=== PATIENT | male | born 1930 | race Caucasian/White ===

== ENCOUNTER 2016-09-22 08:23 | Emergency (ER) | payer OTHER, MEDICARE ==
[~2016-09-22] VITALS: Ht 167.6 cm; Wt 81.0 kg
[~2016-09-22 08:23] MED LIST: ALPR-411 PO; FLM4 PO; PRLSR20 PO; SYN25 PO; [UNRECOGNIZED DRUG - CODE] PO
[2016-09-22 08:25] VITALS: TEMP 36.5; Ht 167.6 cm; Wt 81.0 kg
--- NOTE | 2016-09-22 08:49 | EMERGENCY ROOM VISIT NOTE ---
History First contact with patient: 08:26 Chief Complaint: HEAD INJURY (MINOR) Stated Complaint: ARM PAIN History of Present Illness The patient is a 86 year old male who presents to the Emergency Room via ambulance with complaints of "head injury". The patient states that yesterday around 10 or 10:30 AM, he was cutting trees at work, when a tree fell and struck him on the head. He was wearing a hard hat. He states that it knocked him to the ground. He does not think he lost consciousness. He states that his neck is sore, and when he went to sit up out of bed today he had the worst pain of his life underneath his right shoulder blade. He also notes dizziness at times when he tries to sit up. He vomited this morning once, and 4 times in route to the hospital here today. The patient denies any anticoagulants, but does note that he is on a chronic NSAID therefore may have thinner blood. He denies any chest pain or shortness of breath. Tetanus is believed to be up to date. Review of Systems A complete 10-point Review of Systems was discussed with the patient, with pertinent positives and negatives listed in the History of Present Illness. All remaining Review of Systems questions can be considered negative unless otherwise specified. Past Medical/Surgical History Medical Problems: (1) Depression (2) Prostate cancer Family History No pertinent. Social History Smoking Status: Former Smoker Marital Status: Current/Historical Medications Scheduled Alprazolam (Xanax), 0.5 MG PO HS Cholecalciferol (Vitamin D3), 1 CAP PO DAILY Etodolac (Lodine), 1-2 TAB PO DAILY Levothyroxine Sodium (Levothyroxine Sodium), 1 TAB PO DAILY Omeprazole (Prilosec), 20 MG PO DAILY Tamsulosin Hcl (Flomax), 0.4 MG PO DAILY Physical Exam Vital Signs Date Time Temp Pulse Resp B/P (MAP) Pulse Ox O2 Delivery O2 Flow Rate FiO2 09/22/16 12:04 54 18 173/66 96 09/22/16 11:38 51 16 154/75 97 Nasal Cannula 2.0 09/22/16 11:01 166/78 09/22/16 10:43 51 18 09/22/16 10:31 166/72 09/22/16 10:13 51 18 99 09/22/16 10:01 162/72 09/22/16 09:43 52 19 99 09/22/16 09:43 51 18 172/73 95 Nasal Cannula 2.0 09/22/16 09:04 51 18 153/67 96 Nasal Cannula 2.0 09/22/16 08:59 54 09/22/16 08:25 36.5 56 18 166/70 94 Room Air Physical Exam VITAL SIGNS - Vital signs and nursing notes were reviewed. Patient is afebrile , bradycardic, somewhat hypertensive, and is saturating well on room air. GENERAL -86 [id number] appearing his stated age. Communicates well with provider and answers questions appropriately. SKIN - Gross examination of the entire body surface demonstrate no open lacerations to the body surface. There is evidence of a abrasion to the forehead, and right ear. HEAD - Normocephalic, Atraumatic. No Grant's Sign or Raccoon's Eyes. No depressed skull fractures palpable. EYES - PERRL with EOMI bilaterally. Without subconjunctival hemorrhage. Palpebral conjunctiva pink and moist with no injection. EARS - No deformities of external structures noted on gross examination bilaterally. No hemotympanum present. No tympanic perforation noted. Handle of malleus, umbo, cone of light, pars tensa/flaccid all easily visualized. NOSE - Midline and without cyanosis. No epistaxis or clear watery discharge noted. Septum midline without deviation. No septal hematoma noted. No overlying ecchymosis noted. MOUTH/OROPHARYNX - Without perioral cyanosis. Tongue midline with equal elevation of palate bilaterally. No blood noted in the oropharynx. No tonsillar hypertrophy, erythema, or exudates noted. No dental fractures noted. NECK - Cervical collar in place. No tenderness to palpation over the cervical spinous processes. No cervical paraspinal muscle tenderness noted. LUNGS - Chest wall symmetric without accessory muscle use, intercostals retractions, or central cyanosis. No flail chest or depressed fractures noted. No paradoxical chest wall movements noted. No tenderness to palpation across the anterior and posterior chest multani. No tenderness with deep inspiration noted against the examiner's applied pressure to the lateral chest multani. Normal vesicular breath sounds CTA B/L. No wheezes, rales, or rhonchi appreciated. CARDIAC - RRR with S1/S2. No murmur, rubs, or gallops appreciated. MUSCULOSKELETAL: There is tenderness to palpation overlying the thoracic spine region, in the area inferior to the right scapula. ABDOMEN - Abdominal contour normal and without pulsations or visible masses. BS normoactive all four quadrants. No rebound tenderness or guarding noted. Negative Crow's or Laguerre Burgess's Signs. No tenderness, palpable masses, hepatosplenomegaly, or ascites noted. EXTREMITIES - No gross deformities noted of the extremities. There is no tenderness to palpation of the extremities. +5/5 strength noted in UE/LE bilaterally. NEUROLOGIC - Cranial nerves II through XII grossly intact. Sensory intact to light touch throughout. PSYCH - A&O. Pt is very pleasant and interacts well with examiner. Medical Decision & Procedures ER Provider Diagnostic Interpretation: CHEST ONE VIEW PORTABLE CLINICAL HISTORY: Tree struck head, confusion. Back pain COMPARISON STUDY: Chest radiograph November 05, 2008. FINDINGS: Lung volumes are diminished. There is no pneumothorax. Left basilar opacity is present. Mild cardiomegaly is unchanged. There is possible left paraspinal opacity. IMPRESSION: 1. No pneumothorax. 2. Pulmonary vascular congestion without overt pulmonary edema. 3. Hazy left basilar and left paraspinal opacity which can be assessed on follow-up chest CT. Electronically signed by: Ankit White M.D. 09/22/2016 9:02 AM Dictated Date/Time: 09/22/2016 8:57 AM ADDENDUM Addendum: Maxillofacial CT demonstrated an acute nondisplaced left temporal bone fracture which is better depicted on that exam. Electronically signed by: Ankit White M.D. 09/22/2016 10:22 AM Dictated Date/Time: 09/22/2016 10:[address] OF THE HEAD WITHOUT CONTRAST CLINICAL HISTORY: Tree branch struck head, emesis. COMPARISON STUDY: Head CT June 22, 2016. TECHNIQUE: Helical axial images of the head were obtained without IV contrast. Automated exposure control was utilized for the study. A dose lowering technique was utilized adhering to the principles of ALARA. FINDINGS: No acute intracranial hemorrhage, midline shift or mass effect is present. Ventricular system is stable. Basilar cisterns are patent. There are no CT findings to suggest acute dural sinus thrombosis or acute territorial infarct. There is a small amount of pneumocephalus overlying the anterior right frontal lobe shown on axial image 15 of 32. There is suspected hemorrhage within the right maxillary and sphenoid sinuses. Right mastoid air cells are partially opacified. No calvarial fracture is identified. IMPRESSION: 1. No acute intracranial hemorrhage. 2. Small amount of pneumocephalus overlying the anterior right frontal lobe, posterior to the right frontal sinuses. No adjacent fracture through the sinuses identified by CT. In addition, trace pneumocephalus adjacent to the right mastoid air cells with fluid within the right mastoid air cells. No temporal bone fracture identified on the maxillofacial CT although the pneumocephalus suggests a nonvisualized nondisplaced fracture involving the sinuses or right mastoid air cells. Electronically signed by: Ankit White M.D. 09/22/2016 10:15 AM Dictated Date/Time: 09/22/2016 9:56 AM [~ rep ct add3]] CT OF THE CERVICAL SPINE WITHOUT CONTRAST CLINICAL HISTORY: Tree branch struck head, emesis, neck pain COMPARISON STUDY: No previous studies for comparison. TECHNIQUE: Helical axial images of the cervical spine were obtained without IV contrast. Sagittal and coronal reconstructions were viewed. A dose lowering technique was utilized adhering to the principles of ALARA. FINDINGS: Craniocervical junction is intact. There is an acute nondisplaced fracture of the right superior articulating facet of C7. No additional cervical spine fractures are present. Moderate multilevel degenerative disc disease and facet arthrosis is present. IMPRESSION: Acute nondisplaced fracture of the right superior articulating facet of C7. Electronically signed by: Ankit White M.D. 09/22/2016 10:27 AM Dictated Date/Time: 09/22/2016 10:[address] WITHOUT CONTRAST CLINICAL HISTORY: Struck on head with tree, facial pain/pressure COMPARISON STUDY: Maxillofacial CT June 22, 2013. TECHNIQUE: A maxillofacial CT was performed without IV contrast. Coronal and sagittal reformats were viewed. A dose lowering technique was utilized adhering to the principles of ALARA. FINDINGS: Note is made of an acute nondisplaced left temporal bone fracture shown on axial image 75 of 558. The globes are intact. There is no retrobulbar hematoma. There is suspected hemorrhage within the sphenoid and right maxillary sinuses. There is partial opacification of the right mastoid air cells. No temporal bone fracture is identified on this examination. There are old bilateral nasal bone fractures. Small amount of pneumocephalus is noted overlying the right frontal lobe as well as trace pneumocephalus adjacent to the right mastoid air cells. IMPRESSION: 1. Acute nondisplaced left temporal bone fracture. 2. Small amount of pneumocephalus anterior to the right frontal lobe as well as trace pneumocephalus adjacent to the right mastoid air cells which are partially opacified. This pneumocephalus indicates a fracture involving the sinuses or right temporal bones which is not definitively identified on this exam. The left temporal bone fracture may account for this pneumocephalus. 3. Suspected hemorrhage within the sphenoid and right maxillary sinuses. Electronically signed by: Ankit White M.D. 09/22/2016 10:21 AM Dictated Date/Time: 09/22/2016 10:16 AM THORACIC SPINE WITHOUT CLINICAL HISTORY: Tree branch struck head, emesis, back pain COMPARISON STUDY: No previous studies for comparison. FINDINGS: Alignment of the thoracic spine is anatomic. There is no acute thoracic spine fracture. Mild multilevel degenerative disc disease is present. There is mild loss of height of the superior endplate of L1 with a Schmorl's node. This is likely chronic. IMPRESSION: 1. No acute thoracic spine fracture or subluxation. 2. Mild loss of height of the superior plate of L1 with a Schmorl's node. This is likely chronic. Electronically signed by: Ankit White M.D. 09/22/2016 10:40 AM Dictated Date/Time: 09/22/2016 10:36 AM LUMBAR SPINE WITHOUT CLINICAL HISTORY: Tree branch struck head, emesis, back pain COMPARISON STUDY: No previous studies for comparison. FINDINGS: There is mild loss of height with a Schmorl's node involving the superior endplate of L1. This is likely chronic. No acute lumbar spine fracture is identified. [id number] multilevel degenerative changes are present. Paravertebral soft tissues are unremarkable. A large lesion arising from the lower pole of the left kidney is partially imaged on this exam. This measures at least 9.1 cm. This measures water attenuation within visualized portions. IMPRESSION: 1. Mild loss of height of the superior plate of L1 with a Schmorl's node. This is likely chronic. 2. No acute lumbar spine fracture or subluxation. 3. Partially visualized lesion arising from the lower pole of the left kidney which likely reflects a cyst. However, a follow-up nonemergent renal ultrasound is recommended for confirmation. Electronically signed by: Ankit White M.D. 09/22/2016 10:44 AM Dictated Date/Time: 09/22/2016 10:40 AM CHEST COMBO ANGIO DISSECTION CLINICAL HISTORY: Trauma. Left scapular pain. COMPARISON STUDY: No previous studies for comparison. TECHNIQUE: Unenhanced and arterial phase imaging of the chest was performed. Injection of 93 cc Optiray 320 IV was uneventful. Sagittal and coronal reconstructions were viewed as well as maximal intensity projections on an independent 3-D workstation. FINDINGS: The caliber of the thoracic aorta is normal. There is no evidence of traumatic injury to the thoracic aorta. There is no thoracic aortic dissection. The heart is moderately enlarged. There is no pericardial effusion. No pneumothorax or pleural effusion is present. There is no pulmonary contusion. Dependent opacities within the lungs suggest atelectasis. The thoracic spine will be reported separately. No acute rib fractures are identified. Central airways are patent. There is no left scapular fracture. There is a 1.2 cm right hepatic lobe cyst. IMPRESSION: 1. No acute traumatic findings within the chest. 2. No thoracic aortic dissection. 3. Moderate cardiomegaly. 4. Dependent airspace opacities within lungs which suggest atelectasis. Electronically signed by: Ankit White M.D. 09/22/2016 10:36 AM Dictated Date/Time: 09/22/2016 10:27 AM Laboratory Results Test 09/22/16 08:50 09/22/16 08:59 Prothrombin Time 11.5 SECONDS (9.0-12.0) Prothromb Time International Ratio 1.1 (0.9-1.1) Activated Partial Thromboplast Time 26.2 SECONDS (21.0-31.0) Partial Thromboplastin Ratio 1.0 Magnesium Level 2.1 mg/dl (1.8-2.4) Bedside Hemoglobin 15.6 g/dl (14.0-18.0) Bedside Hematocrit 46 % (42-52) Bedside Sodium 142 mEq/L (135-144) Bedside Potassium 3.8 mEq/L (3.3-5.0) Bedside Chloride 102 mEq/L (101-112) Bedside Total CO2 25 mEq/l (24-31) Anion Gap 20.0 mmol/L (16-25) Bedside Blood Urea Nitrogen 17 mg/dl (7-18) Bedside Creatinine 0.9 mg/dl (0.6-1.3) Bedside Glucose (other) 193 mg/dl (70-99) Bedside Ionized Calcium (Denise) 1.18 mmol/l (1.12-1.32) Medications Administered Medications (Trade) Dose Ordered Sig/Edilma Route Start Time Stop Time Status Last Admin Dose Admin Diphenhydramine HCl (Benadryl Inj) 50 mg NOW STAT IV 09/22/16 08:53 09/22/16 08:55 DC 09/22/16 09:04 50 MG Methylprednisolone Sodium Succinate (Solu-Medrol IV) 125 mg NOW STAT IV 09/22/16 08:53 09/22/16 08:55 DC 09/22/16 09:04 125 MG Sodium Chloride 1,000 ml @ 200 mls/hr Q5H STAT IV 09/22/16 08:57 09/22/16 13:25 DC 09/22/16 08:57 200 MLS/HR Ondansetron HCl (Zofran Inj) 4 mg NOW STAT IV 09/22/16 11:27 09/22/16 11:29 DC 09/22/16 11:38 4 MG Fentanyl Citrate (Fentanyl Inj) 50 mcg NOW STAT IV 09/22/16 11:27 09/22/16 11:29 DC 09/22/16 11:38 50 MCG Medical Decision Patient was seen and evaluated as above. After obtaining a thorough history and physical examination IV access was initiated and the above workup was performed. Patient presents to us today status post being struck in the head by a tree yesterday. He has had dizziness, emesis and severe pain in his back. C-collar was already applied via ambulance in route. Physical examination is negative for pain in the spinous process of the c spine but is positive in the thoracic spine, as well as pressure in the left sinus region. Chest x-ray reveals hazy opacity in the left lung field. CT was obtained of the head, C-spine, chest, thoracic and lumbar spine. He was also obtained a maxillofacial region. Patient has an iodine allergy, however he was premedicated with 50 mg of Benadryl, and 125 mg of solumedrol prior to this CT scan. There is a left temporal bone fracture, C7 fracture, and pneumocephalus. At this time I believe that transfer to a trauma facility is appropriate. He declined pain medication. He was given 200 mL of normal saline here per hour. He was then given 50 mcg of fentanyl, and 4 mg of Zofran for his pain. He appears stable for discharge. His vital signs are stable, I spoke with the ER attending at [facility]. This was Dr. Velez. He accepted the patient for transfer. Patient at this time appears stable for ground transfer. The attending has been involved with the patient case. Vital signs stable. In the evaluation and treatment of this patient, the following differential diagnoses were considered: Concussion, Contrecoup Injury, Brain Tumor, Depression, Encephalitis, Hypothyroidism, Meningitis, CVA, TIA, Migraine, Cluster Headache, Intracranial Abnormality, Intracranial Hemorrhage, Subdural Hematoma, Subarachnoid Hemorrhage, Hydrocephalus, C-spine fracture, among others. Medication Reconcilliation Current Medication List: was personally reviewed by me Impression Primary Impression: Closed head injury Additional Impressions: Pneumocephalus, traumatic Temporal bone fracture Closed C7 fracture Critical Care I have personally spent greater than 30 minutes of critical care time in the direct management of this patient. This includes bedside care, interpretation of diagnostic studies, and testing, discussion with consultants, patient, and family members, and other required patient management activities. This 30 minutes is in excess of all separately billable procedures. Departure Information Dispostion Transfer Acute Care Facility Condition FAIR Referrals Malcolm Cruz M.D. (PCP) Patient Instructions [facility] Problem Qualifiers Primary Impression: Closed head injury Encounter type: initial encounter Qualified Codes: S09.90XA - Unspecified injury of head, initial encounter Additional Impressions: Temporal bone fracture Encounter type: initial encounter Fracture type: closed Qualified Codes: S02.19XA - Other fracture of base of skull, initial encounter for closed fracture Closed C7 fracture Encounter type: initial encounter Fracture alignment: nondisplaced
[2016-09-22] MEDS ORDERED: METHYLPREDNISOLONE 125 MG VIAL IV STA (08:53)
[2016-09-22] MEDS ORDERED: DiphenhydrAMINE HCL 50 MG/ML VIAL IV STA (08:53)
[2016-09-22] MEDS ORDERED: SODIUM CHLORIDE 0.9% 1000ML 1,000 ML IV STA (08:57)
--- NOTE | 2016-09-22 09:04 | DIAGNOSTIC IMAGING REPORT ---
CHEST ONE VIEW PORTABLE CLINICAL HISTORY: Tree struck head, confusion. Back pain COMPARISON STUDY: Chest radiograph November 05, 2008. FINDINGS: Lung volumes are diminished. There is no pneumothorax. Left basilar opacity is present. Mild cardiomegaly is unchanged. There is possible left paraspinal opacity. IMPRESSION: 1. No pneumothorax. 2. Pulmonary vascular congestion without overt pulmonary edema. 3. Hazy left basilar and left paraspinal opacity which can be assessed on follow-up chest CT. Electronically signed by: Ankit White M.D. 09/22/2016 9:02 AM Dictated Date/Time: 09/22/2016 8:57 AM
[2016-09-22 09:10] LABS: INR 1.1 (0.9-1.1); PROTHROMBIN TIME (PATIENT) 11.5 SECONDS (9.0-12.0)
[2016-09-22 09:14] LABS: ISTAT CREATININE 0.9 mg/dl (0.6-1.3); ISTAT HEMOGLOBIN 15.6 g/dl (14.0-18.0); ISTAT IONIZED CALCIUM 1.18 mmol/l (1.12-1.32)
[2016-09-22] MEDS ORDERED: OPTIRAY 320 IV PRN (09:15)
[2016-09-22] MEDS ORDERED: LEVO75TA5 PO (09:58)
[2016-09-22] MEDS ORDERED: ETOD-146 PO (09:58)
[2016-09-22] MEDS ORDERED: TAMS0.4C38 PO (09:58)
[2016-09-22] MEDS ORDERED: CHOL2000 PO (09:59)
[2016-09-22] MEDS ORDERED: PRLSR20 PO (09:59)
--- NOTE | 2016-09-22 10:17 | DIAGNOSTIC IMAGING REPORT ---
ADDENDUM Addendum: Maxillofacial CT demonstrated an acute nondisplaced left temporal bone fracture which is better depicted on that exam. Electronically signed by: Ankit White M.D. 09/22/2016 10:22 AM Dictated Date/Time: 09/22/2016 10:[address] OF THE HEAD WITHOUT CONTRAST CLINICAL HISTORY: Tree branch struck head, emesis. COMPARISON STUDY: Head CT June 22, 2016. TECHNIQUE: Helical axial images of the head were obtained without IV contrast. Automated exposure control was utilized for the study. A dose lowering technique was utilized adhering to the principles of ALARA. FINDINGS: No acute intracranial hemorrhage, midline shift or mass effect is present. Ventricular system is stable. Basilar cisterns are patent. There are no CT findings to suggest acute dural sinus thrombosis or acute territorial infarct. There is a small amount of pneumocephalus overlying the anterior right frontal lobe shown on axial image 15 of 32. There is suspected hemorrhage within the right maxillary and sphenoid sinuses. Right mastoid air cells are partially opacified. No calvarial fracture is identified. IMPRESSION: 1. No acute intracranial hemorrhage. 2. Small amount of pneumocephalus overlying the anterior right frontal lobe, posterior to the right frontal sinuses. No adjacent fracture through the sinuses identified by CT. In addition, trace pneumocephalus adjacent to the right mastoid air cells with fluid within the right mastoid air cells. No temporal bone fracture identified on the maxillofacial CT although the pneumocephalus suggests a nonvisualized nondisplaced fracture involving the sinuses or right mastoid air cells. Electronically signed by: Ankit White M.D. 09/22/2016 10:15 AM Dictated Date/Time: 09/22/2016 9:56 AM
--- NOTE | 2016-09-22 10:23 | DIAGNOSTIC IMAGING REPORT ---
MAXILLOFACIAL CT WITHOUT CONTRAST CLINICAL HISTORY: Struck on head with tree, facial pain/pressure COMPARISON STUDY: Maxillofacial CT June 22, 2013. TECHNIQUE: A maxillofacial CT was performed without IV contrast. Coronal and sagittal reformats were viewed. A dose lowering technique was utilized adhering to the principles of ALARA. FINDINGS: Note is made of an acute nondisplaced left temporal bone fracture shown on axial image 75 of 558. The globes are intact. There is no retrobulbar hematoma. There is suspected hemorrhage within the sphenoid and right maxillary sinuses. There is partial opacification of the right mastoid air cells. No temporal bone fracture is identified on this examination. There are old bilateral nasal bone fractures. Small amount of pneumocephalus is noted overlying the right frontal lobe as well as trace pneumocephalus adjacent to the right mastoid air cells. IMPRESSION: 1. Acute nondisplaced left temporal bone fracture. 2. Small amount of pneumocephalus anterior to the right frontal lobe as well as trace pneumocephalus adjacent to the right mastoid air cells which are partially opacified. This pneumocephalus indicates a fracture involving the sinuses or right temporal bones which is not definitively identified on this exam. The left temporal bone fracture may account for this pneumocephalus. 3. Suspected hemorrhage within the sphenoid and right maxillary sinuses. Electronically signed by: Ankit White M.D. 09/22/2016 10:21 AM Dictated Date/Time: 09/22/2016 10:16 AM
--- NOTE | 2016-09-22 10:28 | DIAGNOSTIC IMAGING REPORT ---
CT OF THE CERVICAL SPINE WITHOUT CONTRAST CLINICAL HISTORY: Tree branch struck head, emesis, neck pain COMPARISON STUDY: No previous studies for comparison. TECHNIQUE: Helical axial images of the cervical spine were obtained without IV contrast. Sagittal and coronal reconstructions were viewed. A dose lowering technique was utilized adhering to the principles of ALARA. FINDINGS: Craniocervical junction is intact. There is an acute nondisplaced fracture of the right superior articulating facet of C7. No additional cervical spine fractures are present. Moderate multilevel degenerative disc disease and facet arthrosis is present. IMPRESSION: Acute nondisplaced fracture of the right superior articulating facet of C7. Electronically signed by: Ankit White M.D. 09/22/2016 10:27 AM Dictated Date/Time: 09/22/2016 10:22 AM
--- NOTE | 2016-09-22 10:37 | DIAGNOSTIC IMAGING REPORT ---
CHEST COMBO ANGIO DISSECTION CLINICAL HISTORY: Trauma. Left scapular pain. COMPARISON STUDY: No previous studies for comparison. TECHNIQUE: Unenhanced and arterial phase imaging of the chest was performed. Injection of 93 cc Optiray 320 IV was uneventful. Sagittal and coronal reconstructions were viewed as well as maximal intensity projections on an independent 3-D workstation. FINDINGS: The caliber of the thoracic aorta is normal. There is no evidence of traumatic injury to the thoracic aorta. There is no thoracic aortic dissection. The heart is moderately enlarged. There is no pericardial effusion. No pneumothorax or pleural effusion is present. There is no pulmonary contusion. Dependent opacities within the lungs suggest atelectasis. The thoracic spine will be reported separately. No acute rib fractures are identified. Central airways are patent. There is no left scapular fracture. There is a 1.2 cm right hepatic lobe cyst. IMPRESSION: 1. No acute traumatic findings within the chest. 2. No thoracic aortic dissection. 3. Moderate cardiomegaly. 4. Dependent airspace opacities within lungs which suggest atelectasis. Electronically signed by: Ankit White M.D. 09/22/2016 10:36 AM Dictated Date/Time: 09/22/2016 10:27 AM
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
[2016-09-22] MEDS ORDERED: FENTANYL CITRATE INJ 50 MCG/1 ML 2 ML VIAL IV STA (11:27)
[2016-09-22] MEDS ORDERED: ONDANSETRON INJ 2 MG/ML 2 ML VIAL IV STA (11:27)
[2016-09-22 12:04] VITALS: BP 173/66; PULSE 54; O2SAT 96
--- NOTE | 2016-09-22 14:58 | EMERGENCY ROOM VISIT NOTE ---
ED Visit Note First contact with patient: 08:26 I have personally seen and evaluated the patient with the PA. I agree with the diagnosis and management decisions and have been personally involved in the case. The patient was evaluated, C-spine exam reveals some tenderness along the cervical and midthoracic spine. He does complain of a headache. CT scan results were reviewed with the PA. Transfer arrangements were made. Please see Jared Mehta PA-C's notes for further details of the history, physical and visit.
== END 2016-09-22 12:04 | disposition short-term general hospital (02) ==
LOC: EDBD 08:23 → C.EDA 08:24
DX: S09.90XA Unspecified injury of head, initial encounter (principal); S02.19XA Other fracture of base of skull, initial encounter for closed fracture; S12.601A Unspecified nondisplaced fracture of seventh cervical vertebra, initial encounter for closed fracture; G93.89 Other specified disorders of brain; W22.8XXA Striking against or struck by other objects, initial encounter; Y93.H9 Activity, other involving exterior property and land maintenance, building and construction; Y99.0 Civilian activity done for income or pay; F32.9 Major depressive disorder, single episode, unspecified; Z85.46 Personal history of malignant neoplasm of prostate; Z79.1 Long term (current) use of non-steroidal anti-inflammatories (NSAID); Z79.899 Other long term (current) drug therapy

== ENCOUNTER 2016-12-19 17:47 | Emergency (ER) | payer OTHER, MEDICARE ==
[~2016-12-19] VITALS: Ht 167.6 cm; Wt 75.2 kg
[~2016-12-19 17:47] MED LIST changes: +CHOL2000 PO; +ETOD-146 PO; -FLM4 PO; +LEVO75TA5 PO; -SYN25 PO; +TAMS0.4C38 PO; -[UNRECOGNIZED DRUG - CODE] PO
[2016-12-19 17:59] VITALS: Ht 167.6 cm; Wt 75.2 kg
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
[2016-12-19] MEDS ORDERED: ACET-1256 PO (18:28)
[2016-12-19] MEDS ORDERED: DIPHTHERIA/TETANUS/PERTUSSIS 0.5 ML SYR/VIAL IM. ONE (18:45)
[2016-12-19 19:14] LABS: HEMATOCRIT 47.1 % (42-52); MEAN CELL VOLUME 91.5 fL (80-100); MEAN CORPUSCULAR HEMOGLOBIN 32.4 pg (25-34); MEAN CORPUSCULAR HGB CONC 35.5 g/dl (32-36); MEAN PLATELET VOLUME 10.5 fL (7.4-10.4); PLATELET COUNT 183 K/uL (130-400); RED BLOOD COUNT 5.15 M/uL (4.7-6.1); WHITE BLOOD COUNT 9.92 K/uL (4.8-10.8)
[2016-12-19 19:25] LABS: INR 1.1 (0.9-1.1); PROTHROMBIN TIME (PATIENT) 11.3 SECONDS (9.0-12.0)
--- NOTE | 2016-12-19 19:29 | DIAGNOSTIC IMAGING REPORT ---
CT SCAN OF THE BRAIN WITHOUT IV CONTRAST CLINICAL HISTORY: Trauma. COMPARISON STUDY: CT the brain dated 09/22/2016. TECHNIQUE: Unenhanced axial CT scan of the brain is performed from the vertex to the skull base. CT DOSE: 638.56 mGycm FINDINGS: Brain parenchyma: There are age-related involutional changes noting mild subcortical and periventricular microangiopathic change. There is no parenchymal hematoma, mass effect, or evidence of acute territorial ischemia by CT criteria. Dunlap-white matter is preserved. Asymmetric hyperdensity along the left tensor cerebella lead is new from 09/22/2016 and likely represents trace subdural hemorrhage. No additional foci of extra-axial blood are suspected. Ventricles, sulci, cisterns: Prominent secondary to involutional change. Intracranial vasculature: There is atherosclerotic calcification of the cavernous carotid and vertebral arteries. Calvarium: The skeletal structures are osteopenic. No depressed calvarial fracture is seen. Sinuses and mastoids: There is complete opacification of the left sphenoid sinus. Mild mucosal thickening is seen in the right sphenoid sinus. The remaining visualized paranasal sinuses are clear. There is a right mastoid effusion. The left mastoid air cells are well pneumatized. Orbits: The bony orbits are grossly intact. IMPRESSION: 1. Suspect trace subdural hemorrhage along the left tentorium cerebelli. 2. No additional foci of hemorrhage is seen. There is no mass effect or evidence of acute territorial ischemia by CT criteria. 3. Left sphenoid sinus disease and right mastoid effusion as above. Electronically signed by: Luis Glass M.D. 12/19/2016 7:28 PM Dictated Date/Time: 12/19/2016 7:10 PM
--- NOTE | 2016-12-19 19:33 | DIAGNOSTIC IMAGING REPORT ---
CT SCAN OF THE CERVICAL SPINE CLINICAL HISTORY: Trauma. COMPARISON STUDY: CT scan of the cervical spine dated 09/22/2016. TECHNIQUE: CT scan of the cervical spine is performed from the skull base to the upper thoracic spine. Images are reviewed in the axial, sagittal, and coronal planes. IV contrast was not administered for this examination. A dose lowering technique was utilized adhering to the principles of ALARA. CT DOSE: 425.04 mGycm FINDINGS: Skeletal structures: The skeletal structures are osteopenia. There is no evidence of fracture or subluxation involving the cervical spine. Vertebral body height is maintained. There is minimal retrolisthesis at C4-C5. Alignment is otherwise preserved. There is straightening of the cervical lordosis. The odontoid process and lateral masses are intact. The atlantoaxial articulation is preserved noting advanced productive degenerative change. The spinous processes appear intact. There is moderate to advanced multilevel cervical spondylosis. Uncovertebral and facet arthropathy contributes to foraminal narrowing at most levels. Intervertebral discs: Moderate to advanced disc space narrowing is seen from C3 -C4 through C6-C7. Central canal: Posterior disc osteophyte complexes at C3-C4, C5-C6, and C6-C7 likely contribute to acquired compromise of the central canal. Soft tissues: The prevertebral and paraspinous soft tissues are within normal limits. Calvarium: The visualized calvarium at the skull base appears intact. Brain parenchyma: Partially visualized brain parenchyma the skull base is within normal limits noting age-related involutional change. Sinuses and mastoids: There is opacification of the left sphenoid sinus. Trace because of thickening is noted in the right sphenoid sinus. There is a right mastoid effusion. The left mastoid air cells are well pneumatized. Lung apices: Clear as visualized. IMPRESSION: 1. There is no evidence of fracture or subluxation involving the cervical spine. 2. Osteopenia and spondylotic change as above. Electronically signed by: Luis Glass M.D. 12/19/2016 7:32 PM Dictated Date/Time: 12/19/2016 7:28 PM
[2016-12-19 19:41] LABS: BUN/CREATININE RATIO 11.5 (10-20); CALCIUM 9.3 mg/dl (8.5-10.1); CREATININE 1.21 mg/dl (0.60-1.40); POTASSIUM 4.1 mmol/L (3.5-5.1)
[2016-12-19] MEDS ORDERED: SODIUM CHLORIDE 0.9% 1000ML 1,000 ML IV STA (19:42)
[2016-12-19] MEDS ORDERED: LIDOCAINE/EPINEPHRINE 1% 20 ML VIAL INFIL ONE (19:45)
[2016-12-19] MEDS ORDERED: LEVETIRACETAM IV 1,000 MG in DEXTROSE 5% 100ML 100 ML IV ONE (19:45)
[2016-12-19 19:53] LABS: BETA-HYDROXYBUTYRATE 10.14 mg/dL (0.2-2.81)
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
--- NOTE | 2016-12-19 20:25 | DIAGNOSTIC IMAGING REPORT ---
LEFT HUMERUS 2 VIEWS CLINICAL HISTORY: Left arm injury. FINDINGS: AP and lateral views of the left humerus are obtained. No prior studies are available for comparison at the time of dictation. The skeletal structures are osteopenic. There is no radiographic evidence of left humeral fracture. The elbow and shoulder joints are grossly maintained. Productive change is seen at the acromioclavicular joint. Soft tissue edema is present in the left arm. No radiodense foreign body is seen. IMPRESSION: 1. Osteopenia with no radiographic evidence of left humeral fracture. 2. Soft tissue edema. No radiodense foreign body is identified. Electronically signed by: Luis Glass M.D. 12/19/2016 8:24 PM Dictated Date/Time: 12/19/2016 8:23 PM
--- NOTE | 2016-12-19 20:27 | DIAGNOSTIC IMAGING REPORT ---
SINGLE VIEW PELVIS CLINICAL HISTORY: Trauma. FINDINGS: 2 AP pelvic radiographs are correlated with pelvic CT dated 01/16/2008. The skeletal structures are osteopenic. There is no radiographic evidence of fracture in the hips or bony pelvis. Moderate arthritic change with joint space narrowing is seen in both hips. Sclerotic change is identified in the sacroiliac joints. There is a remote/healed right pubic ring fracture. This was also seen by CT in 2007. Lumbosacral spondylosis is partially imaged. Brachytherapy seeds are noted in the prostate gland. The overlying soft tissues are normal as visualized. Advanced atherosclerotic calcification is seen in the visualized abdominal aorta and iliac arteries. IMPRESSION: Osteopenia and degenerative change as above. There is no radiographic evidence of acute fracture involving the hips or bony pelvis. Electronically signed by: Luis Glass M.D. 12/19/2016 8:26 PM Dictated Date/Time: 12/19/2016 8:24 PM
--- NOTE | 2016-12-19 20:44 | DIAGNOSTIC IMAGING REPORT ---
SINGLE VIEW CHEST CLINICAL HISTORY: Trauma. FINDINGS: An AP, portable, upright supine radiograph is compared to study dated 09/22/2016. The examination is degraded by portable technique and patient rotation. The heart is enlarged and there is atherosclerotic calcification of the thoracic aorta. The pulmonary vasculature is noncongested. Chronic interstitial thickening is similar to previous. Minimal left basilar atelectasis is observed. No airspace consolidation is seen typical for pneumonia. There is no large pleural effusion or pneumothorax. The skeletal structures are osteopenic. The bony thorax is grossly intact. IMPRESSION: Cardiomegaly with no acute cardiopulmonary abnormality. Electronically signed by: Luis Glass M.D. 12/19/2016 8:42 PM Dictated Date/Time: 12/19/2016 8:41 PM
[2016-12-19 21:16] VITALS: BP 128/77; PULSE 64; TEMP 37.2; O2SAT 96
== END 2016-12-19 21:18 | disposition short-term general hospital (02) ==
LOC: C.EDB 17:49
DX: S06.5X0A Traumatic subdural hemorrhage without loss of consciousness, initial encounter (principal); V85.5XXA Driver of special construction vehicle injured in nontraffic accident, initial encounter; Z23 Encounter for immunization; E03.9 Hypothyroidism, unspecified; F32.9 Major depressive disorder, single episode, unspecified; Z80.42 Family history of malignant neoplasm of prostate; Z87.81 Personal history of (healed) traumatic fracture; Z79.899 Other long term (current) drug therapy; Z91.09 Other allergy status, other than to drugs and biological substances

== ENCOUNTER 2017-03-18 16:47 | Inpatient (IN) | payer OTHER, MEDICARE ==
[~2017-03-18] VITALS: Ht 167.6 cm; Wt 73.5 kg
[~2017-03-18 16:47] MED LIST changes: +ACET-1256 PO; -CHOL2000 PO; -ETOD-146 PO; -PRLSR20 PO
[2017-03-18] MEDS ORDERED: SODIUM CHLORIDE 0.9% 1000ML 1,000 ML IV STA ×2 (17:07→17:51)
--- NOTE | 2017-03-18 17:29 | DIAGNOSTIC IMAGING REPORT ---
CHEST ONE VIEW PORTABLE CLINICAL HISTORY: Atypical chest pain, fatigue, flulike symptoms COMPARISON STUDY: 12/19/2016 FINDINGS: The cardiac and mediastinal contours are normal. There is no evidence of focal pulmonary consolidation. There is no evidence of failure. No pleural effusions are visualized.[ IMPRESSION: No active disease in the chest. Electronically signed by: Kehinde Che M.D. 03/18/2017 5:28 PM Dictated Date/Time: 03/18/2017 5:28 PM
--- NOTE | 2017-03-18 17:40 | EMERGENCY ROOM VISIT NOTE ---
History Report prepared by Won: Chelo Gonzalez Under the Supervision of: Dr. Bennie Quevedo M.D. First contact with patient: 17:05 Chief Complaint: WEAKNESS Stated Complaint: WEAKNESS FROM SHINGLES, FLU LIKE SX- REFERRED History of Present Illness The patient is an 87 year old male who presents to the Emergency Room with complaints of persistent weakness starting 4 days ago. The patient was sent to the ED by his PCP for weakness and dehydration. He is currently being treated for shingles. He started acyclovir 10 days ago. Earlier last week, he started having some flu symptoms. He has had vomiting, shakes, and chills. He has not taken his temperature. He is normally able to walk without assistance, but recently has been unable to. He has not been eating well. He has had loose stools. He has had dark urine which he thinks might have blood. He denies any burning with urination. He has a history of prostate cancer and hypothyroidism. He was recently started on metformin for diabetes. He received a flu shot this season. His shingles has been improving on the medication. Source of History: patient, family Onset: 4 days ago Position: other (global) Quality: other (weakness) Timing: other (persistent) Associated Symptoms: + chills, + vomiting Note: Pt reports loose stools, dark urine. Pt denies burning with urination. Review of Systems See HPI for pertinent positives and negatives. A total of ten systems were reviewed and were otherwise negative. 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, traumatic (12) Prostate cancer (13) Temporal bone fracture (14) Transaminitis Surgical Problems: (1) History of arthroplasty of left knee (2) History of arthroplasty of right knee (3) Hx of rotator cuff surgery Family History Diabetes mellitus Social History Smoking Status: Never Smoker Alcohol Use: none Marital Status: Current/Historical Medications Scheduled Empagliflozin (Jardiance), 25 MG PO HS Levothyroxine Sodium (Levothyroxine Sodium), 75 MCG PO DAILY Metformin Hcl (Glucophage), 500 MG PO QAM Tamsulosin Hcl (Flomax), 0.4 MG PO DAILY Scheduled PRN Acetaminophen (Tylenol), 1,000 MG PO Q6 PRN for Headache or Pain Alprazolam (Xanax), 0.5 MG PO HS PRN for Anxiety Allergies Coded Allergies: Iodinated Diagnostic Agents (Verified Allergy, Unknown, ., 03/18/17) Iodine (Verified Allergy, Unknown, ALLERGY TO IVP DYE, 03/18/17) Physical Exam Vital Signs Date Time Temp Pulse Resp B/P (MAP) Pulse Ox O2 Delivery O2 Flow Rate FiO2 03/18/17 19:52 61 21 108/63 93 Room Air 03/18/17 19:30 64 21 94 03/18/17 19:00 62 21 96 03/18/17 17:21 74 03/18/17 17:12 Room Air 03/18/17 17:02 36.4 53 16 88/56 95 Room Air Physical Exam GENERAL: Awake, alert, fatigued-appearing, in no distress HENT: Normocephalic, atraumatic. Dry cracked mucous membranes. EYES: Normal conjunctiva. Sclera non-icteric. NECK: Supple. No nuchal rigidity. FROM. No JVD. RESPIRATORY: Clear to auscultation. CARDIAC: Regular rate, normal rhythm. Extremities warm and well perfused. Pulses equal. ABDOMEN: Soft, non-distended. No tenderness to palpation. No rebound or guarding. No masses. RECTAL: Deferred. MUSCULOSKELETAL: Chest examination reveals no tenderness. The back is symmetrical on inspection without obvious abnormality. There is no CVA tenderness to palpation. No joint edema. LOWER EXTREMITIES: Calves are equal size bilaterally and non-tender. No edema. No discoloration. NEURO: Normal sensorium. No sensory or motor deficits noted. SKIN: Resolving erythema and dry pustules in the left flank CVA area consistent with known zoster. Medical Decision & Procedures ER Provider Diagnostic Interpretation: Radiology results as stated below per my review and radiologist interpretation: CHEST ONE VIEW PORTABLE CLINICAL HISTORY: Atypical chest pain, fatigue, flulike symptoms COMPARISON STUDY: 12/19/2016 FINDINGS: The cardiac and mediastinal contours are normal. There is no evidence of focal pulmonary consolidation. There is no evidence of failure. No pleural effusions are visualized.[ IMPRESSION: No active disease in the chest. Electronically signed by: Kehinde Che M.D. 03/18/2017 5:28 PM Dictated Date/Time: 03/18/2017 5:[address] SCAN OF THE ABDOMEN AND PELVIS WITHOUT CONTRAST CLINICAL HISTORY: Abdominal pain. Elevated LFTs. COMPARISON STUDY: No previous studies for comparison. TECHNIQUE: CT scan of the abdomen and pelvis was performed from the lung bases to the proximal femurs. Images are reviewed in the axial, sagittal, and coronal planes. IV contrast was not administered for this examination. A dose lowering technique was utilized adhering to the principles of ALARA. CT DOSE: 356.37 mGy.cm FINDINGS: Lower chest: The heart is mildly enlarged. There is bilateral lower lobe bronchial wall thickening and basilar atelectatic change. Trace effusions are suspected. Liver: The unenhanced liver is normal in size, contour, and attenuation. There is no intrahepatic biliary ductal dilatation. Gallbladder: Mildly distended. No calculi are visualized. Spleen: Normal in size and attenuation. Pancreas: Unremarkable. Adrenal glands: Unremarkable. Kidneys: No renal, ureteral, or bladder calculi are visualized. There is a 9.7 cm left renal cyst. Bowel: There is colonic diverticulosis. No acute peridiverticular inflammatory changes are visualized. The appendix appears normal. There is no evidence of bowel obstruction. There is no evidence of free air. Peritoneum: There is no intraperitoneal free air or abdominal ascites. Vasculature: The abdominal aorta is normal in course and caliber. Adenopathy: None. Pelvic viscera: Prostate patient therapy seeds are visualized. Skeletal structures: There is an old right inferior pubic ramus fracture. No lytic or suspicious blastic lesions are visualized. A right femoral head calcification while nonspecific likely represents a bone island. IMPRESSION: 1. Examination limited due to the lack of intravenous and oral contrast 2. No evidence of bowel obstruction. No evidence of free air 3. Diverticulosis. No evidence of acute diverticulitis 4. Normal appendix 5. 9.7 cm left renal cyst 6. Mild gallbladder distention. No calculi are visualized. No evidence of significant ductal dilatation. Electronically signed by: Kehinde Che M.D. 03/18/2017 8:15 PM Dictated Date/Time: 03/18/2017 8:09 PM Laboratory Results 03/18/17 17:31 Red Blood Count 5.07, Mean Corpuscular Volume 93.5, Mean Corpuscular Hemoglobin 33.5, Mean Corpuscular Hemoglobin Concent 35.9, Mean Platelet Volume 11.4, Neutrophils (%) (Auto) 90.7, Lymphocytes (%) (Auto) 4.8, Monocytes (%) (Auto) 3.8, Eosinophils (%) (Auto) 0.2, Basophils (%) (Auto) 0.1, Neutrophils # (Auto) 17.31, Lymphocytes # (Auto) 0.91, Monocytes # (Auto) 0.72, Eosinophils # (Auto) 0.03, Basophils # (Auto) 0.02 Test 03/18/17 17:31 03/18/17 21:17 White Blood Count 19.06 K/uL (4.8-10.8) Red Blood Count 5.07 M/uL (4.7-6.1) Hemoglobin 17.0 g/dL (14.0-18.0) Hematocrit 47.4 % (42-52) Mean Corpuscular Volume 93.5 fL (80-100) Mean Corpuscular Hemoglobin 33.5 pg (25-34) Mean Corpuscular Hemoglobin Concent 35.9 g/dl (32-36) Platelet Count 68 K/uL (130-400) Mean Platelet Volume 11.4 fL (7.4-10.4) Neutrophils (%) (Auto) 90.7 % Lymphocytes (%) (Auto) 4.8 % Monocytes (%) (Auto) 3.8 % Eosinophils (%) (Auto) 0.2 % Basophils (%) (Auto) 0.1 % Neutrophils # (Auto) 17.31 K/uL (1.4-6.5) Lymphocytes # (Auto) 0.91 K/uL (1.2-3.4) Monocytes # (Auto) 0.72 K/uL (0.11-0.59) Eosinophils # (Auto) 0.03 K/uL (0-0.5) Basophils # (Auto) 0.02 K/uL (0-0.2) RDW Standard Deviation 47.9 fL (36.4-46.3) RDW Coefficient of Variation 14.2 % (11.5-14.5) Immature Granulocyte % (Auto) 0.4 % Immature Granulocyte # (Auto) 0.07 K/uL (0.00-0.02) Platelet Estimate DECREASED Spherocytes 1+ Magnesium Level 2.6 mg/dl (1.8-2.4) Direct Bilirubin 3.0 mg/dl (0-0.2) Troponin I 0.019 ng/ml (0-0.045) Lipase 886 U/L (73-393) Influenza Type A Antigen Neg for Influ A (NEG) Influenza Type B Antigen Neg for Influ B (NEG) Urine Color DK YELLOW Urine Appearance CLOUDY (CLEAR) Urine pH 5.0 (4.5-7.5) Urine Specific [place] 1.023 (1.000-1.030) Urine Protein TRACE (NEG) Urine Glucose (UA) 3+ (NEG) Urine Ketones TRACE (NEG) Urine Occult Blood 1+ (NEG) Urine Nitrite POS (NEG) Urine Bilirubin NEG (NEG) Urine Urobilinogen NEG (NEG) Urine Leukocyte Esterase MODERATE (NEG) Urine WBC (Auto) >30 /hpf (0-5) Urine RBC (Auto) 0-4 /hpf (0-4) Urine Hyaline Casts (Auto) 1-5 /lpf (0-5) Urine Epithelial Cells (Auto) 0-5 /lpf (0-5) Urine Bacteria (Auto) 4+ (NEG) Urine Pathogenic Casts 1-5 GRANULAR CASTS /lpf (0) Urine Sperm (Auto) (NOT PRESENT) Laboratory results reviewed by me Medications Administered Medications (Trade) Dose Ordered Sig/Edilma Route Start Time Stop Time Status Last Admin Dose Admin Sodium Chloride 1,000 ml @ 999 mls/hr Q1H1M STAT IV 03/18/17 17:07 03/18/17 18:07 DC 03/18/17 17:39 999 MLS/HR Sodium Chloride 1,000 ml @ 999 mls/hr Q1H1M STAT IV 03/18/17 17:51 03/18/17 18:51 DC 03/18/17 18:13 999 MLS/HR ECG Indication: weakness Rate (beats per minute): 72 Rhythm: sinus rhythm Findings: PVC (frequent), RBBB, no acute ischemic change, left axis deviation Comparison ECG Date: 05-Nov-2008 Change: no significant change ED Course 1706: The patient was evaluated in room C1B. A complete history and physical exam was performed. 2020: Upon reexamination, the patient was stable. I discussed the test results and treatment plan with him and his family. The patient will be evaluated for further management. 2049: I discussed the patient with Martin Aragon - He will evaluate the patient for further treatment. 2051: I reevaluated the patient. I updated him and his family on the plan. Medical Decision I reviewed the patient's past medical history, medications, and the nursing notes as described above. Differential diagnosis: influenza, viral syndrome, pneumonia, bronchitis, UTI, dehydration, electrolyte abnormality, ACS, CHF. The patient is a 87-year-old gentleman with a past medical history of prostate cancer on Flomax, NIDDM2 was started on metformin and recent diagnosis of zoster on acyclovir who presents emergency Department with worsening generalized weakness over the past 4 days in the setting of congestion and loose stools per hpi. On arrival the patient is AF with SBP upper 80s and otherwise stable. On exam the patient has dry cracked mucous membranes. He has left lower abdomen and flank resolving erythema and dried pustules consistent with the patients known zoster. Labs notable for a leukocytosis to 19. LFTs also elevated with tbli 4.6 and dbili 3.0. AST 150, ALT 400s. He is concerning for new hepatitis. CT abd/pel limited secondary to lack of contrast however no acute findings. Patient does appear clinically dry with BUN/Cr/creatinine>20. Feeling improved after IV fluid hydration with SBP 100s. Review of recent lab tests for both inpatient and outpatient suggest patient's hepatitis is likely new possibly related to his recent acyclovir vs Zoster. Chest x-ray otherwise negative and the patient is afebrile. UA pending. Case was discussed with Martin Aragon, who will admit the patient for further management. Medication Reconcilliation Current Medication List: was personally reviewed by me Blood Pressure Screening Patient's blood pressure: Normal blood pressure Blood pressure disposition: Did not require urgent referral Consults Time Called: 2047 Consulting Physician: Martin Aragon Returned Call: 2049 I discussed the patient with him - He will evaluate the patient for further treatment. Impression Primary Impression: Hepatitis Additional Impression: Dehydration Scribe Attestation The scribe's documentation has been prepared under my direction and personally reviewed by me in its entirety. I confirm that the note above accurately reflects all work, treatment, procedures, and medical decision making performed by me. Departure Information Dispostion Being Evaluated By Hospitalist Referrals Malcolm Cruz M.D. (PCP) Patient Instructions My [facility] Problem Qualifiers
[2017-03-18 17:43] LABS: HEMATOCRIT 47.4 % (42-52); MEAN CELL VOLUME 93.5 fL (80-100); MEAN CORPUSCULAR HEMOGLOBIN 33.5 pg (25-34); MEAN CORPUSCULAR HGB CONC 35.9 g/dl (32-36); RED CELL DISTRIBUTION WIDTH CV 14.2 % (11.5-14.5); RED CELL DISTRIBUTION WIDTH SD 47.9 fL (36.4-46.3); WHITE BLOOD COUNT 19.06 K/uL (4.8-10.8)
[2017-03-18 18:02] LABS: ALBUMIN 2.9 gm/dl (3.4-5.0); CALCIUM 8.9 mg/dl (8.5-10.1); CREATININE 1.32 mg/dl (0.60-1.40); POTASSIUM 3.8 mmol/L (3.5-5.1)
[2017-03-18 18:07] LABS: TOTAL PROTEIN 6.4 gm/dl (6.4-8.2)
[2017-03-18] MEDS ORDERED: EMPA1TAB3 PO (18:10)
[2017-03-18] MEDS ORDERED: GLC/500 PO (18:10)
[2017-03-18 18:12] LABS: MEAN PLATELET VOLUME 11.4 fL (7.4-10.4); PLATELET COUNT 68 K/uL (130-400)
[2017-03-18 18:13] LABS: BASO % 0.1 %; BASO ABS # 0.02 K/uL (0-0.2); EOS % 0.2 %; EOS ABS # 0.03 K/uL (0-0.5); IG# 0.07 K/uL (0.00-0.02); LYMPH % 4.8 %; LYMPH ABS # 0.91 K/uL (1.2-3.4); MONO % 3.8 %; MONO ABS # 0.72 K/uL (0.11-0.59); NEUT % 90.7 %; NEUT ABS # 17.31 K/uL (1.4-6.5)
[2017-03-18 19:02] LABS: INFLUENZA B ANTIGEN Neg for Influ B (NEG)
--- NOTE | 2017-03-18 20:16 | DIAGNOSTIC IMAGING REPORT ---
CT SCAN OF THE ABDOMEN AND PELVIS WITHOUT CONTRAST CLINICAL HISTORY: Abdominal pain. Elevated LFTs. COMPARISON STUDY: No previous studies for comparison. TECHNIQUE: CT scan of the abdomen and pelvis was performed from the lung bases to the proximal femurs. Images are reviewed in the axial, sagittal, and coronal planes. IV contrast was not administered for this examination. A dose lowering technique was utilized adhering to the principles of ALARA. CT DOSE: 356.37 mGy.cm FINDINGS: Lower chest: The heart is mildly enlarged. There is bilateral lower lobe bronchial wall thickening and basilar atelectatic change. Trace effusions are suspected. Liver: The unenhanced liver is normal in size, contour, and attenuation. There is no intrahepatic biliary ductal dilatation. Gallbladder: Mildly distended. No calculi are visualized. Spleen: Normal in size and attenuation. Pancreas: Unremarkable. Adrenal glands: Unremarkable. Kidneys: No renal, ureteral, or bladder calculi are visualized. There is a 9.7 cm left renal cyst. Bowel: There is colonic diverticulosis. No acute peridiverticular inflammatory changes are visualized. The appendix appears normal. There is no evidence of bowel obstruction. There is no evidence of free air. Peritoneum: There is no intraperitoneal free air or abdominal ascites. Vasculature: The abdominal aorta is normal in course and caliber. Adenopathy: None. Pelvic viscera: Prostate patient therapy seeds are visualized. Skeletal structures: There is an old right inferior pubic ramus fracture. No lytic or suspicious blastic lesions are visualized. A right femoral head calcification while nonspecific likely represents a bone island. IMPRESSION: 1. Examination limited due to the lack of intravenous and oral contrast 2. No evidence of bowel obstruction. No evidence of free air 3. Diverticulosis. No evidence of acute diverticulitis 4. Normal appendix 5. 9.7 cm left renal cyst 6. Mild gallbladder distention. No calculi are visualized. No evidence of significant ductal dilatation. Electronically signed by: Kehinde Che M.D. 03/18/2017 8:15 PM Dictated Date/Time: 03/18/2017 8:09 PM
[2017-03-18] MEDS ORDERED: GLUCAGON FOR INJ 1 MG VIAL SQ PRN (21:45)
[2017-03-18] MEDS ORDERED: NITROGLYCERIN 0.4 MG SL PER TAB CHARGE SL PRN (21:45)
[2017-03-18] MEDS ORDERED: GLUCOSE 10 TABS/TUBE PO PRN (21:45)
[2017-03-18] MEDS ORDERED: DEXTROSE 50% 50 ML SYR IV PRN (21:45)
[2017-03-18] MEDS ORDERED: ONDANSETRON INJ 2 MG/ML 2 ML VIAL IV PRN (21:45)
[2017-03-18] MEDS ORDERED: GLUCOSE 40% GEL 15 GM TUBE PO PRN (21:45)
[2017-03-18] MEDS ORDERED: ALPRAZOLAM 0.5 MG TAB PO PRN (22:00)
[2017-03-18 22:24] LABS: PTT PATIENT 27.9 SECONDS (21.0-31.0)
--- NOTE | 2017-03-18 22:28 | History and Physical ---
History & Physical Date & Time of Service: Mar 18, 2017 at 21:52 Chief Complaint: Weakness From Shingles, Flu Like Sx- Referred Primary Care Physician: Malcolm Cruz M.D. History of Present Illness Source: patient, family, clinic records, hospital records Pt is 87 y/o M with PMH prostate CA s/p radiation, hypothyroidism, left renal cyst, DM II, anxiety presented to ER from PCP office with c/o generalized weakness. Pt states past week with intermittent nausea x 1 week, vomited last week, none since. Reports 3 BM's daily and one is loose. Intermittent red blood noted on toilet paper or stool over past couple of years and pt reports was dx with hemorrhoids in past. Denies any worsening or increased bleeding. Reports urine looking dark for past week. He denies any abdominal pain. Denies melena. States 4 days ago had shaking chills for one day. Did not take temperature at that time. Pt states decreased appetite and admits hasn't been eating or drinking much. Pt states 2 days ago coughed a couple of days and had voice hoarseness. that has since resolved. On 03/07/17 was seen at PCP office for a rash that he had for several days and dx with shingles and started on Valtrex. Reports taking first couple of days and then only took 1-2 pills a day for a couple of days as wondered if Valtrex was causing nausea. Denies hematochezia. Reports uses Tylenol rarely and denies recent use. Denies use of any other pain medications. Denies ETOH use or hx liver problems in past. Was started on Jardiance and Metformin in 12/18 for DM II. Denies other new medications or other supplements. Denies diaphoresis, VILLAREAL, dizziness, syncope, vision changes, CP, SOB, orthopnea, palpitations, sore throat, choking, otalgia, rhinorrhea, paresthesias, extremity edema, dysuria, urinary frequency or retention. In ER pt afebrile. BP: 88/56 to 108/63. R: 21, P: 53-61. 95% on RA. WBC: 19. Plt : 68. Na: 133. Cr: 1.3 (was 1 on 12/18). Gluc: 173, Total bilirubin: 4.6, direct bilirubin: 3.0, AST: 159, ALT: 409, Alk Phos: 542, Lipase: 886. (Pt had normal LFTs in 2017 on out pt records). negative rapid influenza. CT abd/pelvis : no bowel obstruction, diverticulosis, L renal cyst, mild gallbladder distension, no ductal dilation. Pending U/A. Pt given 2L NSS in ER. Past Medical/Surgical History Medical Problems: (1) Depression Status: Chronic (2) Prostate cancer Permanent Comment: Adenocarcinoma the prostate, presenting PSA 7.03 clinical stage T2b Biopsy stage T2c suppression Status post completion of radiation therapy to the pelvis completed 03/09/2008 received 5530 cGy Status post seed implant 03/30/2008 received 8500 cGy as boost Status: Resolved Family History Diabetes mellitus FH: CAD (coronary artery disease) FH: cancer of GI tract FH: prostate cancer Social History Smoking Status: Never Smoker Smokeless Tobacco Use: No Alcohol Use: none Drug Use: none Marital Status: Housing status: lives with significant other Immunizations History of Influenza Vaccine: No History of Tetanus Vaccine?: No History of Pneumococcal: No History of Hepatitis B Vaccine: No Multi-Drug Resistant Organisms History of MDRO: No Allergies Coded Allergies: Iodinated Diagnostic Agents (Verified Allergy, Unknown, ., 03/18/17) Iodine (Verified Allergy, Unknown, ALLERGY TO IVP DYE, 03/18/17) Home Medications Scheduled Empagliflozin (Jardiance), 25 MG PO HS Levothyroxine Sodium (Levothyroxine Sodium), 75 MCG PO DAILY Metformin Hcl (Glucophage), 500 MG PO QAM Tamsulosin Hcl (Flomax), 0.4 MG PO DAILY Scheduled PRN Acetaminophen (Tylenol), 1,000 MG PO Q6 PRN for Headache or Pain Alprazolam (Xanax), 0.5 MG PO HS PRN for Anxiety Review of Systems Constitutional: + chills, + weakness (see HPI), + fatigue, No weight loss Eyes: No worsening of vision, No eye pain, No redness ENT: No unusual epistaxis, No nasal symptoms, No sore throat, No trouble swallowing Respiratory: + cough (see HPI), No sputum, No wheezing, No shortness of breath , No dyspnea on exertion, No dyspnea at rest, No hemoptysis Cardiovascular: No chest pain, No orthopnea, No PND, No edema, No palpitations Abdomen: + problem reported (see HPI) Genitourinary - Male: + problem reported (see HPI) Neurologic: No paralysis, No numbness/tingling, No vertigo Endocrine: No excessive thirst, No excessive urination Hematologic / Lymphatic: No clotting problems, No night sweats Integumentary: + rash (see HPI) Physical Exam Vital Signs Date Time Temp Pulse Resp B/P (MAP) Pulse Ox O2 Delivery O2 Flow Rate FiO2 03/18/17 19:52 61 21 108/63 93 Room Air 03/18/17 19:30 64 21 94 03/18/17 19:00 62 21 96 03/18/17 17:21 74 03/18/17 17:12 Room Air 03/18/17 17:02 36.4 53 16 88/56 95 Room Air General Appearance: no apparent distress, + pertinent finding (mildly ill appearing) Head: normocephalic, atraumatic Eyes: normal inspection, PERRL, EOMI, sclerae normal ENT: pharynx normal, + pertinent finding (mucous membranes dry. hard of hearing ) Neck: supple, no JVD, trachea midline Respiratory/Chest: chest non-tender, lungs clear, normal breath sounds, no respiratory distress, no accessory muscle use Cardiovascular: regular rate, rhythm (rate 62), no edema, no murmur, normal peripheral pulses Abdomen/GI: normal bowel sounds, non tender, soft, + pertinent finding ( negative hernandez's sign) Back: no CVA tenderness Extremities/Musculoskelatal: normal inspection, no calf tenderness, normal capillary refill, no pedal edema, normal range of motion, non-tender Neurologic/Psych: alert, normal mood/affect, oriented x 3 Skin: normal color, warm/dry, + rash (multiple scabs on erythematous base to left lower abdomen, left flank and left lower back) Diagnostics Laboratory Results Last 24 Hours Test 03/18/17 17:31 03/18/17 21:17 03/18/17 21:46 White Blood Count 19.06 K/uL Red Blood Count 5.07 M/uL Hemoglobin 17.0 g/dL Hematocrit 47.4 % Mean Corpuscular Volume 93.5 fL Mean Corpuscular Hemoglobin 33.5 pg Mean Corpuscular Hemoglobin Concent 35.9 g/dl Platelet Count 68 K/uL Mean Platelet Volume 11.4 fL Neutrophils (%) (Auto) 90.7 % Lymphocytes (%) (Auto) 4.8 % Monocytes (%) (Auto) 3.8 % Eosinophils (%) (Auto) 0.2 % Basophils (%) (Auto) 0.1 % Neutrophils # (Auto) 17.31 K/uL Lymphocytes # (Auto) 0.91 K/uL Monocytes # (Auto) 0.72 K/uL Eosinophils # (Auto) 0.03 K/uL Basophils # (Auto) 0.02 K/uL RDW Standard Deviation 47.9 fL RDW Coefficient of Variation 14.2 % Immature Granulocyte % (Auto) 0.4 % Immature Granulocyte # (Auto) 0.07 K/uL Platelet Estimate DECREASED Spherocytes 1+ Sodium Level 133 mmol/L Potassium Level 3.8 mmol/L Chloride Level 100 mmol/L Carbon Dioxide Level 24 mmol/L Anion Gap 9.0 mmol/L Blood Urea Nitrogen 52 mg/dl Creatinine 1.32 mg/dl Est Creatinine Clear Calc Drug Dose 36.9 ml/min Estimated GFR () 56.6 Estimated GFR (Non- 48.8 BUN/Creatinine Ratio 39.6 Random Glucose 173 mg/dl Calcium Level 8.9 mg/dl Magnesium Level 2.6 mg/dl Total Bilirubin 4.6 mg/dl Direct Bilirubin 3.0 mg/dl Aspartate Amino Transf (AST/SGOT) 159 U/L Alanine Aminotransferase (ALT/SGPT) 409 U/L Alkaline Phosphatase 542 U/L Troponin I 0.019 ng/ml Total Protein 6.4 gm/dl Albumin 2.9 gm/dl Lipase 886 U/L Influenza Type A Antigen Neg for Influ A Influenza Type B Antigen Neg for Influ B Urine Color DK YELLOW Urine Appearance CLOUDY Urine pH 5.0 Urine Specific [place] 1.023 Urine Protein TRACE Urine Glucose (UA) 3+ Urine Ketones TRACE Urine Occult Blood 1+ Urine Nitrite POS Urine Bilirubin NEG Urine Urobilinogen NEG Urine Leukocyte Esterase MODERATE Diagnostic Radiology CXR: IMPRESSION: No active disease in the chest. CT ABD/PELVIS: IMPRESSION: 1. Examination limited due to the lack of intravenous and oral contrast 2. No evidence of bowel obstruction. No evidence of free air 3. Diverticulosis. No evidence of acute diverticulitis 4. Normal appendix 5. 9.7 cm left renal cyst 6. Mild gallbladder distention. No calculi are visualized. No evidence of significant ductal dilatation. EKG EKG: rate 72, sinus rhythm with PVCs, RBBB Impression Assessment and Plan TRANSAMINITIS Pt with hx intermittent nausea, weakness >1 week. Vomited last week, non-since. One loose BM daily. Denies abdominal pain. No abdominal pain on exam. WBC: 19. Plt: 68. Na: 133. Cr: 1.3 (was 1 on 12/18). Gluc: 173, Total bilirubin: 4.6, direct bilirubin: 3.0, AST: 159, ALT: 409, Alk Phos: 542, Lipase: 886. (Pt had normal LFTs in 2017 on out pt records). negative rapid influenza. CT abd/pelvis : no bowel obstruction, diverticulosis, L renal cyst, mild gallbladder distension, no ductal dilation. Pending U/A. -acetaminophen levels added. -hepatitis panel added -lactic acid added -co-ag labs added -hold on antibiotics at this time pending further labs and U/A -GI consult -CBC, Liver panel and metabolic panel, lipase in am DEHYDRATION/WEAKNESS Pt with poor oral intake. Suspect some weakness from dehydration Pt given 2L NSS in ER -NSS 100ml/hr JASON Cr: 1.3, was 1.0 on 12/18 -IVF -continue to monitor -avoid nephrotoxic agents when possible HYPONATREMIA Na: 133 -IVF -continue to monitor RECENT HERPES ZOSTER Pt dx on 03/07/17 by PCP after rash symptoms for couple days prior. Was started on Valtrex, however pt did not take entire course. Lesions crusted over at this time THROMBOCYTOPENIA Plt: 68 (was 183 on 12/18) -continue to monitor DM II HA1C was 10.4 in 12/18 and pt was started on metformin and Jardiance -HA1C for am -Hold home oral meds -NovoLog sliding scale per protocol HYPOTHYROIDISM TSH added -continue levothyroxine ANXIETY -xanax at HS prn anxiety DVT PROPHYLAXIS -SCDs with thrombocytopenia DISPOSITION -admit tele -Full Code as per discussion with pt -Follows with Dr Cruz for routine care Pt was seen with Dr Lan. See addendum Attending Physician, Dr. Lan addendum I have seen and examined the patient with HERNAN Canales and agree with the assessment and plan as above and would comment: This is an 87 year old M with resolving shingles who has been having generalized weakness and on labs found to have transaminases, elevated bilirubin , elevated alkaline phosphatase, thrombocytopenia, leukocytosis, acute kidney injury Imaging findings without acute findings of liver, biliary tract or gallbladder. There is: Mild gallbladder distention. No calculi are visualized. No evidence of significant ductal dilatation Diverticulosis. No evidence of acute diverticulitis 9.7 cm left renal cyst Prostate patient therapy seeds Patient is not toxic in appearance. Abdomen is soft and nontender with bowel sounds present. There are resolving crusted lesions of lower abdomen and lesions going across left flank to the left back. He is breathing on room air. Lungs are clear on exam. Heart rate is regular. EKG is sinus with previously known left axis deviation and right bundle branch block. However EKG with frequent PVCs. Will admit to telemetry because of the frequent PVCs, and give IV fluids while monitor lab abnormalities. Checking for hepatitis panel, anticoagulation labs, acetaminophen levels, salicylate levels, urinalysis, thyroid function panel. Gastroenterology service consulted for further evaluation of abnormal liver enzymes. Although there is leukocytosis, patient has been afebrile, will hold off on antibiotics to avoid further elevating the liver enzymes unless patient is febrile. Influenza negative. Will avoid potential hepatotoxic medications such as acetaminophen. Avoid nephrotoxic agents. Level of Care Telemetry Advanced Directives Existing Living Will: No Resuscitation Status FULL RESUSCITATION VTE Prophylaxis VTE Risk Assessment Done? Y/N: Yes Risk Level: Moderate Given or contraindicated: SCD's Additional Copies To Malcolm Cruz M.D.
[2017-03-18 22:50] LABS: CREATININE 0.9 mg/dl (0.60-1.40)
[2017-03-18 22:51] LABS: ALBUMIN 2.4 gm/dl (3.4-5.0); CALCIUM 8.2 mg/dl (8.5-10.1); POTASSIUM 3.5 mmol/L (3.5-5.1); TOTAL PROTEIN 5.7 gm/dl (6.4-8.2)
[2017-03-18 23:22] LABS: HEP C IGG 13 YRS+OLDER_RFLX NEG (NEG)
[2017-03-18] MEDS: SODIUM CHLORIDE 0.9% 1000ML 1,000 ML IV SCH (23:30)
[2017-03-19] VITALS (8 sets, daily range): BP systolic 100–121; BP diastolic 56–72; PULSE 51–64; TEMP 36.4–37; O2SAT 92–96; Ht 167.6 cm; Wt 73.5 kg
[2017-03-19] MEDS ORDERED: POTASSIUM CHLORIDE 20 MEQ TABCR PO STA (00:28)
[2017-03-19] MEDS: LEVOTHYROXINE 75 MCG TAB PO SCH (05:47)
[2017-03-19 06:05] LABS: HEMATOCRIT 42.3 % (42-52); HEMOGLOBIN 14.9 g/dL (14.0-18.0); MEAN CELL VOLUME 93.4 fL (80-100); MEAN CORPUSCULAR HEMOGLOBIN 32.9 pg (25-34); MEAN CORPUSCULAR HGB CONC 35.2 g/dl (32-36); MEAN PLATELET VOLUME 12.2 fL (7.4-10.4); PLATELET COUNT 64 K/uL (130-400); RED CELL DISTRIBUTION WIDTH SD 47.3 fL (36.4-46.3); WHITE BLOOD COUNT 12.79 K/uL (4.8-10.8)
[2017-03-19 06:23] LABS: BASO % 0.2 %; BASO ABS # 0.02 K/uL (0-0.2); EOS % 0.4 %; EOS ABS # 0.05 K/uL (0-0.5); IG# 0.05 K/uL (0.00-0.02); LYMPH % 5.2 %; LYMPH ABS # 0.66 K/uL (1.2-3.4); MONO ABS # 0.64 K/uL (0.11-0.59); NEUT % 88.8 %; NEUT ABS # 11.37 K/uL (1.4-6.5)
[2017-03-19 06:32] LABS: ALBUMIN 2.2 gm/dl (3.4-5.0); CALCIUM 7.7 mg/dl (8.5-10.1); CREATININE 0.74 mg/dl (0.60-1.40)
[2017-03-19] MEDS: INSULIN ASPART 100 UNITS/ML 3 ML PEN SC SCH ×5 (07:00→21:19)
[2017-03-19 07:01] LABS: HEMOGLOBIN A1C 7.1 % (4.5-5.6)
--- NOTE | 2017-03-19 07:41 | Clinical Documentation Query ---
CLINICAL DOCUMENTATION QUERY 87 year old male who presents to the Emergency Room with complaints of persistent weakness and elevated liver panel. In your clinical opinion is this patient being managed for: ( ) Acute hepatitis in setting of herpes zoster and/or recent Acyclovir therapy. ( ) Not Agree ( ) Other explanation of clinical findings (Please Explain) ( ) Unable to determine (Please Define) ( ) Need to Discuss The medical record reflects the following clinical findings, treatment, and risk factors. Clinical Indicators: Total Bili 4.6, Direct Bili 3.0, AST 159, ALT 409, Alk phos 542, Albumin 2.9, Treatment: GI consult, IVF's, Risk Factors: Age, Herpes Zoster, dehydration, Acyclovir therapy Please clarify and document your clinical opinion in the progress notes and discharge summary. Terms such as "probable", "suspected", "likely", "questionable", "possible", or "still to be ruled out" are acceptable. IF IN AGREEMENT, YOU MUST DOCUMENT ABOVE DIAGNOSTIC STATEMENT IN DAILY PROGRESS NOTES AND DISCHARGE SUMMARY. This document is not part of the patient's record. Thank You, Suraj Whitley, RIGOBERTO [phone]
[2017-03-19] MEDS ORDERED: PNEUMOCOCCAL POLYSACCHARIDES 25 MCG/0.5 ML VIAL/SYR IM. ONE (08:00)
[2017-03-19] MEDS ORDERED: PNEUMOCOCCAL ADMINISTRATION CHARGE ONE (08:00)
[2017-03-19] MEDS: SODIUM CHLORIDE 0.9% 1000ML 1,000 ML IV SCH ×2 (09:21→23:52)
[2017-03-19] MEDS: TAMSULOSIN HCL 0.4 MG CAP PO SCH (09:21)
--- NOTE | 2017-03-19 10:06 | Gastrointestinal Consultation ---
Gastrointestinal Consultation Date of Consultation: Mar 19, 2017 Attending Physician: Tristin Consulting Physician: Eros Reason for Consultation: transaminitis History of Present Illness Patient is a 87 year old male w/ history of prostate CA s/p radiation s/p radiation and others listed below who presented through the ED from his PCP office for evaluation of weakness. Pt was seen and evaluated, chart reviewed. Pt tells me about two weeks ago developed a painful, itchy rash on his left lower abdomen. Went to see his PCP who diagnosed as shingles, started valacyclovir and oxycodone. He tells me he did not take the narcotics. Within a few doses, noted slight improvement of his rash but new GI symptoms and weakness. Reported nausea, vomiting and loose stools. He tells me went to see his PCP again who was concerned about dehydration and he was sent to the ED. Today, he notes he feels better. He is no longer having abdominal pain, nausea, vomiting and diarrhea. He tells me his last BM was yesterday, no black or bloody stool. No hugh colored stools His only complaint today as that he remains weak. Tells me his urine was dark last week, but now it is becoming more light. Pt is afebrile, BP improved to systolics 100's, pulse 70's. WBC: 13. Plt: 64. BUN 35 Cr: 0.7 TB: 3.6, direct bilirubin: 2.4, AST: 99, ALT: 271 Alk Phos: 405, Lipase: 745. ETOH: none Tylenol: two-three tablets twice a week Supplements: none History of liver disease: none Family history of liver disease: none CT ABD/Pelvis: Examination limited due to the lack of intravenous and oral contrast No evidence of bowel obstruction. No evidence of free airDiverticulosis. No evidence of acute diverticulitis Normal appendix 9.7 cm left renal cyst Mild gallbladder distention. No calculi are visualized. No evidence of significant ductal dilatation. Past Medical/Surgical History Medical Problems: (1) Dehydration Status: Acute (2) Hepatitis Status: Acute (3) Subdural bleeding Status: Acute Past Medical History: T2DM, depression, anxiety, hypothyroidism, left renal cyst, prostate CA Past Surgical History: Colonoscopy Family History Diabetes mellitus FH: CAD (coronary artery disease) FH: cancer of GI tract FH: prostate cancer Social History Smoking Status: Never Smoker Alcohol Use: none Drug Use: none Marital Status: Allergies Coded Allergies: Iodinated Diagnostic Agents (Verified Allergy, Unknown, ., 03/18/17) Iodine (Verified Allergy, Unknown, ALLERGY TO IVP DYE, 03/18/17) Current Medications Home Meds and Scripts Medications Dose Route/Sig Max Daily Dose Days Date Category Glucophage (Metformin Hcl) 500 Mg Tab 500 Mg PO QAM 03/18/17 Reported Jardiance (Empagliflozin) 25 Mg Tab 25 Mg PO HS 03/18/17 Reported Tylenol (Acetaminophen) 500 Mg Tab 1,000 Mg PO Q6 PRN 12/19/16 Reported Flomax (Tamsulosin Hcl) 0.4 Mg Cap 0.4 Mg PO DAILY 09/22/16 Reported Levothyroxine Sodium 75 Mcg Tab 75 Mcg PO DAILY 09/22/16 Reported Xanax (Alprazolam) 0.5 Mg Tab 0.5 Mg PO HS PRN 08/26/07 Reported Review of Systems Constitutional: + weakness, No fever, No chills Respiratory: No cough, No shortness of breath Cardiac: No chest pain, No edema Abdomen: No pain, No nausea, No vomiting, No diarrhea, No constipation, No GI bleeding Physical Exam Date Time Temp Pulse Resp B/P (MAP) Pulse Ox O2 Delivery O2 Flow Rate FiO2 03/19/17 07:36 36.4 61 21 102/63 (76) 96 Room Air 03/19/17 04:00 Room Air 03/19/17 03:15 37.0 57 17 100/56 (71) 92 Room Air 03/19/17 02:28 36.5 60 16 116/67 92 Room Air 03/18/17 22:27 36.4 61 21 108/63 93 03/18/17 19:52 61 21 108/63 93 Room Air 03/18/17 19:30 64 21 94 03/18/17 19:00 62 21 96 03/18/17 17:21 74 03/18/17 17:12 Room Air 03/18/17 17:02 36.4 53 16 88/56 95 Room Air General Appearance: + pertinent finding (ill appearing) Eyes: + pertinent finding (mild scleral icterus) Neck: supple Respiratory/Chest: lungs clear Cardiovascular: regular rate, rhythm Abdomen: normal bowel sounds, non tender, soft, no organomegaly, no pulsatile mass, + pertinent finding (scabs w/ erythematous base to left lower abdomen) Neurologic/Psych: alert, normal mood/affect, oriented x 3 Skin: normal color, warm/dry, no rash Laboratory Results Last 24 Hours Test 03/18/17 17:31 03/18/17 21:17 03/18/17 21:46 03/19/17 05:42 White Blood Count 19.06 K/uL 12.79 K/uL Red Blood Count 5.07 M/uL 4.53 M/uL Hemoglobin 17.0 g/dL 14.9 g/dL Hematocrit 47.4 % 42.3 % Mean Corpuscular Volume 93.5 fL 93.4 fL Mean Corpuscular Hemoglobin 33.5 pg 32.9 pg Mean Corpuscular Hemoglobin Concent 35.9 g/dl 35.2 g/dl Platelet Count 68 K/uL 64 K/uL Mean Platelet Volume 11.4 fL 12.2 fL Neutrophils (%) (Auto) 90.7 % 88.8 % Lymphocytes (%) (Auto) 4.8 % 5.2 % Monocytes (%) (Auto) 3.8 % 5.0 % Eosinophils (%) (Auto) 0.2 % 0.4 % Basophils (%) (Auto) 0.1 % 0.2 % Neutrophils # (Auto) 17.31 K/uL 11.37 K/uL Lymphocytes # (Auto) 0.91 K/uL 0.66 K/uL Monocytes # (Auto) 0.72 K/uL 0.64 K/uL Eosinophils # (Auto) 0.03 K/uL 0.05 K/uL Basophils # (Auto) 0.02 K/uL 0.02 K/uL RDW Standard Deviation 47.9 fL 47.3 fL RDW Coefficient of Variation 14.2 % 14.0 % Immature Granulocyte % (Auto) 0.4 % 0.4 % Immature Granulocyte # (Auto) 0.07 K/uL 0.05 K/uL Platelet Estimate DECREASED Spherocytes 1+ Sodium Level 133 mmol/L 137 mmol/L 137 mmol/L Potassium Level 3.8 mmol/L 3.5 mmol/L 4.0 mmol/L Chloride Level 100 mmol/L 105 mmol/L 108 mmol/L Carbon Dioxide Level 24 mmol/L 21 mmol/L 23 mmol/L Anion Gap 9.0 mmol/L 11.0 mmol/L 6.0 mmol/L Blood Urea Nitrogen 52 mg/dl 42 mg/dl 35 mg/dl Creatinine 1.32 mg/dl 0.90 mg/dl 0.74 mg/dl Est Creatinine Clear Calc Drug Dose 36.9 ml/min 54.1 ml/min 65.8 ml/min Estimated GFR () 56.6 89.9 97.5 Estimated GFR (Non- 48.8 77.6 84.1 BUN/Creatinine Ratio 39.6 47.3 47.3 Random Glucose 173 mg/dl 131 mg/dl 119 mg/dl Calcium Level 8.9 mg/dl 8.2 mg/dl 7.7 mg/dl Magnesium Level 2.6 mg/dl Total Bilirubin 4.6 mg/dl 3.8 mg/dl 3.6 mg/dl Direct Bilirubin 3.0 mg/dl 2.4 mg/dl Aspartate Amino Transf (AST/SGOT) 159 U/L 125 U/L 99 U/L Alanine Aminotransferase (ALT/SGPT) 409 U/L 333 U/L 271 U/L Alkaline Phosphatase 542 U/L 436 U/L 405 U/L Troponin I 0.019 ng/ml Total Protein 6.4 gm/dl 5.7 gm/dl 5.0 gm/dl Albumin 2.9 gm/dl 2.4 gm/dl 2.2 gm/dl Lipase 886 U/L 745 U/L Influenza Type A Antigen Neg for Influ A Influenza Type B Antigen Neg for Influ B Urine Color DK YELLOW Urine Appearance CLOUDY Urine pH 5.0 Urine Specific [place] 1.023 Urine Protein TRACE Urine Glucose (UA) 3+ Urine Ketones TRACE Urine Occult Blood 1+ Urine Nitrite POS Urine Bilirubin NEG Urine Urobilinogen NEG Urine Leukocyte Esterase MODERATE Urine WBC (Auto) >30 /hpf Urine RBC (Auto) 0-4 /hpf Urine Hyaline Casts (Auto) 1-5 /lpf Urine Epithelial Cells (Auto) 0-5 /lpf Urine Bacteria (Auto) 4+ Urine Pathogenic Casts 1-5 GRANULAR CASTS /lpf Urine Sperm (Auto) Prothrombin Time 10.6 SECONDS Prothromb Time International Ratio 1.0 Activated Partial Thromboplast Time 27.9 SECONDS Partial Thromboplastin Ratio 1.1 Lactic Acid Level 1.5 mmol/L Globulin 3.3 gm/dl 2.8 gm/dl Albumin/Globulin Ratio 0.7 0.8 Thyroid Stimulating Hormone (TSH) 4.920 uIu/ml Hepatitis B Surface Antigen NEG Hepatitis B Surface Antibody NEG Hepatitis C Antibody NEG Estimated Average Glucose 157 mg/dl Hemoglobin A1c 7.1 % Impression Patient is a 87 year old male w/ history of shingles on valtrex who developed weakness, nausea, vomiting, diarrhea, now resolved who was admitted from PCP office for evaluation of weakness. GI was asked to evaluate the pt given new onset transaminitis. Differentials: Ischemic vs infectious vs biliary vs DILI Plan - RUQ US for evaluation of CBD - MRCP pending results of RUQ US - Daily CMP - Serology - HOLLEY, AMA, ASMA, SPEP, Ceruloplasmin, Alpha-1, Iron panel w/ ferritin, acute hepatitis, CMV, EBV, HSV, Celiac, Tylenol level - IVF hydration - Anti-emetics PRN - Continue symptomatic management GI to follow, please call with any questions or concerns Attg add: I interviewed and examined pt, reviewed chart and labs. Pt with 1 week of nausea, dark urine. Of note, had shingles in lower abdomen treated with Valtrex 2 weeks ago. Labs suggestive of choloedocholithiasis. Will request MRCP.
[2017-03-19] MEDS: CEFTRIAXONE SOD INJ 1 GM in DEXTROSE 5% ADD-VANTAGE 50ML 50 ML IV SCH (10:36)
--- NOTE | 2017-03-19 12:06 | Progress Note ---
Medicine Progress Note Date & Time of Visit: Mar 19, 2017 at 11:45. Subjective Pt was seen and examined Lying in bed with no distress Pt said that he feels weak He said that he does not have any abdominal pain, nausea and vomiting He said that he is hungry Denies any chest pain, palpitation, dizziness and SOB Objective Last 8 Hrs Date Time Temp Pulse Resp B/P (MAP) Pulse Ox O2 Delivery O2 Flow Rate FiO2 03/19/17 08:00 Room Air 03/19/17 07:36 36.4 61 21 102/63 (76) 96 Room Air 03/19/17 04:00 Room Air Physical Exam: General- no acute distress Head- atraumatic Eyes- PERRL, EOMI ENT- oropharynx clear Neck- supple, no JVD Lungs- clear to auscultation Heart- regular rhythm Abdomen- normal bowel sounds, soft Extremities-no calf tenderness Neuro- alert, oriented x 3; PERRL, EOMI Skin- warm & dry Laboratory Results: Last 24 Hours Test 03/18/17 17:31 03/18/17 21:17 03/18/17 21:46 03/19/17 05:42 White Blood Count 19.06 K/uL 12.79 K/uL Red Blood Count 5.07 M/uL 4.53 M/uL Hemoglobin 17.0 g/dL 14.9 g/dL Hematocrit 47.4 % 42.3 % Mean Corpuscular Volume 93.5 fL 93.4 fL Mean Corpuscular Hemoglobin 33.5 pg 32.9 pg Mean Corpuscular Hemoglobin Concent 35.9 g/dl 35.2 g/dl Platelet Count 68 K/uL 64 K/uL Mean Platelet Volume 11.4 fL 12.2 fL Neutrophils (%) (Auto) 90.7 % 88.8 % Lymphocytes (%) (Auto) 4.8 % 5.2 % Monocytes (%) (Auto) 3.8 % 5.0 % Eosinophils (%) (Auto) 0.2 % 0.4 % Basophils (%) (Auto) 0.1 % 0.2 % Neutrophils # (Auto) 17.31 K/uL 11.37 K/uL Lymphocytes # (Auto) 0.91 K/uL 0.66 K/uL Monocytes # (Auto) 0.72 K/uL 0.64 K/uL Eosinophils # (Auto) 0.03 K/uL 0.05 K/uL Basophils # (Auto) 0.02 K/uL 0.02 K/uL RDW Standard Deviation 47.9 fL 47.3 fL RDW Coefficient of Variation 14.2 % 14.0 % Immature Granulocyte % (Auto) 0.4 % 0.4 % Immature Granulocyte # (Auto) 0.07 K/uL 0.05 K/uL Platelet Estimate DECREASED Spherocytes 1+ Sodium Level 133 mmol/L 137 mmol/L 137 mmol/L Potassium Level 3.8 mmol/L 3.5 mmol/L 4.0 mmol/L Chloride Level 100 mmol/L 105 mmol/L 108 mmol/L Carbon Dioxide Level 24 mmol/L 21 mmol/L 23 mmol/L Anion Gap 9.0 mmol/L 11.0 mmol/L 6.0 mmol/L Blood Urea Nitrogen 52 mg/dl 42 mg/dl 35 mg/dl Creatinine 1.32 mg/dl 0.90 mg/dl 0.74 mg/dl Est Creatinine Clear Calc Drug Dose 36.9 ml/min 54.1 ml/min 65.8 ml/min Estimated GFR () 56.6 89.9 97.5 Estimated GFR (Non- 48.8 77.6 84.1 BUN/Creatinine Ratio 39.6 47.3 47.3 Random Glucose 173 mg/dl 131 mg/dl 119 mg/dl Calcium Level 8.9 mg/dl 8.2 mg/dl 7.7 mg/dl Magnesium Level 2.6 mg/dl Total Bilirubin 4.6 mg/dl 3.8 mg/dl 3.6 mg/dl Direct Bilirubin 3.0 mg/dl 2.4 mg/dl Aspartate Amino Transf (AST/SGOT) 159 U/L 125 U/L 99 U/L Alanine Aminotransferase (ALT/SGPT) 409 U/L 333 U/L 271 U/L Alkaline Phosphatase 542 U/L 436 U/L 405 U/L Troponin I 0.019 ng/ml Total Protein 6.4 gm/dl 5.7 gm/dl 5.0 gm/dl Albumin 2.9 gm/dl 2.4 gm/dl 2.2 gm/dl Lipase 886 U/L 745 U/L Influenza Type A Antigen Neg for Influ A Influenza Type B Antigen Neg for Influ B Urine Color DK YELLOW Urine Appearance CLOUDY Urine pH 5.0 Urine Specific Bishop 1.023 Urine Protein TRACE Urine Glucose (UA) 3+ Urine Ketones TRACE Urine Occult Blood 1+ Urine Nitrite POS Urine Bilirubin NEG Urine Urobilinogen NEG Urine Leukocyte Esterase MODERATE Urine WBC (Auto) >30 /hpf Urine RBC (Auto) 0-4 /hpf Urine Hyaline Casts (Auto) 1-5 /lpf Urine Epithelial Cells (Auto) 0-5 /lpf Urine Bacteria (Auto) 4+ Urine Pathogenic Casts 1-5 GRANULAR CASTS /lpf Urine Sperm (Auto) Prothrombin Time 10.6 SECONDS Prothromb Time International Ratio 1.0 Activated Partial Thromboplast Time 27.9 SECONDS Partial Thromboplastin Ratio 1.1 Lactic Acid Level 1.5 mmol/L Globulin 3.3 gm/dl 2.8 gm/dl Albumin/Globulin Ratio 0.7 0.8 Thyroid Stimulating Hormone (TSH) 4.920 uIu/ml Hepatitis B Surface Antigen NEG Hepatitis B Surface Antibody NEG Hepatitis C Antibody NEG Estimated Average Glucose 157 mg/dl Hemoglobin A1c 7.1 % Thyroxine (T4) 2.6 mcg/dl Date/Time Source Procedure Growth Status 03/18/17 21:46 Blood Blood Culture - Preliminary Gram Negative Bacilli Resulted 03/18/17 21:40 Blood Blood Culture Pending Received 03/18/17 21:17 Urine , Clean Catch Urine Culture - Preliminary Gram Negative Bacilli Resulted Assessment & Plan Generalized Weakness Possible related to acute bacteria infection and dehydration UA positive of UTI and urine cx growth gram negative bacilli blood cx growth gram negative bacilli WBC mildly elevated and afebrile Starting on Rocephin IV daily PT/OT eval TRANSAMINITIS Possible related to acute illness vs drug related AST/ALT on admission 159/409 respectively LFT trending down Hepatitis marker negative CT abd/pelvis showed mild gallbladder distention.No evidence of significant ductal dilatation. Diverticulosis. No evidence of acute diverticulitis Denies any abdominal pain GI on board HOLLEY, AMA, ASMA, SPEP, Ceruloplasmin, Alpha-1, Iron panel w/ ferritin, CMV, EBV , HSV, Celiac, Tylenol level pending Continue IVF Liver u/s pending will start on clear liquid diet Monitor liver enzymes Elevated Lipase Lipase on admission above 800 Lipase trending down Continue IVF JASON Creatine improved 0.7 Avoid nephrotoxic agents when possible On IVF HYPONATREMIA Na on admission 133 Na improved to 137 On IVF RECENT HERPES ZOSTER Pt dx on 03/07/17 by PCP after rash symptoms for couple days prior. Was started on Valtrex, however pt did not take entire course. Lesions crusted over at this time THROMBOCYTOPENIA Plt 64 today No sign of bleeding continue to monitor DM II Hba1c today 7.1 Hold home oral meds NovoLog sliding scale per protocol HYPOTHYROIDISM Continue levothyroxine ANXIETY xanax at HS prn anxiety DVT PROPHYLAXIS SCDs due to thrombocytopenia CODE STATUS FULL CODE Consultants: GASTRO Current Inpatient Medications: Current Inpatient Medications Medications (Trade) Dose Ordered Sig/Edilma Route Start Time Stop Time Status Last Admin Dose Admin Ondansetron HCl (Zofran Inj) 4 mg Q6H PRN IV 03/18/17 21:45 04/17/17 21:44 Nitroglycerin (Nitrostat Tab) 0.4 mg UD PRN SL 03/18/17 21:45 04/17/17 21:44 Sodium Chloride 1,000 ml @ 100 mls/hr Q10H IV 03/18/17 23:00 04/17/17 22:59 03/19/17 09:21 100 MLS/HR Insulin Aspart (novoLOG ASPART) SLIDING SCALE If C... ACHS SC 03/19/17 07:00 04/18/17 06:59 Glucose (Glucose 40% Gel) 15-30 GRAMS 15 GRAMS... UD PRN PO 03/18/17 21:45 04/17/17 21:44 Glucose (Glucose Chew Tab) 4-8 Tablets 4 Tabl... UD PRN PO 03/18/17 21:45 04/17/17 21:44 Dextrose (Dextrose 50% 50ML Syringe) 25-50ML OF 50% DW IV FOR... UD PRN IV 03/18/17 21:45 04/17/17 21:44 Glucagon (Glucagon Inj) 1 mg UD PRN SQ 03/18/17 21:45 04/17/17 21:44 Alprazolam (Xanax Tab) 0.5 mg HS PRN PO 03/18/17 22:00 04/17/17 21:59 Levothyroxine Sodium (Synthroid Tab) 75 mcg DAILYBB PO 03/19/17 06:00 04/18/17 06:59 03/19/17 05:47 75 MCG Tamsulosin HCl (Flomax Cap) 0.4 mg DAILY PO 03/19/17 09:00 04/18/17 08:59 03/19/17 09:21 0.4 MG Ceftriaxone Sodium 1 gm/ Dextrose 50 ml @ 100 mls/hr Q24H IV 03/19/17 10:00 03/24/17 09:29 03/19/17 10:36 100 MLS/HR
--- NOTE | 2017-03-19 14:43 | DIAGNOSTIC IMAGING REPORT ---
DUPLEX PORTAL HEPATIC VEINS CLINICAL HISTORY: elevated LFTs COMPARISON STUDY: Abdomen and pelvis CT 03/18/2017. FINDINGS: The hepatic and portal veins are patent and demonstrate normal direction of flow. The IVC is also patent. Hepatic arteries show no significant stenosis. IMPRESSION: The hepatic and portal veins are patent. Electronically signed by: Amador Tuttle M.D. 03/19/2017 2:41 PM Dictated Date/Time: 03/19/2017 2:40 PM
--- NOTE | 2017-03-19 14:45 | DIAGNOSTIC IMAGING REPORT ---
ABDOMINAL ULTRASOUND, RIGHT UPPER QUADRANT HISTORY: elevated LFTs, nausea, vomiting, eval CBD. COMPARISON: Abdomen and pelvis CT 03/18/2017. FINDINGS: Pancreas: The pancreatic head and tail are obscured by overlying bowel gas. The remaining portions of the pancreas are within normal limits. Liver: A 1.2 cm cyst within the right hepatic lobe. No solid hepatic masses. Gallbladder: No gallbladder wall thickening. No gallstones. CBD: 4 mm. Right kidney: No hydronephrosis. IMPRESSION: 1. The gallbladder is within normal limits. No gallstones. 2. A 1.2 cm right hepatic cyst. Electronically signed by: Amador Tuttle M.D. 03/19/2017 2:44 PM Dictated Date/Time: 03/19/2017 2:42 PM
--- NOTE | 2017-03-19 20:37 | DIAGNOSTIC IMAGING REPORT ---
MRCP CLINICAL HISTORY: elevated LFTs, rule out CBD obstruction abnormal liver enzymes TECHNIQUE: Multi axial MRI acquisition COMPARISON STUDY: Right upper quadrant 03/19/2017. CT abdomen and pelvis 03/18/2017 FINDINGS: Bilateral renal cysts unchanged from the prior studies. Largest is at the lower pole left kidney measuring 8.5 cm. 1.5 cm right hepatic lobe cyst. Liver is otherwise uniform. Diverticulum descending component of the duodenal sweep. No significant upper abdominal adenopathy. Potential small filling defect distal common duct at the sphincter. Pancreatic duct is unremarkable. No significant distention of the biliary ductal system with maximum diameter of the common duct 4.8 mm. Pancreas appears to be uniform. Hepatic and portal venous structures are unremarkable. The bowel pattern is nonobstructive. Bibasilar atelectasis with lungs. IMPRESSION: 1. Hepatic and renal cysts which have been described previously. 2. Bibasilar atelectasis. 3. Uniform unremarkablepancreas. 4. Potential filling defect versus polyp distal common bile duct at and are medially proximal to the sphincter. ERCP is suggested as follow-up. The above report was generated using voice recognition software. It may contain grammatical, syntax or spelling errors. Electronically signed by: Malcolm Mckeon M.D. 03/19/2017 8:36 PM Dictated Date/Time: 03/19/2017 8:32 PM
[2017-03-20 00:18] VITALS: O2SAT 94
[2017-03-20 02:45] LABS: HEPATITIS A IGM TC 51813E NON-REACTIVE (NON-REACTIVE); HEPATITIS B CORE IGM TC51854R NON-REACTIVE (NON-REACTIVE)
[2017-03-20] MEDS: LEVOTHYROXINE 75 MCG TAB PO SCH (05:51)
[2017-03-20 08:05] VITALS: BP 124/75; PULSE 55; TEMP 36.8; O2SAT 93
[2017-03-20 08:14] LABS: ALBUMIN 2.2 gm/dl (3.4-5.0); CALCIUM 7.8 mg/dl (8.5-10.1); CREATININE 0.49 mg/dl (0.60-1.40); POTASSIUM 3.7 mmol/L (3.5-5.1); TOTAL PROTEIN 5.1 gm/dl (6.4-8.2)
[2017-03-20 08:24] LABS: HEMATOCRIT 42.5 % (42-52); HEMOGLOBIN 14.6 g/dL (14.0-18.0); MEAN CELL VOLUME 95.3 fL (80-100); MEAN CORPUSCULAR HEMOGLOBIN 32.7 pg (25-34); MEAN CORPUSCULAR HGB CONC 34.4 g/dl (32-36); MEAN PLATELET VOLUME 12.2 fL (7.4-10.4); PLATELET COUNT 62 K/uL (130-400); RED CELL DISTRIBUTION WIDTH CV 14.4 % (11.5-14.5); RED CELL DISTRIBUTION WIDTH SD 49.6 fL (36.4-46.3); WHITE BLOOD COUNT 8.23 K/uL (4.8-10.8)
[2017-03-20] MEDS: TAMSULOSIN HCL 0.4 MG CAP PO SCH (09:02)
[2017-03-20] MEDS: INSULIN ASPART 100 UNITS/ML 3 ML PEN SC SCH ×4 (09:06→20:38)
--- NOTE | 2017-03-20 09:12 | Gastroenterology Progress Note ---
Progress Note Date of Service: Mar 20, 2017 Subjective Pt evaluation today including: conversation w/ patient, physical exam, chart review, lab review Pt was seen and examined, chart reviewed. Pt notes he symptomatically continues to improve. Denies nausea, vomiting, abd pain. He feels less weak, but still not back to baseline. Had full liquids this AM. MRCP concerning for CBD filling defect. AM labs pending. ETOH: none Tylenol: two-three tablets twice a week Supplements: none History of liver disease: none Family history of liver disease: none CT ABD/Pelvis: Examination limited due to the lack of intravenous and oral contrast No evidence of bowel obstruction. No evidence of free airDiverticulosis. No evidence of acute diverticulitis Normal appendix 9.7 cm left renal cyst Mild gallbladder distention. No calculi are visualized. No evidence of significant ductal dilatation. MRCP: Hepatic and renal cysts which have been described previously. Bibasilar atelectasis. Uniform unremarkablepancreas. Potential filling defect versus polyp distal common bile duct at and are medially proximal to the sphincter. ERCP is suggested as follow-up. RUQ US: The gallbladder is within normal limits. No gallstones. A 1.2 cm right hepatic cyst. Duplex: The hepatic and portal veins are patent. Review of Systems Constitutional: + weakness, No fever, No chills Respiratory: No cough, No shortness of breath Cardiac: No chest pain, No edema Abdomen: No pain, No nausea, No vomiting, No diarrhea, No constipation Medications Current Inpatient Medications Medications (Trade) Dose Ordered Sig/Edilma Route Start Time Stop Time Status Last Admin Dose Admin Ondansetron HCl (Zofran Inj) 4 mg Q6H PRN IV 03/18/17 21:45 04/17/17 21:44 Nitroglycerin (Nitrostat Tab) 0.4 mg UD PRN SL 03/18/17 21:45 04/17/17 21:44 Sodium Chloride 1,000 ml @ 70 mls/hr [id number] IV 03/18/17 23:00 04/17/17 22:59 03/19/17 23:52 70 MLS/HR Insulin Aspart (novoLOG ASPART) SLIDING SCALE If C... ACHS SC 03/19/17 07:00 04/18/17 06:59 03/19/17 21:19 1 UNITS Glucose (Glucose 40% Gel) 15-30 GRAMS 15 GRAMS... UD PRN PO 03/18/17 21:45 04/17/17 21:44 Glucose (Glucose Chew Tab) 4-8 Tablets 4 Tabl... UD PRN PO 03/18/17 21:45 04/17/17 21:44 Dextrose (Dextrose 50% 50ML Syringe) 25-50ML OF 50% DW IV FOR... UD PRN IV 03/18/17 21:45 04/17/17 21:44 Glucagon (Glucagon Inj) 1 mg UD PRN SQ 03/18/17 21:45 04/17/17 21:44 Alprazolam (Xanax Tab) 0.5 mg HS PRN PO 03/18/17 22:00 04/17/17 21:59 Levothyroxine Sodium (Synthroid Tab) 75 mcg DAILYBB PO 03/19/17 06:00 04/18/17 06:59 03/20/17 05:51 75 MCG Tamsulosin HCl (Flomax Cap) 0.4 mg DAILY PO 03/19/17 09:00 04/18/17 08:59 03/19/17 09:21 0.4 MG Ceftriaxone Sodium 1 gm/ Dextrose 50 ml @ 100 mls/hr Q24H IV 03/19/17 10:00 03/24/17 09:29 03/19/17 10:36 100 MLS/HR Objective Vital Signs Date Time Temp Pulse Resp B/P (MAP) Pulse Ox O2 Delivery O2 Flow Rate FiO2 03/20/17 08:05 36.8 55 18 124/75 (91) 93 Room Air 03/20/17 07:40 Room Air 03/20/17 00:18 94 Room Air 03/19/17 23:56 36.5 58 16 121/72 (88) 95 Room Air 03/19/17 16:00 Room Air 03/19/17 16:00 36.9 51 16 105/65 (78) 94 Room Air 03/19/17 15:48 36.7 57 20 94 03/19/17 15:25 57 94 03/19/17 13:10 Room Air 03/19/17 12:44 36.7 64 20 104/61 (75) 95 Physical Exam General Appearance: no apparent distress Eyes: PERRL ENT: hearing grossly normal Neck: supple Respiratory/Chest: lungs clear, normal breath sounds Cardiovascular: regular rate, rhythm Abdomen: normal bowel sounds, non tender, soft, no organomegaly Neurologic/Psych: alert, normal mood/affect, oriented x 3 Skin: normal color Laboratory Results Last 24 Hours Test 03/19/17 11:32 03/19/17 16:21 03/19/17 20:27 03/20/17 07:28 Bedside Glucose 140 mg/dl 176 mg/dl 134 mg/dl Sodium Level 139 mmol/L Potassium Level 3.7 mmol/L Chloride Level 108 mmol/L Carbon Dioxide Level 23 mmol/L Anion Gap 8.0 mmol/L Blood Urea Nitrogen 20 mg/dl Creatinine 0.49 mg/dl Est Creatinine Clear Calc Drug Dose 99.4 ml/min Estimated GFR () 115.5 Estimated GFR (Non- 99.6 BUN/Creatinine Ratio 41.3 Random Glucose 124 mg/dl Calcium Level 7.8 mg/dl Iron Level 74 mcg/dl Total Iron Binding Capacity 202 mcg/dl Ferritin 211.4 ng/ml Total Bilirubin 2.9 mg/dl Aspartate Amino Transf (AST/SGOT) 83 U/L Alanine Aminotransferase (ALT/SGPT) 203 U/L Alkaline Phosphatase 409 U/L Total Protein 5.1 gm/dl Albumin 2.2 gm/dl Globulin 2.9 gm/dl Albumin/Globulin Ratio 0.8 Test 03/20/17 07:29 03/20/17 07:32 White Blood Count 8.23 K/uL Red Blood Count 4.46 M/uL Hemoglobin 14.6 g/dL Hematocrit 42.5 % Mean Corpuscular Volume 95.3 fL Mean Corpuscular Hemoglobin 32.7 pg Mean Corpuscular Hemoglobin Concent 34.4 g/dl RDW Standard Deviation 49.6 fL RDW Coefficient of Variation 14.4 % Platelet Count 62 K/uL Mean Platelet Volume 12.2 fL Bedside Glucose 121 mg/dl Assessment and Plan Patient is a 87 year old male w/ history of shingles on valtrex who developed weakness, nausea, vomiting, diarrhea, now resolved who was admitted from PCP office for evaluation of weakness. GI was asked to evaluate the pt given new onset transaminitis. Hepatic duplex and RUQ US WNL, follow up MRCP concerning for CBD filling defect. LFTs remain elevated, blood culture w/ gram - bacilli. Pt will need ERCP for evaluation of CBD filling defect - Suspected cholangitis - Continue IV ceftriaxone - Add IV Flagyl - MRCP concerning for CBD obstruction - Plan for ERCP - Pt had full liquids this AM - Tentatively plan ERCP Saturday - Daily CMP - Follow up Serology - HOLLEY, AMA, ASMA, SPEP, Ceruloplasmin, Alpha-1, Iron panel w/ ferritin, acute hepatitis, CMV, EBV, HSV, Celiac, Tylenol level - IVF hydration - Anti-emetics PRN - Continue symptomatic management Attg add: I interviewed and examined pt, reviewed chart and labs. Pt improved. MRCP suggestive of choledocholithiasis. Bld cx show GNR. WBC improved. Plan to expand abx coverage, ERCP later this week. GI to follow, please call with any questions or concerns.
[2017-03-20] MEDS: CEFTRIAXONE SOD INJ 1 GM in DEXTROSE 5% ADD-VANTAGE 50ML 50 ML IV SCH (09:48)
[2017-03-20] MEDS: SODIUM CHLORIDE 0.9% 1000ML 1,000 ML IV SCH (12:02)
[2017-03-20 14:48] VITALS: BP 118/72; PULSE 60; TEMP 36.4; O2SAT 95
[2017-03-20] MEDS: METRONIDAZOLE / NSS 500 MG in PREMIXED NSS 100 ML IV SCH ×2 (15:42→23:43)
--- NOTE | 2017-03-20 16:39 | Progress Note ---
Medicine Progress Note Date & Time of Visit: Mar 20, 2017 at 09:31. Subjective Pt was seen and examined Lying in bed with no distress Pt said that he feels fine Denies any abdominal pain, chest pain, fever Objective Last 8 Hrs Date Time Temp Pulse Resp B/P (MAP) Pulse Ox O2 Delivery O2 Flow Rate FiO2 03/20/17 14:48 36.4 60 20 118/72 (87) 95 Room Air Physical Exam: General- no acute distress Head- atraumatic Eyes- PERRL, EOMI ENT- oropharynx clear Neck- supple, no JVD Lungs- clear to auscultation Heart- regular rhythm Abdomen- normal bowel sounds, soft Extremities-no calf tenderness Neuro- alert, oriented x 3; PERRL, EOMI Skin- warm & dry Laboratory Results: Last 24 Hours Test 03/19/17 20:27 03/20/17 07:28 03/20/17 07:29 03/20/17 07:32 Bedside Glucose 134 mg/dl 121 mg/dl Sodium Level 139 mmol/L Potassium Level 3.7 mmol/L Chloride Level 108 mmol/L Carbon Dioxide Level 23 mmol/L Anion Gap 8.0 mmol/L Blood Urea Nitrogen 20 mg/dl Creatinine 0.49 mg/dl Est Creatinine Clear Calc Drug Dose 99.4 ml/min Estimated GFR () 115.5 Estimated GFR (Non- 99.6 BUN/Creatinine Ratio 41.3 Random Glucose 124 mg/dl Calcium Level 7.8 mg/dl Iron Level 74 mcg/dl Total Iron Binding Capacity 202 mcg/dl Ferritin 211.4 ng/ml Total Bilirubin 2.9 mg/dl Aspartate Amino Transf (AST/SGOT) 83 U/L Alanine Aminotransferase (ALT/SGPT) 203 U/L Alkaline Phosphatase 409 U/L Total Protein 5.1 gm/dl Albumin 2.2 gm/dl Globulin 2.9 gm/dl Albumin/Globulin Ratio 0.8 White Blood Count 8.23 K/uL Red Blood Count 4.46 M/uL Hemoglobin 14.6 g/dL Hematocrit 42.5 % Mean Corpuscular Volume 95.3 fL Mean Corpuscular Hemoglobin 32.7 pg Mean Corpuscular Hemoglobin Concent 34.4 g/dl RDW Standard Deviation 49.6 fL RDW Coefficient of Variation 14.4 % Platelet Count 62 K/uL Mean Platelet Volume 12.2 fL Test 03/20/17 12:08 Bedside Glucose 180 mg/dl Assessment & Plan Generalized Weakness Possible related to acute bacteria infection and dehydration UA positive of UTI and urine cx growth ecoli blood cx growth gram negative bacilli WBC mildly elevated and afebrile Continue Rocephin IV daily PT/OT eval ELEVATED LIVER FUNCTION TEST Possible related to acute illness vs drug related AST/ALT on admission 159/409 respectively LFT continue trending down Hepatitis marker negative CT abd/pelvis showed mild gallbladder distention.No evidence of significant ductal dilatation. Diverticulosis. No evidence of acute diverticulitis Liver u/s showed gallbladder is within normal limits. No gallstones. A 1.2 cm right hepatic cyst. MRCP showed Potential filling defect versus polyp distal common bile duct at and are medially proximal to the sphincter Denies any abdominal pain GI on board HOLLEY, AMA, ASMA, SPEP, Ceruloplasmin, Alpha-1, Iron panel w/ ferritin, CMV, EBV, HSV, Celiac, Tylenol level pending Continue IVF Adding Flagyl for possible cholangitis Plan for ERCP on Saturday BACTEREMIA Blood cx positive for gram negative bacilli Continue Rocephin UTI Urine cx positive for Ecoli Continue rocephin Monitor cbc Elevated Lipase Lipase on admission above 800 Lipase trending down Asymptomatic JASON Creatine improved 0.7 Avoid nephrotoxic agents when possible On IVF HYPONATREMIA Na on admission 133 Na improved to 139 On IVF RECENT HERPES ZOSTER Pt dx on 03/07/17 by PCP after rash symptoms for couple days prior. Was started on Valtrex, however pt did not take entire course. Lesions crusted over at this time THROMBOCYTOPENIA Plt 62 today No sign of bleeding continue to monitor DM II Hba1c today 7.1 Hold home oral meds NovoLog sliding scale per protocol HYPOTHYROIDISM Continue levothyroxine ANXIETY xanax at HS prn anxiety DVT PROPHYLAXIS SCDs due to thrombocytopenia CODE STATUS FULL CODE CODE STATUS FULL CODE Consultants: GASTRO Current Inpatient Medications: Current Inpatient Medications Medications (Trade) Dose Ordered Sig/Edilma Route Start Time Stop Time Status Last Admin Dose Admin Ondansetron HCl (Zofran Inj) 4 mg Q6H PRN IV 03/18/17 21:45 04/17/17 21:44 Nitroglycerin (Nitrostat Tab) 0.4 mg UD PRN SL 03/18/17 21:45 04/17/17 21:44 Sodium Chloride 1,000 ml @ 70 mls/hr [id number] IV 03/18/17 23:00 04/17/17 22:59 03/20/17 12:02 70 MLS/HR Insulin Aspart (novoLOG ASPART) SLIDING SCALE If C... ACHS SC 03/19/17 07:00 04/18/17 06:59 03/20/17 12:17 1 UNITS Glucose (Glucose 40% Gel) 15-30 GRAMS 15 GRAMS... UD PRN PO 03/18/17 21:45 04/17/17 21:44 Glucose (Glucose Chew Tab) 4-8 Tablets 4 Tabl... UD PRN PO 03/18/17 21:45 04/17/17 21:44 Dextrose (Dextrose 50% 50ML Syringe) 25-50ML OF 50% DW IV FOR... UD PRN IV 03/18/17 21:45 04/17/17 21:44 Glucagon (Glucagon Inj) 1 mg UD PRN SQ 03/18/17 21:45 04/17/17 21:44 Alprazolam (Xanax Tab) 0.5 mg HS PRN PO 03/18/17 22:00 04/17/17 21:59 Levothyroxine Sodium (Synthroid Tab) 75 mcg DAILYBB PO 03/19/17 06:00 04/18/17 06:59 03/20/17 05:51 75 MCG Tamsulosin HCl (Flomax Cap) 0.4 mg DAILY PO 03/19/17 09:00 04/18/17 08:59 03/20/17 09:02 0.4 MG Ceftriaxone Sodium 1 gm/ Dextrose 50 ml @ 100 mls/hr Q24H IV 03/19/17 10:00 03/24/17 09:29 03/20/17 09:48 100 MLS/HR Metronidazole 500 mg/Prmx 100 ml @ 100 mls/hr Q8H IV 03/20/17 15:30 03/30/17 15:29 03/20/17 15:42 100 MLS/HR
[2017-03-21] MEDS: SODIUM CHLORIDE 0.9% 1000ML 1,000 ML IV SCH ×2 (02:32→17:22)
[2017-03-21] MEDS: LEVOTHYROXINE 75 MCG TAB PO SCH (06:11)
[2017-03-21] MEDS: INSULIN ASPART 100 UNITS/ML 3 ML PEN SC SCH ×4 (06:30→20:36)
[2017-03-21 06:53] VITALS: BP 127/72; PULSE 56; TEMP 36.6; O2SAT 98
[2017-03-21 07:26] LABS: HEMATOCRIT 41.3 % (42-52); HEMOGLOBIN 14.2 g/dL (14.0-18.0); MEAN CELL VOLUME 95.4 fL (80-100); MEAN CORPUSCULAR HEMOGLOBIN 32.8 pg (25-34); MEAN CORPUSCULAR HGB CONC 34.4 g/dl (32-36); RED CELL DISTRIBUTION WIDTH CV 14.2 % (11.5-14.5); RED CELL DISTRIBUTION WIDTH SD 48.8 fL (36.4-46.3)
[2017-03-21 07:28] LABS: MEAN PLATELET VOLUME 11.5 fL (7.4-10.4); PLATELET COUNT 77 K/uL (130-400)
[2017-03-21] MEDS: METRONIDAZOLE / NSS 500 MG in PREMIXED NSS 100 ML IV SCH ×3 (07:32→22:56)
[2017-03-21 07:57] LABS: ALBUMIN 2.1 gm/dl (3.4-5.0); CALCIUM 7.9 mg/dl (8.5-10.1); CREATININE 0.56 mg/dl (0.60-1.40); POTASSIUM 3.6 mmol/L (3.5-5.1)
[2017-03-21 07:59] LABS: TOTAL PROTEIN 5.1 gm/dl (6.4-8.2)
[2017-03-21] MEDS: TAMSULOSIN HCL 0.4 MG CAP PO SCH (09:19)
--- NOTE | 2017-03-21 09:20 | Gastroenterology Progress Note ---
Progress Note Date of Service: Mar 21, 2017 Subjective Pt evaluation today including: conversation w/ patient, physical exam Pt was seen and evaluated, chart reviewed. He is OOB in chair, appears less weak and tells me he is feeling better. Continues to deny any abd pain, nausea, vomiting. Moved his bowls this morning, brown. No black or bloody stools. Is to have ERCP tomorrow. ETOH: none Tylenol: two-three tablets twice a week Supplements: none History of liver disease: none Family history of liver disease: none CT ABD/Pelvis: Examination limited due to the lack of intravenous and oral contrast No evidence of bowel obstruction. No evidence of free airDiverticulosis. No evidence of acute diverticulitis Normal appendix 9.7 cm left renal cyst Mild gallbladder distention. No calculi are visualized. No evidence of significant ductal dilatation. MRCP: Hepatic and renal cysts which have been described previously. Bibasilar atelectasis. Uniform unremarkablepancreas. Potential filling defect versus polyp distal common bile duct at and are medially proximal to the sphincter. ERCP is suggested as follow-up. RUQ US: The gallbladder is within normal limits. No gallstones. A 1.2 cm right hepatic cyst. Duplex: The hepatic and portal veins are patent. Review of Systems Constitutional: No fever, No chills Respiratory: No cough Cardiac: No chest pain Abdomen: No pain, No nausea, No vomiting, No diarrhea, No constipation Skin: + rash Medications Current Inpatient Medications Medications (Trade) Dose Ordered Sig/Edilma Route Start Time Stop Time Status Last Admin Dose Admin Ondansetron HCl (Zofran Inj) 4 mg Q6H PRN IV 03/18/17 21:45 04/17/17 21:44 Nitroglycerin (Nitrostat Tab) 0.4 mg UD PRN SL 03/18/17 21:45 04/17/17 21:44 Sodium Chloride 1,000 ml @ 70 mls/hr [id number] IV 03/18/17 23:00 04/17/17 22:59 03/21/17 02:32 70 MLS/HR Insulin Aspart (novoLOG ASPART) SLIDING SCALE If C... ACHS SC 03/19/17 07:00 04/18/17 06:59 03/20/17 20:38 1 UNITS Glucose (Glucose 40% Gel) 15-30 GRAMS 15 GRAMS... UD PRN PO 03/18/17 21:45 04/17/17 21:44 Glucose (Glucose Chew Tab) 4-8 Tablets 4 Tabl... UD PRN PO 03/18/17 21:45 04/17/17 21:44 Dextrose (Dextrose 50% 50ML Syringe) 25-50ML OF 50% DW IV FOR... UD PRN IV 03/18/17 21:45 04/17/17 21:44 Glucagon (Glucagon Inj) 1 mg UD PRN SQ 03/18/17 21:45 04/17/17 21:44 Alprazolam (Xanax Tab) 0.5 mg HS PRN PO 03/18/17 22:00 04/17/17 21:59 Levothyroxine Sodium (Synthroid Tab) 75 mcg DAILYBB PO 03/19/17 06:00 04/18/17 06:59 03/20/17 05:51 75 MCG Tamsulosin HCl (Flomax Cap) 0.4 mg DAILY PO 03/19/17 09:00 04/18/17 08:59 03/20/17 09:02 0.4 MG Ceftriaxone Sodium 1 gm/ Dextrose 50 ml @ 100 mls/hr Q24H IV 03/19/17 10:00 03/24/17 09:29 03/20/17 09:48 100 MLS/HR Metronidazole 500 mg/Prmx 100 ml @ 100 mls/hr Q8H IV 03/20/17 15:30 03/30/17 15:29 03/21/17 07:32 100 MLS/HR Objective Vital Signs Date Time Temp Pulse Resp B/P (MAP) Pulse Ox O2 Delivery O2 Flow Rate FiO2 03/21/17 06:53 36.6 56 20 127/72 (90) 98 Room Air 03/21/17 00:00 Room Air 03/20/17 17:31 Room Air 03/20/17 14:48 36.4 60 20 118/72 (87) 95 Room Air Physical Exam General Appearance: no apparent distress Eyes: PERRL ENT: hearing grossly normal Neck: supple Respiratory/Chest: lungs clear, normal breath sounds Cardiovascular: regular rate, rhythm Abdomen: normal bowel sounds, non tender, soft Extremities: non-tender Neurologic/Psych: alert, normal mood/affect, oriented x 3 Skin: normal color Laboratory Results Last 24 Hours Test 03/20/17 12:08 03/20/17 16:41 03/20/17 20:07 03/21/17 07:00 Bedside Glucose 180 mg/dl 216 mg/dl 178 mg/dl White Blood Count 7.60 K/uL Red Blood Count 4.33 M/uL Hemoglobin 14.2 g/dL Hematocrit 41.3 % Mean Corpuscular Volume 95.4 fL Mean Corpuscular Hemoglobin 32.8 pg Mean Corpuscular Hemoglobin Concent 34.4 g/dl RDW Standard Deviation 48.8 fL RDW Coefficient of Variation 14.2 % Platelet Count 77 K/uL Mean Platelet Volume 11.5 fL Sodium Level 137 mmol/L Potassium Level 3.6 mmol/L Chloride Level 106 mmol/L Carbon Dioxide Level 25 mmol/L Anion Gap 7.0 mmol/L Blood Urea Nitrogen 13 mg/dl Creatinine 0.56 mg/dl Est Creatinine Clear Calc Drug Dose 87.0 ml/min Estimated GFR () 109.3 Estimated GFR (Non- 94.3 BUN/Creatinine Ratio 23.3 Random Glucose 134 mg/dl Calcium Level 7.9 mg/dl Total Bilirubin 2.3 mg/dl Direct Bilirubin 1.3 mg/dl Aspartate Amino Transf (AST/SGOT) 58 U/L Alanine Aminotransferase (ALT/SGPT) 151 U/L Alkaline Phosphatase 365 U/L Total Protein 5.1 gm/dl Albumin 2.1 gm/dl Globulin 2.9 gm/dl Albumin/Globulin Ratio 0.7 Test 03/21/17 07:44 Bedside Glucose 130 mg/dl Assessment and Plan Patient is a 87 year old male w/ history of shingles on valtrex who developed weakness, nausea, vomiting, diarrhea, now resolved who was admitted from PCP office for evaluation of weakness. GI was asked to evaluate the pt given new onset transaminitis. Hepatic duplex and RUQ US WNL, follow up MRCP concerning for CBD filling defect. LFTs remain elevated, blood culture w/ gram - bacilli. Pt will need ERCP for evaluation of CBD filling defect - Suspected cholangitis - Continue IV ceftriaxone - Add IV Flagyl - MRCP concerning for CBD obstruction - Plan for ERCP - Pt had full liquids this AM - Tentatively plan ERCP Saturday - NPO after midnight - Daily CMP - Follow up Serology - HOLLEY, AMA, ASMA, SPEP, Ceruloplasmin, Alpha-1, Iron panel w/ ferritin, acute hepatitis, CMV, EBV, HSV, Celiac, Tylenol level - IVF hydration - Anti-emetics PRN - Continue symptomatic management GI to follow, please call with any questions or concerns. Attg addd: I interviewed and examined pt, reviewed chart and labs. Pt without complaints, labs improved, augusto PO. Plan cont abx and current diet, ERCP tomorrow.
[2017-03-21] MEDS: CEFTRIAXONE SOD INJ 1 GM in DEXTROSE 5% ADD-VANTAGE 50ML 50 ML IV SCH (10:11)
[2017-03-21] MEDS ORDERED: INDOMETHACIN 50 MG SUPP PR ONE (12:15)
[2017-03-21 15:31] VITALS: BP 114/66; PULSE 54; TEMP 36.2; O2SAT 95
--- NOTE | 2017-03-21 17:43 | Surgery Consultation ---
Consultation Date of Consultation: Mar 21, 2017. Attending Physician: Cary Crow M.D. Reason for Consultation: Elevated liver function tests and abnormal MRCP History of Present Illness I've been asked by Dr. Crow to see this 87-year-old male who was admitted with dehydration. The patient states that over the last week or so he has been feeling very weak. He had some nausea and vomiting about 4 days ago. He has not had any fever or chills however. He denies abdominal pain. He is never had symptoms like this in the past. During his workup he was found to have elevated liver function tests. Those are decreasing. At the present time he feels pretty well. He is never had jaundice, hepatitis or pancreatitis in the past. He has a recent history of shingles for which she has been on Valtrex. He has no constipation. He has had some stool that has been more loose but no delmer diarrhea and he denies melena and hematochezia. He also has a history of prostate cancer for which he underwent placement of radioactive seeds. He thinks his urine is been dark but he has not had dysuria or hematuria. Past Medical/Surgical History Medical Problems: (1) Dehydration Status: Acute (2) Hepatitis Status: Acute (3) Subdural bleeding Status: Acute PSH: Right shoulder repair Left shoulder arthroscopy Bilateral TKR Family History Diabetes mellitus FH: CAD (coronary artery disease) FH: cancer of GI tract FH: prostate cancer Social History Smoking Status: Never Smoker Smokeless Tobacco Use: No Alcohol Use: none Drug Use: none Marital Status: Allergies Coded Allergies: Iodinated Diagnostic Agents (Verified Allergy, Unknown, ., 03/18/17) Iodine (Verified Allergy, Unknown, ALLERGY TO IVP DYE, 03/18/17) Home Medications Scheduled Empagliflozin (Jardiance), 25 MG PO HS Levothyroxine Sodium (Levothyroxine Sodium), 75 MCG PO DAILY Metformin Hcl (Glucophage), 500 MG PO QAM Tamsulosin Hcl (Flomax), 0.4 MG PO DAILY Scheduled PRN Acetaminophen (Tylenol), 1,000 MG PO Q6 PRN for Headache or Pain Alprazolam (Xanax), 0.5 MG PO HS PRN for Anxiety Current Inpatient Medications Current Inpatient Medications Medications (Trade) Dose Ordered Sig/Edilma Route Start Time Stop Time Status Last Admin Dose Admin Ondansetron HCl (Zofran Inj) 4 mg Q6H PRN IV 03/18/17 21:45 04/17/17 21:44 Nitroglycerin (Nitrostat Tab) 0.4 mg UD PRN SL 03/18/17 21:45 04/17/17 21:44 Sodium Chloride 1,000 ml @ 70 mls/hr [id number] IV 03/18/17 23:00 04/17/17 22:59 03/21/17 17:22 70 MLS/HR Insulin Aspart (novoLOG ASPART) SLIDING SCALE If C... ACHS SC 03/19/17 07:00 04/18/17 06:59 03/21/17 17:20 3 UNITS Glucose (Glucose 40% Gel) 15-30 GRAMS 15 GRAMS... UD PRN PO 03/18/17 21:45 04/17/17 21:44 Glucose (Glucose Chew Tab) 4-8 Tablets 4 Tabl... UD PRN PO 03/18/17 21:45 04/17/17 21:44 Dextrose (Dextrose 50% 50ML Syringe) 25-50ML OF 50% DW IV FOR... UD PRN IV 03/18/17 21:45 04/17/17 21:44 Glucagon (Glucagon Inj) 1 mg UD PRN SQ 03/18/17 21:45 04/17/17 21:44 Alprazolam (Xanax Tab) 0.5 mg HS PRN PO 03/18/17 22:00 04/17/17 21:59 Levothyroxine Sodium (Synthroid Tab) 75 mcg DAILYBB PO 03/19/17 06:00 04/18/17 06:59 03/20/17 05:51 75 MCG Tamsulosin HCl (Flomax Cap) 0.4 mg DAILY PO 03/19/17 09:00 04/18/17 08:59 03/21/17 09:19 0.4 MG Ceftriaxone Sodium 1 gm/ Dextrose 50 ml @ 100 mls/hr Q24H IV 03/19/17 10:00 03/24/17 09:29 03/21/17 10:11 100 MLS/HR Metronidazole 500 mg/Prmx 100 ml @ 100 mls/hr Q8H IV 03/20/17 15:30 03/30/17 15:29 03/21/17 15:22 100 MLS/HR Indomethacin (Indocin Suppository) 100 mg ONE ONCE GA 03/22/17 12:00 03/22/17 12:01 Review of Systems Constitutional: + chills (aqbout 7 days ago but no accompaning fever), No fever Respiratory: No cough Cardiovascular: No chest pain, No orthopnea Abdomen: No pain Physical Exam Date Time Temp Pulse Resp B/P (MAP) Pulse Ox O2 Delivery O2 Flow Rate FiO2 03/21/17 16:18 Room Air 03/21/17 15:31 36.2 54 18 114/66 (82) 95 Room Air 03/21/17 08:00 Room Air 03/21/17 06:53 36.6 56 20 127/72 (90) 98 Room Air 03/21/17 00:00 Room Air General Appearance: WD/WN, no apparent distress Head: normocephalic Neck: supple, no adenopathy Respiratory/Chest: chest non-tender, lungs clear Abdomen/GI: normal bowel sounds, non tender, soft Back: normal inspection, no CVA tenderness Extremities/Musculoskelatal: no calf tenderness, no pedal edema Neurologic/Psych: alert Skin: normal color Laboratory Results Last 24 Hours Test 03/20/17 20:07 03/21/17 07:00 03/21/17 07:44 03/21/17 11:44 Bedside Glucose 178 mg/dl 130 mg/dl 180 mg/dl White Blood Count 7.60 K/uL Red Blood Count 4.33 M/uL Hemoglobin 14.2 g/dL Hematocrit 41.3 % Mean Corpuscular Volume 95.4 fL Mean Corpuscular Hemoglobin 32.8 pg Mean Corpuscular Hemoglobin Concent 34.4 g/dl RDW Standard Deviation 48.8 fL RDW Coefficient of Variation 14.2 % Platelet Count 77 K/uL Mean Platelet Volume 11.5 fL Sodium Level 137 mmol/L Potassium Level 3.6 mmol/L Chloride Level 106 mmol/L Carbon Dioxide Level 25 mmol/L Anion Gap 7.0 mmol/L Blood Urea Nitrogen 13 mg/dl Creatinine 0.56 mg/dl Est Creatinine Clear Calc Drug Dose 87.0 ml/min Estimated GFR () 109.3 Estimated GFR (Non- 94.3 BUN/Creatinine Ratio 23.3 Random Glucose 134 mg/dl Calcium Level 7.9 mg/dl Total Bilirubin 2.3 mg/dl Direct Bilirubin 1.3 mg/dl Aspartate Amino Transf (AST/SGOT) 58 U/L Alanine Aminotransferase (ALT/SGPT) 151 U/L Alkaline Phosphatase 365 U/L Total Protein 5.1 gm/dl Albumin 2.1 gm/dl Globulin 2.9 gm/dl Albumin/Globulin Ratio 0.7 Test 03/21/17 16:16 Bedside Glucose 142 mg/dl CT SCAN OF THE ABDOMEN AND PELVIS WITHOUT CONTRAST CLINICAL HISTORY: Abdominal pain. Elevated LFTs. COMPARISON STUDY: No previous studies for comparison. TECHNIQUE: CT scan of the abdomen and pelvis was performed from the lung bases to the proximal femurs. Images are reviewed in the axial, sagittal, and coronal planes. IV contrast was not administered for this examination. A dose lowering technique was utilized adhering to the principles of ALARA. CT DOSE: 356.37 mGy.cm FINDINGS: Lower chest: The heart is mildly enlarged. There is bilateral lower lobe bronchial wall thickening and basilar atelectatic change. Trace effusions are suspected. Liver: The unenhanced liver is normal in size, contour, and attenuation. There is no intrahepatic biliary ductal dilatation. Gallbladder: Mildly distended. No calculi are visualized. Spleen: Normal in size and attenuation. Pancreas: Unremarkable. Adrenal glands: Unremarkable. Kidneys: No renal, ureteral, or bladder calculi are visualized. There is a 9.7 cm left renal cyst. Bowel: There is colonic diverticulosis. No acute peridiverticular inflammatory changes are visualized. The appendix appears normal. There is no evidence of bowel obstruction. There is no evidence of free air. Peritoneum: There is no intraperitoneal free air or abdominal ascites. Vasculature: The abdominal aorta is normal in course and caliber. Adenopathy: None. Pelvic viscera: Prostate patient therapy seeds are visualized. Skeletal structures: There is an old right inferior pubic ramus fracture. No lytic or suspicious blastic lesions are visualized. A right femoral head calcification while nonspecific likely represents a bone island. IMPRESSION: 1. Examination limited due to the lack of intravenous and oral contrast 2. No evidence of bowel obstruction. No evidence of free air 3. Diverticulosis. No evidence of acute diverticulitis 4. Normal appendix 5. 9.7 cm left renal cyst 6. Mild gallbladder distention. No calculi are visualized. No evidence of significant ductal dilatation. ABDOMINAL ULTRASOUND, RIGHT UPPER QUADRANT HISTORY: elevated LFTs, nausea, vomiting, eval CBD. COMPARISON: Abdomen and pelvis CT 03/18/2017. FINDINGS: Pancreas: The pancreatic head and tail are obscured by overlying bowel gas. The remaining portions of the pancreas are within normal limits. Liver: A 1.2 cm cyst within the right hepatic lobe. No solid hepatic masses. Gallbladder: No gallbladder wall thickening. No gallstones. CBD: 4 mm. Right kidney: No hydronephrosis. IMPRESSION: 1. The gallbladder is within normal limits. No gallstones. 2. A 1.2 cm right hepatic cyst. [~ rep ct add3]] DUPLEX PORTAL HEPATIC VEINS CLINICAL HISTORY: elevated LFTs COMPARISON STUDY: Abdomen and pelvis CT 03/18/2017. FINDINGS: The hepatic and portal veins are patent and demonstrate normal direction of flow. The IVC is also patent. Hepatic arteries show no significant stenosis. IMPRESSION: The hepatic and portal veins are patent. MRCP CLINICAL HISTORY: elevated LFTs, rule out CBD obstruction abnormal liver enzymes TECHNIQUE: Multi axial MRI acquisition COMPARISON STUDY: Right upper quadrant 03/19/2017. CT abdomen and pelvis 03/18/2017 FINDINGS: Bilateral renal cysts unchanged from the prior studies. Largest is at the lower pole left kidney measuring 8.5 cm. 1.5 cm right hepatic lobe cyst. Liver is otherwise uniform. Diverticulum descending component of the duodenal sweep. No significant upper abdominal adenopathy. Potential small filling defect distal common duct at the sphincter. Pancreatic duct is unremarkable. No significant distention of the biliary ductal system with maximum diameter of the common duct 4.8 mm. Pancreas appears to be uniform. Hepatic and portal venous structures are unremarkable. The bowel pattern is nonobstructive. Bibasilar atelectasis with lungs. IMPRESSION: 1. Hepatic and renal cysts which have been described previously. 2. Bibasilar atelectasis. 3. Uniform unremarkablepancreas. 4. Potential filling defect versus polyp distal common bile duct at and are medially proximal to the sphincter. ERCP is suggested as follow-up. Assessment & Plan This patient has painless LFT elevation with an abnormal MRCP showing a filling defect in the distal portion that may be consistent with polyp. The MRCP, ultrasound and CT scan all showed no evidence of gallbladder disease. His liver function test abnormalities or improving. He is scheduled for an ERCP tomorrow. If the ERCP demonstrates that there are in fact stones within the common bile duct and then a cholecystectomy at some point would be indicated however considering the presence of his shingles although much improved would contraindicate that at the present time to decrease the chance for infection. If the ERCP demonstrates that the obstructive process is either stricture or neoplastic then cholecystectomy would not be indicated. Thank you for allowing us to see this patient participate in his care
--- NOTE | 2017-03-21 19:41 | Progress Note ---
Medicine Progress Note Date & Time of Visit: Mar 21, 2017 at 12:36. Subjective Pt was seen and examined Sitting in chair with no distress with by his side Pt said that he feels fine He denies any chest pain, palpitation, abdominal pain, N/V Objective Last 8 Hrs Date Time Temp Pulse Resp B/P (MAP) Pulse Ox O2 Delivery O2 Flow Rate FiO2 03/21/17 16:18 Room Air 03/21/17 15:31 36.2 54 18 114/66 (82) 95 Room Air Physical Exam: General- no acute distress Head- atraumatic Eyes- PERRL, EOMI ENT- oropharynx clear Neck- supple, no JVD Lungs- clear to auscultation Heart- regular rhythm Abdomen- normal bowel sounds, soft Extremities-no calf tenderness Neuro- alert, oriented x 3; PERRL, EOMI Skin- warm & dry Laboratory Results: Last 24 Hours Test 03/20/17 20:07 03/21/17 07:00 03/21/17 07:44 03/21/17 11:44 Bedside Glucose 178 mg/dl 130 mg/dl 180 mg/dl White Blood Count 7.60 K/uL Red Blood Count 4.33 M/uL Hemoglobin 14.2 g/dL Hematocrit 41.3 % Mean Corpuscular Volume 95.4 fL Mean Corpuscular Hemoglobin 32.8 pg Mean Corpuscular Hemoglobin Concent 34.4 g/dl RDW Standard Deviation 48.8 fL RDW Coefficient of Variation 14.2 % Platelet Count 77 K/uL Mean Platelet Volume 11.5 fL Sodium Level 137 mmol/L Potassium Level 3.6 mmol/L Chloride Level 106 mmol/L Carbon Dioxide Level 25 mmol/L Anion Gap 7.0 mmol/L Blood Urea Nitrogen 13 mg/dl Creatinine 0.56 mg/dl Est Creatinine Clear Calc Drug Dose 87.0 ml/min Estimated GFR () 109.3 Estimated GFR (Non- 94.3 BUN/Creatinine Ratio 23.3 Random Glucose 134 mg/dl Calcium Level 7.9 mg/dl Total Bilirubin 2.3 mg/dl Direct Bilirubin 1.3 mg/dl Aspartate Amino Transf (AST/SGOT) 58 U/L Alanine Aminotransferase (ALT/SGPT) 151 U/L Alkaline Phosphatase 365 U/L Total Protein 5.1 gm/dl Albumin 2.1 gm/dl Globulin 2.9 gm/dl Albumin/Globulin Ratio 0.7 Test 03/21/17 16:16 Bedside Glucose 142 mg/dl Assessment & Plan Generalized Weakness Possible related to acute bacteria infection and dehydration UA positive of UTI and urine cx growth ecoli blood cx growth gram negative bacilli WBC mildly elevated and afebrile Continue Rocephin IV daily Continue PT/OT Improved ELEVATED LIVER FUNCTION TEST Possible related to acute illness vs drug related AST/ALT on admission 159/409 respectively LFT continue trending down Hepatitis marker negative CT abd/pelvis showed mild gallbladder distention.No evidence of significant ductal dilatation. Diverticulosis. No evidence of acute diverticulitis Liver u/s showed gallbladder is within normal limits. No gallstones. A 1.2 cm right hepatic cyst. MRCP showed Potential filling defect versus polyp distal common bile duct at and are medially proximal to the sphincter Denies any abdominal pain GI on board HOLLEY, AMA, ASMA, SPEP, Ceruloplasmin, Alpha-1, Iron panel w/ ferritin, CMV, EBV, HSV, Celiac, Tylenol level pending Continue IVF Adding Flagyl for possible cholangitis 03/21 Plan for ERCP tomorrow Liver enzymes continue trending down Surgery consult placed for possible gallbladder removal NPO after midnight BACTEREMIA Blood cx positive for gram negative bacilli Continue Rocephin UTI Urine cx positive for Ecoli Continue rocephin Monitor cbc Elevated Lipase Lipase on admission above 800 Lipase trending down Asymptomatic JASON Creatine improved 0.7 Avoid nephrotoxic agents when possible Resolved HYPONATREMIA Na on admission 133 Na improved to 139 On IVF RECENT HERPES ZOSTER Pt dx on 03/07/17 by PCP after rash symptoms for couple days prior. Was started on Valtrex, however pt did not take entire course. Lesions crusted over at this time THROMBOCYTOPENIA Plt 77 today No sign of bleeding continue to monitor DM II Hba1c today 7.1 Hold home oral meds NovoLog sliding scale per protocol HYPOTHYROIDISM Continue levothyroxine ANXIETY xanax at HS prn anxiety DVT PROPHYLAXIS SCDs due to thrombocytopenia CODE STATUS FULL CODE CODE STATUS FULL CODE Consultants: GASTRO Current Inpatient Medications: Current Inpatient Medications Medications (Trade) Dose Ordered Sig/Edilma Route Start Time Stop Time Status Last Admin Dose Admin Ondansetron HCl (Zofran Inj) 4 mg Q6H PRN IV 03/18/17 21:45 04/17/17 21:44 Nitroglycerin (Nitrostat Tab) 0.4 mg UD PRN SL 03/18/17 21:45 04/17/17 21:44 Sodium Chloride 1,000 ml @ 70 mls/hr [id number] IV 03/18/17 23:00 04/17/17 22:59 03/21/17 17:22 70 MLS/HR Insulin Aspart (novoLOG ASPART) SLIDING SCALE If C... ACHS SC 03/19/17 07:00 04/18/17 06:59 03/21/17 17:20 3 UNITS Glucose (Glucose 40% Gel) 15-30 GRAMS 15 GRAMS... UD PRN PO 03/18/17 21:45 04/17/17 21:44 Glucose (Glucose Chew Tab) 4-8 Tablets 4 Tabl... UD PRN PO 03/18/17 21:45 04/17/17 21:44 Dextrose (Dextrose 50% 50ML Syringe) 25-50ML OF 50% DW IV FOR... UD PRN IV 03/18/17 21:45 04/17/17 21:44 Glucagon (Glucagon Inj) 1 mg UD PRN SQ 03/18/17 21:45 04/17/17 21:44 Alprazolam (Xanax Tab) 0.5 mg HS PRN PO 03/18/17 22:00 04/17/17 21:59 Levothyroxine Sodium (Synthroid Tab) 75 mcg DAILYBB PO 03/19/17 06:00 04/18/17 06:59 03/20/17 05:51 75 MCG Tamsulosin HCl (Flomax Cap) 0.4 mg DAILY PO 03/19/17 09:00 04/18/17 08:59 03/21/17 09:19 0.4 MG Ceftriaxone Sodium 1 gm/ Dextrose 50 ml @ 100 mls/hr Q24H IV 03/19/17 10:00 03/24/17 09:29 03/21/17 10:11 100 MLS/HR Metronidazole 500 mg/Prmx 100 ml @ 100 mls/hr Q8H IV 03/20/17 15:30 03/30/17 15:29 03/21/17 15:22 100 MLS/HR Indomethacin (Indocin Suppository) 100 mg ONE ONCE MO 03/22/17 12:00 03/22/17 12:01
[2017-03-21 23:46] VITALS: BP 127/68; PULSE 53; TEMP 36.9; O2SAT 92
[2017-03-22] VITALS (7 sets, daily range): BP systolic 111–128; BP diastolic 55–72; PULSE 46–58; TEMP 36.2–36.9; O2SAT 90–94
[2017-03-22] MEDS: LEVOTHYROXINE 75 MCG TAB PO SCH (06:06)
[2017-03-22] MEDS: INSULIN ASPART 100 UNITS/ML 3 ML PEN SC SCH ×4 (06:30→21:06)
[2017-03-22] MEDS: METRONIDAZOLE / NSS 500 MG in PREMIXED NSS 100 ML IV SCH ×3 (07:48→23:49)
[2017-03-22] MEDS: SODIUM CHLORIDE 0.9% 1000ML 1,000 ML IV SCH ×2 (07:49→21:04)
[2017-03-22] MEDS: TAMSULOSIN HCL 0.4 MG CAP PO SCH (07:51)
[2017-03-22 08:07] LABS: CREATININE 0.52 mg/dl (0.60-1.40); POTASSIUM 3.6 mmol/L (3.5-5.1)
[2017-03-22 08:14] LABS: TOTAL PROTEIN 4.8 gm/dl (6.4-8.2)
--- NOTE | 2017-03-22 08:48 | Progress Note ---
Progress Note Date of Service Mar 22, 2017. Progress Note Pt was seen and evaluated. No acute events overnight. Pt is NPO for ERCP. Morning labs pending. No fever, chills, CP, SOB No acute distress. Lungs clear. Heart regular. Abd soft, non-distended w/ mild. Please keep NPO for ERCP.
[2017-03-22] MEDS: CEFTRIAXONE SOD INJ 1 GM in DEXTROSE 5% ADD-VANTAGE 50ML 50 ML IV SCH (10:10)
[2017-03-22] MEDS ORDERED: INDOMETHACIN 50 MG SUPP PR ONE (12:00)
[2017-03-22] MEDS ORDERED: FENTANYL CITRATE INJ 50 MCG/1 ML 2 ML VIAL ONE (12:32)
[2017-03-22] MEDS ORDERED: ATROPINE SULFATE 0.1 MG/ML 5ML SYR IV PRN (13:15)
[2017-03-22] MEDS ORDERED: EpHEDrine SULFATE INJ 50 MG/ML AMP IV PRN (13:15)
[2017-03-22] MEDS ORDERED: ONDANSETRON INJ 2 MG/ML 2 ML VIAL IV PRN (13:15)
[2017-03-22] MEDS ORDERED: FENTANYL CITRATE INJ 50 MCG/1 ML 2 ML VIAL IV PRN (13:15)
[2017-03-22 13:17] LABS: ANA SCREEN TC 249X NEGATIVE (NEGATIVE); HERPES SIMPLEX AB IGG-1 < 0.90 INDEX (< 0.90); HERPES SIMPLEX AB IGG-2 < 0.90 INDEX (< 0.90)
--- NOTE | 2017-03-22 13:18 | Endo History and Physical ---
History & Physical Date of Service: Mar 22, 2017. Chief Complaint: Abdominal pain Referring Physician: History of Present Illness ERCP requested for treatment of an impacted gallstone. Past Surgical History Hx Cardiac Surgery: No Hx Abdominal Surgery: No Hx Cancer Surgery: No Hx Thoracic Surgery: No Hx Orthopedic: Yes (knee) Hx Urinary Tract Surgery: No Social History Smoking Status: Never Smoker Smokeless Tobacco Use: No Hx Substance Use: No Hx Alcohol Use: No Allergies Coded Allergies: Iodinated Diagnostic Agents (Verified Allergy, Unknown, ., 03/18/17) Iodine (Verified Allergy, Unknown, ALLERGY TO IVP DYE, 03/18/17) Current Medications Reported Home Medications Medications Dose Route/Sig Max Daily Dose Days Date Category Glucophage (Metformin Hcl) 500 Mg Tab 500 Mg PO QAM 03/18/17 Reported Jardiance (Empagliflozin) 25 Mg Tab 25 Mg PO HS 03/18/17 Reported Tylenol (Acetaminophen) 500 Mg Tab 1,000 Mg PO Q6 PRN 12/19/16 Reported Flomax (Tamsulosin Hcl) 0.4 Mg Cap 0.4 Mg PO DAILY 09/22/16 Reported Levothyroxine Sodium 75 Mcg Tab 75 Mcg PO DAILY 09/22/16 Reported Xanax (Alprazolam) 0.5 Mg Tab 0.5 Mg PO HS PRN 08/26/07 Reported Vital Signs Weight (Kilograms): 73.500 Height (Feet): 5 Height (Inches): 6.00 Date Time Temp Pulse Resp B/P (MAP) Pulse Ox O2 Delivery O2 Flow Rate FiO2 03/22/17 12:32 36.7 53 18 128/72 (90) 94 03/22/17 08:00 Room Air 03/22/17 07:25 36.9 58 16 124/70 (88) 93 Room Air 03/22/17 00:00 Room Air 03/21/17 23:46 36.9 53 16 127/68 (87) 92 Room Air 03/21/17 16:18 Room Air 03/21/17 15:31 36.2 54 18 114/66 (82) 95 Room Air Physical Exam General Appearance: no apparent distress Respiratory/Chest: Respiratory effort: no dyspnea Auscultation: breath sounds normal Cardiovascular: Heart Auscultation: murmur Abdomen: Inspection & Palpation: soft, RUQ tenderness Assessment and Plan ERCP for treatment of an impacted gallstone. We have discussed the risks to include bleeding, infection, perforation, pain, pancreatitis, and failed cannulation.
--- NOTE | 2017-03-22 13:19 | Surgery Progress Note ---
Surgery Progress Note Date of Service Mar 22, 2017. Subjective Post OP Day: HD # 4 "feeling good, about the same as yesterday" No abdominal pain No nausea or vomiting going for ERCP shortly Objective Vital Signs: Date Time Temp Pulse Resp B/P (MAP) Pulse Ox O2 Delivery O2 Flow Rate FiO2 03/22/17 12:32 36.7 53 18 128/72 (90) 94 03/22/17 08:00 Room Air 03/22/17 07:25 36.9 58 16 124/70 (88) 93 Room Air 03/22/17 00:00 Room Air 03/21/17 23:46 36.9 53 16 127/68 (87) 92 Room Air 03/21/17 16:18 Room Air 03/21/17 15:31 36.2 54 18 114/66 (82) 95 Room Air General Appearance: WD/WN, no apparent distress Head: normocephalic, atraumatic Neck: trachea midline Respiratory/Chest: no respiratory distress, no accessory muscle use Abdomen: non tender, non distended, soft, no organomegaly, no pulsatile mass, + pertinent finding (blisters of the left lower abdomen across the flank and to the back, crusted and healing) Laboratory Results: Results Past 24 Hours Test 03/21/17 16:16 03/21/17 20:25 03/22/17 06:41 03/22/17 07:23 Range/Units Bedside Glucose 142 109 109 70-99 mg/dl Sodium Level 137 136-145 mmol/L Potassium Level 3.6 3.5-5.1 mmol/L Chloride Level 106 98-107 mmol/L Carbon Dioxide Level 23 21-32 mmol/L Anion Gap 8.0 3-11 mmol/L Blood Urea Nitrogen 11 7-18 mg/dl Creatinine 0.52 0.60-1.40 mg/dl Est Creatinine Clear Calc Drug Dose 93.7 ml/min Estimated GFR () 112.7 Estimated GFR (Non- 97.2 BUN/Creatinine Ratio 20.2 10-20 Random Glucose 131 70-99 mg/dl Calcium Level 8.0 8.5-10.1 mg/dl Total Bilirubin 1.7 0.2-1 mg/dl Aspartate Amino Transf (AST/SGOT) 38 15-37 U/L Alanine Aminotransferase (ALT/SGPT) 113 12-78 U/L Alkaline Phosphatase 316 45-117 U/L Total Protein 4.8 6.4-8.2 gm/dl Albumin 2.0 3.4-5.0 gm/dl Globulin 2.8 2.5-4.0 gm/dl Albumin/Globulin Ratio 0.7 0.9-2 Test 03/22/17 11:40 Range/Units Bedside Glucose 98 70-99 mg/dl Assessment & Plan 87 year-old male with distal common bile duct obstruction (either polyp or stone ) causing LFT elevation and elevated Lipase originally. CT scan, Ultrasound, and MRCP show no acute findings of the gallbladder or gallstones. Abdomen soft , nontender today on examination. Blisters in different stages of healing from shingles of the left lower abdomen and left flank. ERCP scheduled for today. T. bili down to 1.7, LFTS improved. Plan: Await results of ERCP. If patient found to have stones in the CBD he will need cholecystectomy however would recommend in the outpatient setting to allow for shingles blisters to heal to prevent infection. If there are no stones in the CBD then there is no indication for cholecystectomy. Continue current medical management Dr. Gomez covering this weekend. Dr. Lagunas has seen and examined patient, agrees with above.
[2017-03-22] MEDS ORDERED: PROPOFOL IV EMULSION 10 MG/ML 20 ML VIAL IV ONE (13:22)
[2017-03-22] MEDS ORDERED: LIDOCAINE HCL 2% 2 ML VIAL (20MG/ML) ONE (13:22)
[2017-03-22] MEDS ORDERED: ONDANSETRON INJ 2 MG/ML 2 ML VIAL ONE (14:01)
[2017-03-22] MEDS ORDERED: DEXAMETHASONE SOD INJ 4 MG/ML VIAL ONE (14:01)
[2017-03-22] MEDS ORDERED: GLYCOPYRROLATE INJ 0.2 MG/ML VIAL ONE (14:01)
[2017-03-22] MEDS ORDERED: NEOSTIGMINE METHYLSULFATE 5 MG/5 ML SYR ONE (14:01)
--- NOTE | 2017-03-22 14:05 | [facility] Post Operative Brief Note ---
Immediate Operative Summary Operative Date Mar 22, 2017. Pre-Operative Diagnosis Cholangitis and Common Duct Stone Post-Operative Diagnosis Papillary stenosis small gallstone Procedure(s) Performed ERCP Bilairy sphincterotomy Biliary stent Surgeon Dr. Real Mata Sales Associate Fishing Surgeon(s) None Estimated Blood Loss 0 Findings Consistent with Post-Op Diagnosis Specimens CBD cytology Drains None Anesthesia Type General Complication(s) none Disposition Accompanied Pt To Recover: no Disposition: Recovery Room / PACU
--- NOTE | 2017-03-22 14:13 | GI REPORT ---
Procedure Date: 03/22/2017 1:39 PM Procedure: ERCP Indications: Abdominal pain of suspected biliary origin, Abnormal MRCP, Suspected ascending cholangitis Medicines: General Anesthesia, Indocin 100 mg NM Complications: No immediate complications. Estimated blood loss: Minimal. Estimated Blood Loss: Estimated blood loss was minimal. Procedure: Pre-Anesthesia Assessment: - Prior to the procedure, a History and Physical was performed, and patient medications, allergies and sensitivities were reviewed. The patient's tolerance of previous anesthesia was reviewed. - The risks and benefits of the procedure and the sedation options and risks were discussed with the patient. All questions were answered and informed consent was obtained. - Patient identification and proposed procedure were verified prior to the procedure by the physician, the nurse and the information systems manager. The procedure was verified in the procedure room. - Pre-procedure physical examination revealed no contraindications to sedation. - ASA Grade Assessment: III - A patient with severe systemic disease. - After reviewing the risks and benefits, the patient was deemed in satisfactory condition to undergo the procedure. - The anesthesia plan was to use general anesthesia. - Immediately prior to administration of medications, the patient was re-assessed for adequacy to receive sedatives. - The heart rate, respiratory rate, oxygen saturations, blood pressure, adequacy of pulmonary ventilation, and response to care were monitored throughout the procedure. - The physical status of the patient was re-assessed after the procedure. After obtaining informed consent, the scope was passed under direct vision. Throughout the procedure, the patient's blood pressure, pulse, and oxygen saturations were monitored continuously. The scope was introduced through the mouth, and advanced to the duodenum and used to inject contrast into the bile duct. The ERCP was accomplished without difficulty. The patient tolerated the procedure well. Findings: The sales exhibitor film was normal. The esophagus was successfully intubated under direct vision without detailed examination of the pharynx, larynx, and associated structures, and upper GI tract. The upper GI tract was grossly normal. The major papilla was edematous. The bile duct was deeply cannulated with the short-nosed traction sphincterotome (Omni) and 0.035 in Acrobat guidewire during the first cannulation attempt. Contrast was injected. I personally interpreted the bile duct images. Contrast extended to the hepatic ducts. The biliary orifice was stenotic. This appeared benign. The lower third of the main bile duct contained filling defect(s). Biliary sphincterotomy was made with a monofilament Fusion OMNI sphincterotome using ERBE electrocautery. There was no post-sphincterotomy bleeding. Cells for cytology were obtained by brushing the lower third of the main bile duct. To discover objects, the biliary tree was swept with an 8.5 mm to 15 mm balloon starting at the bifurcation several times. A moderate amount of gree sludge was swept from the duct. Nothing remained on occlusion cholangiogram One 10 Fr by 7 cm biliary stent with a single external flap and a single internal flap was placed 7 cm into the common bile duct. Bile flowed through the stent. The stent was in good position. The total fluoroscopy exposure time was 1 minute and 25 seconds. Impression: - The major papilla appeared edematous. - Biliary papillary stenosis, benign. - A filling defect was seen on the cholangiogram. - A biliary sphincterotomy was performed. - The biliary tree was swept and sludge was found. - One biliary stent was placed into the common bile duct. Recommendation: - Avoid aspirin and nonsteroidal anti-inflammatory medicines for 5 days. - Clear liquid diet today. - Use broad spectrum antibiotics for 2 weeks. - Repeat ERCP in 6-8 weeks to remove stent. Bernadette Mata D.O. Bernadette Mata, 03/22/2017 2:13:17 PM This report has been signed electronically. Note Initiated On: 03/22/2017 1:39 PM I attest to the content of the Intraoperative Record and orders documented therein, exceptions below
--- NOTE | 2017-03-22 14:15 | Progress Note ---
Progress Note Date of Service Mar 22, 2017. Progress Note ERCP performed this afternoon. Findings: Papillary stenosis A moderate amount of biliary sludge was noted Interventions: Biliary sphincterotomy Balloon extraction [place] cytology of CBD Biliary stent Recomendations) Clear liquids diet today continue IV hydration Continue abx coverage for a total of 2 weeks Cholecystectomy per General Surgery ERCP for stent removal after cholecystectomy
--- NOTE | 2017-03-22 14:37 | DIAGNOSTIC IMAGING REPORT ---
ERCP BILIARY DUCTAL CLINICAL HISTORY: EXPLORE DUCTS COMPARISON STUDY: MRCP dated 03/19/2017 FLUOROSCOPY TIME: 1 minute to 24 seconds. NUMBER OF FLUOROSCOPIC IMAGES: 10 FINDINGS: 10 fluoroscopic spot images from an ERCP are provided for interpretation. The common bile duct was cannulated. Contrast was used. No filling defects are visualized. It appears a sphincterotomy was performed. A balloon catheter was swept through the duct. A biliary enteric stent was then placed. IMPRESSION: ERCP was performed and a biliary enteric stent was placed. Electronically signed by: Kehinde Che M.D. 03/22/2017 2:35 PM Dictated Date/Time: 03/22/2017 2:33 PM
--- NOTE | 2017-03-22 15:00 | Anesthesiology Progress Note ---
Anesthesia Post Op Note Date & Time Mar 22, 2017 at 15:00 Vital Signs Pain Intensity: 0 Vital Signs Past 12 Hours Date Time Temp Pulse Resp B/P (MAP) Pulse Ox O2 Delivery O2 Flow Rate FiO2 03/22/17 14:45 36.6 47 16 109/55 93 03/22/17 14:35 52 16 114/60 100 Oxymask 10 03/22/17 14:25 51 16 125/61 100 Oxymask 10 03/22/17 14:19 36.6 61 16 139/69 98 Oxymask 10 03/22/17 12:32 36.7 53 18 128/72 (90) 94 03/22/17 08:00 Room Air 03/22/17 07:25 36.9 58 16 124/70 (88) 93 Room Air Notes Mental Status: alert / awake / arousable, participated in evaluation Pt Amnestic to Procedure: Yes Nausea / Vomiting: adequately controlled Pain: adequately controlled Airway Patency, RR, SpO2: stable & adequate BP & HR: stable & adequate Hydration State: stable & adequate Anesthetic Complications: no major complications apparent
--- NOTE | 2017-03-22 19:44 | Progress Note ---
Medicine Progress Note Date & Time of Visit: Mar 22, 2017 at 10:39. Subjective Pt was seen and examined Sitting in chair with no distress Pt has been NPO for ERCP No abdominal pain, nausea and vomiting denies any chest pain, palpitation, dizziness and SOB Objective Last 8 Hrs Date Time Temp Pulse Resp B/P (MAP) Pulse Ox O2 Delivery O2 Flow Rate FiO2 03/22/17 17:40 36.6 52 18 123/67 (85) 90 Room Air 03/22/17 16:46 Room Air 03/22/17 16:41 36.7 51 18 121/58 (79) 93 Room Air 03/22/17 15:40 36.3 46 18 126/63 (84) 92 Room Air 03/22/17 15:10 36.8 49 18 111/55 (73) 90 Room Air 03/22/17 15:00 36.6 48 16 101/53 92 03/22/17 14:45 36.6 47 16 109/55 93 03/22/17 14:35 52 16 114/60 100 Oxymask 10 03/22/17 14:25 51 16 125/61 100 Oxymask 10 03/22/17 14:19 36.6 61 16 139/69 98 Oxymask 10 03/22/17 12:32 36.7 53 18 128/72 (90) 94 Physical Exam: General- no acute distress Head- atraumatic Eyes- PERRL, EOMI ENT- oropharynx clear Neck- supple, no JVD Lungs- clear to auscultation Heart- regular rhythm Abdomen- normal bowel sounds, soft Extremities-no calf tenderness Neuro- alert, oriented x 3; PERRL, EOMI Skin- warm & dry Laboratory Results: Last 24 Hours Test 03/21/17 20:25 03/22/17 06:41 03/22/17 07:23 03/22/17 11:40 Bedside Glucose 109 mg/dl 109 mg/dl 98 mg/dl Sodium Level 137 mmol/L Potassium Level 3.6 mmol/L Chloride Level 106 mmol/L Carbon Dioxide Level 23 mmol/L Anion Gap 8.0 mmol/L Blood Urea Nitrogen 11 mg/dl Creatinine 0.52 mg/dl Est Creatinine Clear Calc Drug Dose 93.7 ml/min Estimated GFR () 112.7 Estimated GFR (Non- 97.2 BUN/Creatinine Ratio 20.2 Random Glucose 131 mg/dl Calcium Level 8.0 mg/dl Total Bilirubin 1.7 mg/dl Aspartate Amino Transf (AST/SGOT) 38 U/L Alanine Aminotransferase (ALT/SGPT) 113 U/L Alkaline Phosphatase 316 U/L Total Protein 4.8 gm/dl Albumin 2.0 gm/dl Globulin 2.8 gm/dl Albumin/Globulin Ratio 0.7 Test 03/22/17 14:23 03/22/17 16:23 Bedside Glucose 125 mg/dl 143 mg/dl Assessment & Plan Generalized Weakness Possible related to acute bacteria infection and dehydration UA positive of UTI and urine cx growth ecoli blood cx growth gram negative bacilli WBC mildly elevated and afebrile Continue Rocephin IV daily Continue PT/OT Improved ELEVATED LIVER FUNCTION TEST Possible related to acute illness vs drug related AST/ALT on admission 159/409 respectively LFT continue trending down Hepatitis marker negative CT abd/pelvis showed mild gallbladder distention.No evidence of significant ductal dilatation. Diverticulosis. No evidence of acute diverticulitis Liver u/s showed gallbladder is within normal limits. No gallstones. A 1.2 cm right hepatic cyst. MRCP showed Potential filling defect versus polyp distal common bile duct at and are medially proximal to the sphincter Denies any abdominal pain GI on board HOLLEY, AMA, ASMA, SPEP, Ceruloplasmin, Alpha-1, Iron panel w/ ferritin, CMV, EBV, HSV, Celiac, Tylenol level pending Continue IVF Adding Flagyl for possible cholangitis 03/22 Plan for ERCP today Liver enzymes continue trending down Surgery consult placed for possible gallbladder removal, but waiting for ERCP result Keep NPO for ERCP schedule at 1 pm Continue abx for now BACTEREMIA Blood cx positive for gram negative bacilli Continue Rocephin UTI Urine cx positive for Ecoli Continue rocephin Monitor cbc Elevated Lipase Lipase on admission above 800 Lipase trending down Asymptomatic JASON Creatine improved 0.7 Avoid nephrotoxic agents when possible Resolved HYPONATREMIA Na on admission 133 Na improved to 137 On IVF RECENT HERPES ZOSTER Pt dx on 03/07/17 by PCP after rash symptoms for couple days prior. Was started on Valtrex, however pt did not take entire course. Lesions crusted over at this time Resolved THROMBOCYTOPENIA Plt 77 yesterday No sign of bleeding continue to monitor DM II Hba1c today 7.1 Hold home oral meds NovoLog sliding scale per protocol HYPOTHYROIDISM Continue levothyroxine ANXIETY xanax at HS prn anxiety DVT PROPHYLAXIS SCDs due to thrombocytopenia CODE STATUS FULL CODE CODE STATUS FULL CODE Consultants: GASTRO Current Inpatient Medications: Current Inpatient Medications Medications (Trade) Dose Ordered Sig/Edilma Route Start Time Stop Time Status Last Admin Dose Admin Ondansetron HCl (Zofran Inj) 4 mg Q6H PRN IV 03/18/17 21:45 04/17/17 21:44 Nitroglycerin (Nitrostat Tab) 0.4 mg UD PRN SL 03/18/17 21:45 04/17/17 21:44 Sodium Chloride 1,000 ml @ 70 mls/hr [id number] IV 03/18/17 23:00 04/17/17 22:59 03/22/17 07:49 70 MLS/HR Insulin Aspart (novoLOG ASPART) SLIDING SCALE If C... ACHS SC 03/19/17 07:00 04/18/17 06:59 03/22/17 17:20 2 UNITS Glucose (Glucose 40% Gel) 15-30 GRAMS 15 GRAMS... UD PRN PO 03/18/17 21:45 04/17/17 21:44 Glucose (Glucose Chew Tab) 4-8 Tablets 4 Tabl... UD PRN PO 03/18/17 21:45 04/17/17 21:44 Dextrose (Dextrose 50% 50ML Syringe) 25-50ML OF 50% DW IV FOR... UD PRN IV 03/18/17 21:45 04/17/17 21:44 Glucagon (Glucagon Inj) 1 mg UD PRN SQ 03/18/17 21:45 04/17/17 21:44 Alprazolam (Xanax Tab) 0.5 mg HS PRN PO 03/18/17 22:00 04/17/17 21:59 Levothyroxine Sodium (Synthroid Tab) 75 mcg DAILYBB PO 03/19/17 06:00 04/18/17 06:59 03/20/17 05:51 75 MCG Tamsulosin HCl (Flomax Cap) 0.4 mg DAILY PO 03/19/17 09:00 04/18/17 08:59 03/21/17 09:19 0.4 MG Ceftriaxone Sodium 1 gm/ Dextrose 50 ml @ 100 mls/hr Q24H IV 03/19/17 10:00 1/21/18 09:29 03/22/17 10:10 100 MLS/HR Metronidazole 500 mg/Prmx 100 ml @ 100 mls/hr Q8H IV 03/20/17 15:30 03/30/17 15:29 03/22/17 15:20 100 MLS/HR
[2017-03-23 02:04] VITALS: BP 122/64; PULSE 51; TEMP 36.3; O2SAT 93
[2017-03-23] MEDS: LEVOTHYROXINE 75 MCG TAB PO SCH (06:09)
[2017-03-23 06:10] VITALS: BP 128/71; PULSE 52; TEMP 36.4; O2SAT 93
[2017-03-23] MEDS: METRONIDAZOLE / NSS 500 MG in PREMIXED NSS 100 ML IV SCH ×2 (07:12→15:01)
[2017-03-23 07:31] VITALS: BP 105/59; PULSE 47; TEMP 36.3; O2SAT 95
[2017-03-23 07:47] LABS: HEMATOCRIT 41.6 % (42-52); MEAN CELL VOLUME 96.1 fL (80-100); MEAN CORPUSCULAR HEMOGLOBIN 32.3 pg (25-34); MEAN CORPUSCULAR HGB CONC 33.7 g/dl (32-36); MEAN PLATELET VOLUME 11.1 fL (7.4-10.4); PLATELET COUNT 162 K/uL (130-400); RED CELL DISTRIBUTION WIDTH CV 14.4 % (11.5-14.5); RED CELL DISTRIBUTION WIDTH SD 50.6 fL (36.4-46.3); WHITE BLOOD COUNT 9.55 K/uL (4.8-10.8)
[2017-03-23 08:17] LABS: ALBUMIN 1.8 gm/dl (3.4-5.0); CALCIUM 7.7 mg/dl (8.5-10.1); CREATININE 0.7 mg/dl (0.60-1.40); POTASSIUM 3.9 mmol/L (3.5-5.1); TOTAL PROTEIN 4.6 gm/dl (6.4-8.2)
[2017-03-23] MEDS: TAMSULOSIN HCL 0.4 MG CAP PO SCH (08:21)
[2017-03-23] MEDS: INSULIN ASPART 100 UNITS/ML 3 ML PEN SC SCH ×2 (08:23→12:13)
[2017-03-23] MEDS: SODIUM CHLORIDE 0.9% 1000ML 1,000 ML IV SCH (09:08)
[2017-03-23] MEDS: CEFTRIAXONE SOD INJ 1 GM in DEXTROSE 5% ADD-VANTAGE 50ML 50 ML IV SCH (09:24)
--- NOTE | 2017-03-23 09:40 | Surgery Progress Note ---
Surgery Progress Note Date of Service Mar 23, 2017. Subjective + feeling well pt feeling well. wants to go home Objective Vital Signs: Date Time Temp Pulse Resp B/P (MAP) Pulse Ox O2 Delivery O2 Flow Rate FiO2 03/23/17 07:31 36.3 47 20 105/59 (74) 95 Room Air 03/23/17 06:10 36.4 52 20 128/71 (90) 93 Room Air 03/23/17 02:43 Room Air 03/23/17 02:04 36.3 51 20 122/64 (83) 93 Room Air 03/22/17 21:48 36.2 51 18 123/65 (84) 94 Room Air 03/22/17 17:40 36.6 52 18 123/67 (85) 90 Room Air 03/22/17 16:46 Room Air 03/22/17 16:41 36.7 51 18 121/58 (79) 93 Room Air 03/22/17 15:40 36.3 46 18 126/63 (84) 92 Room Air 03/22/17 15:10 36.8 49 18 111/55 (73) 90 Room Air 03/22/17 15:00 36.6 48 16 101/53 92 03/22/17 14:45 36.6 47 16 109/55 93 03/22/17 14:35 52 16 114/60 100 Oxymask 10 03/22/17 14:25 51 16 125/61 100 Oxymask 10 03/22/17 14:19 36.6 61 16 139/69 98 Oxymask 10 03/22/17 12:32 36.7 53 18 128/72 (90) 94 General Appearance: no apparent distress Head: normocephalic Neck: supple, no JVD Respiratory/Chest: no respiratory distress, no accessory muscle use Abdomen: non tender, non distended, soft Laboratory Results: Results Past 24 Hours Test 03/22/17 11:40 03/22/17 14:23 03/22/17 16:23 03/22/17 20:26 Range/Units Bedside Glucose 98 125 143 229 70-99 mg/dl Test 03/23/17 07:18 03/23/17 07:24 Range/Units White Blood Count 9.55 4.8-10.8 K/uL Red Blood Count 4.33 4.7-6.1 M/uL Hemoglobin 14.0 14.0-18.0 g/dL Hematocrit 41.6 42-52 % Mean Corpuscular Volume 96.1 80-100 fL Mean Corpuscular Hemoglobin 32.3 25-34 pg Mean Corpuscular Hemoglobin Concent 33.7 32-36 g/dl RDW Standard Deviation 50.6 36.4-46.3 fL RDW Coefficient of Variation 14.4 11.5-14.5 % Platelet Count 162 130-400 K/uL Mean Platelet Volume 11.1 7.4-10.4 fL Sodium Level 138 136-145 mmol/L Potassium Level 3.9 3.5-5.1 mmol/L Chloride Level 105 98-107 mmol/L Carbon Dioxide Level 25 21-32 mmol/L Anion Gap 8.0 3-11 mmol/L Blood Urea Nitrogen 14 7-18 mg/dl Creatinine 0.70 0.60-1.40 mg/dl Est Creatinine Clear Calc Drug Dose 69.6 ml/min Estimated GFR () 99.7 Estimated GFR (Non- 86.1 BUN/Creatinine Ratio 20.0 10-20 Random Glucose 167 70-99 mg/dl Calcium Level 7.7 8.5-10.1 mg/dl Total Bilirubin 1.2 0.2-1 mg/dl Aspartate Amino Transf (AST/SGOT) 27 15-37 U/L Alanine Aminotransferase (ALT/SGPT) 87 12-78 U/L Alkaline Phosphatase 281 45-117 U/L Total Protein 4.6 6.4-8.2 gm/dl Albumin 1.8 3.4-5.0 gm/dl Globulin 2.8 2.5-4.0 gm/dl Albumin/Globulin Ratio 0.6 0.9-2 Bedside Glucose 129 70-99 mg/dl Assessment & Plan ERCP negative for gallstones or other pathology ok from our standpoint for pt to go home surgery will sign off
[2017-03-23 11:29] VITALS: BP 113/64; PULSE 45; TEMP 36.3; O2SAT 96
--- NOTE | 2017-03-23 12:43 | Gastroenterology Progress Note ---
Gastroenterology Progress Note Patient was seen and examined, s/p ERCP yesterday for suspected cholangitis. Noted with Papillary stenosis and moderate amount of biliary sludge. Today he denies any abdominal pain, tolerated diet. On exam: abdomen is soft, nontender. Recommendations: Diet as tolerated. Can discharge with PO Abx to complete 2 weeks ERCP as outpatient for stent removal after cholecystectomy. GI will sign off.
--- NOTE | 2017-03-23 14:50 | Progress Note ---
Medicine Progress Note Date & Time of Visit: Mar 23, 2017 at 14:37. Subjective Pt was seen and examined Lying in bed with no distress with family at bedside Pt said that he feels fine tolerated diet Denies any abdominal pain, palpitation and sob Objective Last 8 Hrs Date Time Temp Pulse Resp B/P (MAP) Pulse Ox O2 Delivery O2 Flow Rate FiO2 03/23/17 11:29 36.3 45 20 113/64 (80) 96 Room Air 03/23/17 08:00 Room Air 03/23/17 07:31 36.3 47 20 105/59 (74) 95 Room Air Physical Exam: General- no acute distress Head- atraumatic Eyes- PERRL, EOMI ENT- oropharynx clear Neck- supple, no JVD Lungs- clear to auscultation Heart- regular rhythm Abdomen- normal bowel sounds, soft Extremities-no calf tenderness Neuro- alert, oriented x 3; PERRL, EOMI Skin- warm & dry Laboratory Results: Last 24 Hours Test 03/22/17 16:23 03/22/17 20:26 03/23/17 07:18 03/23/17 07:24 Bedside Glucose 143 mg/dl 229 mg/dl 129 mg/dl White Blood Count 9.55 K/uL Red Blood Count 4.33 M/uL Hemoglobin 14.0 g/dL Hematocrit 41.6 % Mean Corpuscular Volume 96.1 fL Mean Corpuscular Hemoglobin 32.3 pg Mean Corpuscular Hemoglobin Concent 33.7 g/dl RDW Standard Deviation 50.6 fL RDW Coefficient of Variation 14.4 % Platelet Count 162 K/uL Mean Platelet Volume 11.1 fL Sodium Level 138 mmol/L Potassium Level 3.9 mmol/L Chloride Level 105 mmol/L Carbon Dioxide Level 25 mmol/L Anion Gap 8.0 mmol/L Blood Urea Nitrogen 14 mg/dl Creatinine 0.70 mg/dl Est Creatinine Clear Calc Drug Dose 69.6 ml/min Estimated GFR () 99.7 Estimated GFR (Non- 86.1 BUN/Creatinine Ratio 20.0 Random Glucose 167 mg/dl Calcium Level 7.7 mg/dl Total Bilirubin 1.2 mg/dl Aspartate Amino Transf (AST/SGOT) 27 U/L Alanine Aminotransferase (ALT/SGPT) 87 U/L Alkaline Phosphatase 281 U/L Total Protein 4.6 gm/dl Albumin 1.8 gm/dl Globulin 2.8 gm/dl Albumin/Globulin Ratio 0.6 Test 03/23/17 11:06 Bedside Glucose 170 mg/dl Assessment & Plan Generalized Weakness Possible related to acute bacteria infection and dehydration UA positive of UTI and urine cx growth ecoli blood cx growth gram negative bacilli WBC mildly elevated and afebrile Continue Rocephin IV daily Continue PT/OT Stable ELEVATED LIVER FUNCTION TEST Possible related to acute illness vs drug related AST/ALT on admission 159/409 respectively LFT continue trending down Hepatitis marker negative CT abd/pelvis showed mild gallbladder distention.No evidence of significant ductal dilatation. Diverticulosis. No evidence of acute diverticulitis Liver u/s showed gallbladder is within normal limits. No gallstones. A 1.2 cm right hepatic cyst. MRCP showed Potential filling defect versus polyp distal common bile duct at and are medially proximal to the sphincter Denies any abdominal pain GI on board HOLLEY, AMA, ASMA, SPEP, Ceruloplasmin, Alpha-1, Iron panel w/ ferritin, CMV, EBV, HSV, Celiac, Tylenol level pending Continue IVF Adding Flagyl for possible cholangitis 03/23 S/P ERCP and a biliary enteric stent was placed yesterday Liver enzymes continue trending down AST WNL and ALT 87 Surgery on board ERCP for stent removal after cholecystectomy Follow up with GI in 2 weeks Tolerated abx Continue abx to complete 14 days course with flagyl Check liver enzymes within 1 week BACTEREMIA Blood cx positive for ecoli On Rocephin day 4 Will discharge on Ceftin for 10 days to complete 14 days abx UTI Urine cx positive for Ecoli Continue rocephin Will discharge on Ceftin Elevated Lipase Lipase on admission above 800 Lipase trending down Asymptomatic AJSON Creatine improved 0.7 Avoid nephrotoxic agents when possible Resolved HYPONATREMIA Na on admission 133 Na improved to 138 On IVF RECENT HERPES ZOSTER Pt dx on 03/07/17 by PCP after rash symptoms for couple days prior. Was started on Valtrex, however pt did not take entire course. Lesions crusted over at this time Resolved THROMBOCYTOPENIA Plt 162 yesterday No sign of bleeding Resolved DM II Hba1c today 7.1 Resume oral meds on discharge NovoLog sliding scale per protocol HYPOTHYROIDISM Continue levothyroxine ANXIETY xanax at HS prn anxiety DVT PROPHYLAXIS SCDs due to thrombocytopenia CODE STATUS FULL CODE Disposition Will discharge home today Consultants: GASTRO Surgery Current Inpatient Medications: Current Inpatient Medications Medications (Trade) Dose Ordered Sig/Edilma Route Start Time Stop Time Status Last Admin Dose Admin Ondansetron HCl (Zofran Inj) 4 mg Q6H PRN IV 03/18/17 21:45 04/17/17 21:44 03/23/17 09:20 4 MG Nitroglycerin (Nitrostat Tab) 0.4 mg UD PRN SL 03/18/17 21:45 04/17/17 21:44 Sodium Chloride 1,000 ml @ 70 mls/hr [id number] IV 03/18/17 23:00 04/17/17 22:59 03/23/17 09:08 70 MLS/HR Insulin Aspart (novoLOG ASPART) SLIDING SCALE If C... ACHS SC 03/19/17 07:00 04/18/17 06:59 03/23/17 12:13 4 UNITS Glucose (Glucose 40% Gel) 15-30 GRAMS 15 GRAMS... UD PRN PO 03/18/17 21:45 04/17/17 21:44 Glucose (Glucose Chew Tab) 4-8 Tablets 4 Tabl... UD PRN PO 03/18/17 21:45 04/17/17 21:44 Dextrose (Dextrose 50% 50ML Syringe) 25-50ML OF 50% DW IV FOR... UD PRN IV 03/18/17 21:45 04/17/17 21:44 Glucagon (Glucagon Inj) 1 mg UD PRN SQ 03/18/17 21:45 04/17/17 21:44 Alprazolam (Xanax Tab) 0.5 mg HS PRN PO 03/18/17 22:00 04/17/17 21:59 Levothyroxine Sodium (Synthroid Tab) 75 mcg DAILYBB PO 03/19/17 06:00 04/18/17 06:59 03/23/17 06:09 75 MCG Tamsulosin HCl (Flomax Cap) 0.4 mg DAILY PO 03/19/17 09:00 04/18/17 08:59 03/23/17 08:21 0.4 MG Ceftriaxone Sodium 1 gm/ Dextrose 50 ml @ 100 mls/hr Q24H IV 03/19/17 10:00 03/24/17 09:29 03/23/17 09:24 100 MLS/HR Metronidazole 500 mg/Prmx 100 ml @ 100 mls/hr Q8H IV 03/20/17 15:30 03/30/17 15:29 03/23/17 07:12 100 MLS/HR
[2017-03-23] MEDS ORDERED: METR-162 PO (14:53)
[2017-03-23] MEDS ORDERED: CEFD300C2 PO (15:04)
--- NOTE | 2017-03-23 15:10 | Discharge Instructions ---
Discharge Instructions Date of Service Mar 23, 2017. Admission Reason for Admission: Dehydration,Transaminitis Discharge Discharge Diagnosis / Problem: Elevated Liver enzymes, Urinary tract infection , bacteremia Discharge Goals Goal(s): Decrease discomfort, Improve function, Improve disease control Activity Recommendations Activity Limitations: resume your previous activity (as tolerated) . Instructions / Follow-Up Instructions / Follow-Up Follow up with your primary care provider Dr. Cruz on 03/28 @ 10:05 am Follow up with Gastro Dr. Mata in 2 weeks Check Liver enzymes in 1 week (your physician will order it) Complete course of antibiotic with flagyl and cefdinir Continue physical therapy Fall precaution Current Hospital Diet Patient's current hospital diet: Diabetes Type 2 Diet, Low Fat Diet Discharge Diet Recommended Diet: Diabetes Type 2 Diet Procedures Procedures Performed: ERCP Bilairy sphincterotomy Biliary stent Pending Studies Studies pending at discharge: no Laboratory Results Hemoglobin A1c Test 03/19/17 05:42 Range/Units Estimated Average Glucose 157 mg/dl Hemoglobin A1c 7.1 H 4.5-5.6 % Medical Emergencies . Who to Call and When: Medical Emergencies: If at any time you feel your situation is an emergency, please call 911 immediately. . Non-Emergent Contact Non-Emergency issues call your: Primary Care Provider Call Non-Emergent contact if: you have a fever, you have any medication questions . . "Provider Documentation" section prepared by Cary Crow. . VTE Core Measure Inpt VTE Proph given/why not?: SCD's
[2017-03-23 15:16] VITALS: BP 113/64; PULSE 45; TEMP 36.3; O2SAT 96
[2017-03-23 15:17] VITALS: BP 123/64; PULSE 50; TEMP 36.4; O2SAT 95
--- NOTE | 2017-03-25 01:03 | Discharge Summary ---
Discharge Summary Date of Service Mar 25, 2017. Discharge Summary Admission Date: Mar 18, 2017 at 21:40 Discharge Date: Mar 23, 2017 Discharge Disposition: Home Principal Diagnosis: Elevated Liver enzymes Secondary Diagnoses/Problems: Urinary tract infection bacteremia Generalized Weakness Elevated lipase JASON Thrombocytopenia Herpes Zoster anxiety hypothyroidism Procedures: MRCP ERCP Consultations: GASTRO Surgery Medication Reconciliation New Medications: Cefdinir (Omnicef) 300 Mg Cap 1 CAP PO BID for 10 Days, #20 CAP Metronidazole (Flagyl) 500 Mg Tab 500 MG PO TID for 10 Days, #30 TAB Continued Medications: Alprazolam (Xanax) 0.5 Mg Tab 0.5 MG PO HS PRN for Anxiety, 0 Refills Empagliflozin (Jardiance) 25 Mg Tab 25 MG PO HS Levothyroxine Sodium (Levothyroxine Sodium) 75 Mcg Tab 75 MCG PO DAILY, TAB Metformin Hcl (Glucophage) 500 Mg Tab 500 MG PO QAM, TAB Tamsulosin Hcl (Flomax) 0.4 Mg Cap 0.4 MG PO DAILY, CAP Discontinued Medications: Acetaminophen (Tylenol) 500 Mg Tab 1000 MG PO Q6 PRN for Headache or Pain, TAB Admission Information HPI (per Admitting provider): Pt is 87 y/o M with PMH prostate CA s/p radiation, hypothyroidism, left renal cyst, DM II, anxiety presented to ER from PCP office with c/o generalized weakness. Pt states past week with intermittent nausea x 1 week, vomited last week, none since. Reports 3 BM's daily and one is loose. Intermittent red blood noted on toilet paper or stool over past couple of years and pt reports was dx with hemorrhoids in past. Denies any worsening or increased bleeding. Reports urine looking dark for past week. He denies any abdominal pain. Denies melena. States 4 days ago had shaking chills for one day. Did not take temperature at that time. Pt states decreased appetite and admits hasn't been eating or drinking much. Pt states 2 days ago coughed a couple of days and had voice hoarseness. that has since resolved. On 03/07/17 was seen at PCP office for a rash that he had for several days and dx with shingles and started on Valtrex. Reports taking first couple of days and then only took 1-2 pills a day for a couple of days as wondered if Valtrex was causing nausea. Denies hematochezia. Reports uses Tylenol rarely and denies recent use. Denies use of any other pain medications. Denies ETOH use or hx liver problems in past. Was started on Jardiance and Metformin in 12/18 for DM II. Denies other new medications or other supplements. Denies diaphoresis, VILLAREAL, dizziness, syncope, vision changes, CP, SOB, orthopnea, palpitations, sore throat, choking, otalgia, rhinorrhea, paresthesias, extremity edema, dysuria, urinary frequency or retention. In ER pt afebrile. BP: 88/56 to 108/63. R: 21, P: 53-61. 95% on RA. WBC: 19. Plt : 68. Na: 133. Cr: 1.3 (was 1 on 12/18). Gluc: 173, Total bilirubin: 4.6, direct bilirubin: 3.0, AST: 159, ALT: 409, Alk Phos: 542, Lipase: 886. (Pt had normal LFTs in 2017 on out pt records). negative rapid influenza. CT abd/pelvis : no bowel obstruction, diverticulosis, L renal cyst, mild gallbladder distension, no ductal dilation. Pending U/A. Pt given 2L NSS in ER. Physical Exam (per Admitting): General Appearance: no apparent distress, + pertinent finding (mildly ill appearing) Head: normocephalic, atraumatic Eyes: normal inspection, PERRL, EOMI, sclerae normal ENT: pharynx normal, + pertinent finding (mucous membranes dry. hard of hearing) Neck: supple, no JVD, trachea midline Respiratory/Chest: chest non-tender, lungs clear, normal breath sounds, no respiratory distress, no accessory muscle use Cardiovascular: regular rate, rhythm (rate 62), no edema, no murmur, normal peripheral pulses Abdomen/GI: normal bowel sounds, non tender, soft, + pertinent finding ( negative hernandez's sign) Back: no CVA tenderness Extremities/Musculoskelatal: normal inspection, no calf tenderness, normal capillary refill, no pedal edema, normal range of motion, non-tender Neurologic/Psych: alert, normal mood/affect, oriented x 3 Skin: normal color, warm/dry, + rash (multiple scabs on erythematous base to left lower abdomen, left flank and left lower back) Hospital Course Generalized Weakness Possible related to acute bacteria infection and dehydration UA positive of UTI and urine cx growth ecoli blood cx growth gram negative bacilli WBC mildly elevated and afebrile Continue Rocephin IV daily Continue PT/OT Stable ELEVATED LIVER FUNCTION TEST Possible related to acute illness vs drug related AST/ALT on admission 159/409 respectively LFT continue trending down Hepatitis marker negative CT abd/pelvis showed mild gallbladder distention.No evidence of significant ductal dilatation. Diverticulosis. No evidence of acute diverticulitis Liver u/s showed gallbladder is within normal limits. No gallstones. A 1.2 cm right hepatic cyst. MRCP showed Potential filling defect versus polyp distal common bile duct at and are medially proximal to the sphincter Denies any abdominal pain GI on board HOLLEY, AMA, ASMA, SPEP, Ceruloplasmin, Alpha-1, Iron panel w/ ferritin, CMV, EBV, HSV, Celiac, Tylenol level pending Continue IVF Adding Flagyl for possible cholangitis 03/23 S/P ERCP and a biliary enteric stent was placed yesterday Liver enzymes continue trending down AST WNL and ALT 87 Surgery on board ERCP for stent removal after cholecystectomy Follow up with GI in 2 weeks Tolerated abx Continue abx to complete 14 days course with flagyl Check liver enzymes within 1 week BACTEREMIA Blood cx positive for ecoli On Rocephin day 4 Will discharge on Ceftin for 10 days to complete 14 days abx UTI Urine cx positive for Ecoli Continue rocephin Will discharge on Ceftin Elevated Lipase Lipase on admission above 800 Lipase trending down Asymptomatic JASON Creatine improved 0.7 Avoid nephrotoxic agents when possible Resolved HYPONATREMIA Na on admission 133 Na improved to 138 On IVF RECENT HERPES ZOSTER Pt dx on 03/07/17 by PCP after rash symptoms for couple days prior. Was started on Valtrex, however pt did not take entire course. Lesions crusted over at this time Resolved THROMBOCYTOPENIA Plt 162 yesterday No sign of bleeding Resolved DM II Hba1c today 7.1 Resume oral meds on discharge NovoLog sliding scale per protocol HYPOTHYROIDISM Continue levothyroxine ANXIETY xanax at HS prn anxiety DVT PROPHYLAXIS SCDs due to thrombocytopenia CODE STATUS FULL CODE Disposition Will discharge home today Total time spent on discharge = 35 MINUTES This includes examination of the patient, discharge planning, medication reconciliation, and communication with other providers. Discharge Instructions Discharge Instructions Date of Service Mar 23, 2017. Admission Reason for Admission: Dehydration,Transaminitis Discharge Discharge Diagnosis / Problem: Elevated Liver enzymes, Urinary tract infection , bacteremia Discharge Goals Goal(s): Decrease discomfort, Improve function, Improve disease control Activity Recommendations Activity Limitations: resume your previous activity (as tolerated) . Instructions / Follow-Up Instructions / Follow-Up Follow up with your primary care provider Dr. Cruz on 03/28 @ 10:05 am Follow up with Gastro Dr. Mata in 2 weeks Check Liver enzymes in 1 week (your physician will order it) Complete course of antibiotic with flagyl and cefdinir Continue physical therapy Fall precaution Current Hospital Diet Patient's current hospital diet: Diabetes Type 2 Diet, Low Fat Diet Discharge Diet Recommended Diet: Diabetes Type 2 Diet Procedures Procedures Performed: ERCP Bilairy sphincterotomy Biliary stent Pending Studies Studies pending at discharge: no Laboratory Results Hemoglobin A1c Test 03/19/17 05:42 Range/Units Estimated Average Glucose 157 mg/dl Hemoglobin A1c 7.1 H 4.5-5.6 % Medical Emergencies . Who to Call and When: Medical Emergencies: If at any time you feel your situation is an emergency, please call 911 immediately. . Non-Emergent Contact Non-Emergency issues call your: Primary Care Provider Call Non-Emergent contact if: you have a fever, you have any medication questions . . "Provider Documentation" section prepared by Cary Crow. . VTE Core Measure Inpt VTE Proph given/why not?: SCD's Additional Copies To Malcolm Cruz M.D.
== END 2017-03-23 16:22 | disposition home health service (06) | DRG 445 ==
LOC: C.EDB 16:49 → C.2E 21:40 → ENRESERV 21:56 → C.MS2W 03-19 16:20
PROVIDERS: ADMIT Hospitalist; ATTEND Internal Medicine
PROC: 0F9C8ZZ Drainage of Ampulla of Vater, Via Natural or Artificial Opening Endoscopic (ICD-10-PCS; principal; 2017-03-22 13:00)
PROC: 0FB98ZX Excision of Common Bile Duct, Via Natural or Artificial Opening Endoscopic, Diagnostic (ICD-10-PCS; principal; 2017-03-22 13:00)
PROC: 0F798DZ Dilation of Common Bile Duct with Intraluminal Device, Via Natural or Artificial Opening Endoscopic (ICD-10-PCS; principal; 2017-03-22 13:00)
DX: K80.31 Calculus of bile duct with cholangitis, unspecified, with obstruction (principal); R78.81 Bacteremia; N39.0 Urinary tract infection, site not specified; N17.9 Acute kidney failure, unspecified; E87.1 Hypo-osmolality and hyponatremia; R74.0 Nonspecific elevation of levels of transaminase and lactic acid dehydrogenase [LDH]; B96.20 Unspecified Escherichia coli [E. coli] as the cause of diseases classified elsewhere; R74.8 Abnormal levels of other serum enzymes; B02.9 Zoster without complications; D69.6 Thrombocytopenia, unspecified; E11.9 Type 2 diabetes mellitus without complications; E03.9 Hypothyroidism, unspecified; F41.9 Anxiety disorder, unspecified; N28.1 Cyst of kidney, acquired; Z85.46 Personal history of malignant neoplasm of prostate; Z92.3 Personal history of irradiation; Z79.84 Long term (current) use of oral hypoglycemic drugs; Z79.899 Other long term (current) drug therapy; Z91.041 Radiographic dye allergy status; Z82.49 Family history of ischemic heart disease and other diseases of the circulatory system; Z83.3 Family history of diabetes mellitus; Z80.0 Family history of malignant neoplasm of digestive organs; Z80.42 Family history of malignant neoplasm of prostate

== ENCOUNTER 2017-04-15 09:52 | Observation (INO) | payer OTHER, MEDICARE ==
[2017-04-05 13:47] VITALS: BMI 26.0
--- NOTE | 2017-04-05 14:27 | PAT Medication Instructions ---
Service Date Apr 05, 2017. Current Home Medication List Alprazolam (Xanax), 0.5 MG PO HS PRN for Anxiety Calcium Carbonate (Tums), 2 TAB PO DAILY PRN for Indigestion Etodolac (Lodine), 1 TAB PO QAM Levothyroxine Sodium (Levothyroxine Sodium), 75 MCG PO QAM Metformin Hcl (Glucophage Er), 1 TAB PO BID Tamsulosin Hcl (Flomax), 0.4 MG PO HS Medication Instructions For Your Scheduled Surgery -Contact your surgeon for instructions for: Etodolac (Lodine), 1 TAB PO QAM - Hold the following medications 48 hours prior to surgery: Metformin Hcl (Glucophage Er), 1 TAB PO BID - Hold the following medications the morning of surgery: Calcium Carbonate (Tums), 2 TAB PO DAILY PRN for Indigestion - Take the following medications the morning of surgery with a sip of water: Levothyroxine Sodium (Levothyroxine Sodium), 75 MCG PO QAM Alprazolam (Xanax), 0.5 MG PO HS PRN for Anxiety (if needed) - Take the following medications as scheduled the night before surgery: Tamsulosin Hcl (Flomax), 0.4 MG PO HS Alprazolam (Xanax), 0.5 MG PO HS PRN for Anxiety (if needed) Calcium Carbonate (Tums), 2 TAB PO DAILY PRN for Indigestion (if needed) If you have any questions please call us at [phone] or [phone] or [phone]
[2017-04-05 15:19] LABS: BASO % 0.4 %; BASO ABS # 0.02 K/uL (0-0.2); EOS % 1.6 %; EOS ABS # 0.08 K/uL (0-0.5); HEMATOCRIT 44.8 % (42-52); HEMOGLOBIN 15.2 g/dL (14.0-18.0); IG# 0.04 K/uL (0.00-0.02); LYMPH % 26.8 %; LYMPH ABS # 1.38 K/uL (1.2-3.4); MEAN CELL VOLUME 95.5 fL (80-100); MEAN CORPUSCULAR HEMOGLOBIN 32.4 pg (25-34); MEAN CORPUSCULAR HGB CONC 33.9 g/dl (32-36); MEAN PLATELET VOLUME 10.2 fL (7.4-10.4); MONO % 16.9 %; MONO ABS # 0.87 K/uL (0.11-0.59); NEUT % 53.5 %; NEUT ABS # 2.75 K/uL (1.4-6.5); PLATELET COUNT 222 K/uL (130-400); RED CELL DISTRIBUTION WIDTH CV 14.2 % (11.5-14.5); RED CELL DISTRIBUTION WIDTH SD 49.4 fL (36.4-46.3); WHITE BLOOD COUNT 5.14 K/uL (4.8-10.8)
[2017-04-15] VITALS (8 sets, daily range): BP systolic 112–159; BP diastolic 61–81; PULSE 58–84; TEMP 36.3–36.9; O2SAT 91–97; BMI 26.0
[~2017-04-15] VITALS: Ht 167.6 cm; Wt 73.0 kg
[~2017-04-15 09:52] MED LIST changes: -ACET-1256 PO; +ATROPINE SULFATE 0.1 MG/ML 5ML SYR IV PRN; +CALC500C3 PO; +CEFAZOLIN 2000MG IV PUSH 15 ML IV SCH; +ETOD-146 PO; +EpHEDrine SULFATE INJ 50 MG/ML AMP IV PRN; +FENTANYL CITRATE INJ 50 MCG/1 ML 2 ML VIAL IV PRN; +HYDROmorphone INJ 1 MG/ML SYR IV PRN; +LABETALOL HCL IV 5 MG/ML 20ML IV PRN; +LACTATED RINGER'S 1000ML 1,000 ML IV SCH; +MEPERIDINE HCL 25 MG/ML CARP IV PRN; +METF750T PO; +ONDANSETRON INJ 2 MG/ML 2 ML VIAL IV PRN
[2017-04-15] MEDS ORDERED: FENTANYL CITRATE INJ 50 MCG/1 ML 2 ML VIAL ONE ×4 (10:13→14:03)
--- NOTE | 2017-04-15 10:30 | History & Physical Bridge Note ---
H&P Re-Evaluation Bridge Note: I have examined the patient, reviewed the History & Physical and in the interval since the performance of the History & Physical I have noted the following changes of clinical significance: No changes noted
[2017-04-15] MEDS ORDERED: HEPARIN SOD (PORCINE) 1000 UNIT/ML 10 ML VIAL ONE (10:43)
[2017-04-15] MEDS ORDERED: CEFAZOLIN SOD 1 GM VIAL ONE (10:43)
[2017-04-15] MEDS ORDERED: BUPIVACAINE 0.5 % 5 MG/1 ML MPF 30ML VIAL ONE (10:43)
[2017-04-15] MEDS ORDERED: ONDANSETRON INJ 2 MG/ML 2 ML VIAL ONE (12:06)
[2017-04-15] MEDS ORDERED: NEOSTIGMINE METHYLSULFATE 5 MG/5 ML SYR ONE (12:06)
[2017-04-15] MEDS ORDERED: PROPOFOL IV EMULSION 10 MG/ML 20 ML VIAL IV ONE (12:06)
[2017-04-15] MEDS ORDERED: GLYCOPYRROLATE INJ 0.2 MG/ML VIAL ONE (12:06)
[2017-04-15] MEDS ORDERED: DEXAMETHASONE SOD INJ 4 MG/ML VIAL ONE (12:06)
[2017-04-15] MEDS ORDERED: EpHEDrine SULFATE 50MG/5ML SYR ONE (12:06)
[2017-04-15] MEDS ORDERED: LIDOCAINE HCL 2% 2 ML VIAL (20MG/ML) ONE (12:06)
[2017-04-15] MEDS ORDERED: ESMOLOL HCL 10 MG/ML 10 ML VIAL ONE (12:26)
[2017-04-15] MEDS ORDERED: FLOSEAL HEMOSTATIC MATRIX 10ML TOP ONE (12:29)
--- NOTE | 2017-04-15 12:33 | [facility] Post Operative Brief Note ---
Immediate Operative Summary Operative Date Apr 15, 2017. Pre-Operative Diagnosis Biliary sludge Post-Operative Diagnosis same as preop with changes consistent with acute cholecystitis Procedure(s) Performed Laparoscopic cholecystectomy Surgeon Dr. Malcolm Lagunas Medical Accounts Receivable Specialist Surgeon(s) Kat Beckwith PA-C Estimated Blood Loss 25 cc Findings See Below See dictation Specimens A: Gallbladder and contents Drains None Anesthesia Type General Complication(s) none Disposition Disposition: Recovery Room / PACU
[2017-04-15] MEDS ORDERED: MoRPHine SULFATE 10 MG/ML CARP/VIAL IV PRN (12:45)
[2017-04-15] MEDS ORDERED: OXYCODONE/ACETAMINOPHEN 5-325 TAB PO PRN (12:45)
[2017-04-15] MEDS ORDERED: ONDANSETRON INJ 2 MG/ML 2 ML VIAL IV PRN (12:45)
[2017-04-15] MEDS ORDERED: ROCURONIUM BROMIDE 10 MG/ML 5 ML VIAL IV ONE (13:30)
[2017-04-15] MEDS ORDERED: IV FLUIDS COMPLETED PRN (13:45)
--- NOTE | 2017-04-15 13:46 | Anesthesiology Progress Note ---
Anesthesia Post Op Note Date & Time Apr 15, 2017 at 13:46 Vital Signs Pain Intensity: 3 Vital Signs Past 12 Hours Date Time Temp Pulse Resp B/P (MAP) Pulse Ox O2 Delivery O2 Flow Rate FiO2 04/15/17 13:25 36.0 63 18 137/56 95 Nasal Cannula 2 04/15/17 13:15 71 19 138/72 95 Nasal Cannula 2 04/15/17 13:05 69 18 143/75 96 Oxymask 10 04/15/17 12:55 71 14 158/73 97 Oxymask 10 04/15/17 12:46 36.1 82 12 167/79 97 Oxymask 10 04/15/17 10:10 36.4 64 20 159/61 (93) 97 Room Air Notes Mental Status: alert / awake / arousable, participated in evaluation Pt Amnestic to Procedure: Yes Nausea / Vomiting: adequately controlled Pain: adequately controlled Airway Patency, RR, SpO2: stable & adequate BP & HR: stable & adequate Hydration State: stable & adequate Anesthetic Complications: no major complications apparent
[2017-04-15] MEDS ORDERED: D5W AND 1/2NSS + 20MEQ KCL 1,000 ML IV SCH (16:45)
[2017-04-15] MEDS ORDERED: NURSING VERBAL MED ORDER ONE (17:30)
[2017-04-15] MEDS ORDERED: LACTATED RINGER'S 1000ML 1,000 ML IV SCH (18:30)
--- NOTE | 2017-04-15 18:47 | OPERATIVE REPORT ---
DATE OF OPERATION: 04/15/2017 PREOPERATIVE DIAGNOSES: Cholelithiasis, history of choledocholithiasis. POSTOPERATIVE DIAGNOSES: Same. PROCEDURE: Laparoscopic cholecystectomy. SURGEON: Dr. Lagunas. OVERHEAD CLEANER MAINTAINER: Kat Beckwith PA-C. FINDINGS: The patient had had a previous ERCP with stent placement. The stent was still in place. Laparoscopic cholecystectomy was then performed. The gallbladder wall was thickened. There was a lot of edema. There were adhesions of the omentum to the body and infundibulum area. The cystic duct was mildly dilated. The gallbladder was densely adherent to the liver. The liver was of normal size and contour, the visible bowel appeared normal. TECHNIQUE: The patient was given a general anesthetic and the area was prepped and draped in usual sterile fashion. A small transverse incision was made below the umbilicus, carried down through the subcutaneous tissue to the fascia which was grasped with 2 Kenny clamps and incised between. The peritoneum was identified, incised, and introducer was placed bluntly. The abdomen was then insufflated to a pressure of 15 mmHg with carbon dioxide. The upper midline, midclavicular and anterior axillary introducers were placed under direct vision through small skin incisions. We attempted to grasp the gallbladder, but because the wall was thickened, it could not be grasped and so the drainage needle was then passed under direct vision into the fundus of the gallbladder which was then drained. I was then able to grasp the gallbladder and elevate it. The adhesions to the body and infundibulum area were taken down using blunt and cautery dissection where appropriate. When I got down to the infundibulum, the peritoneum over the infundibulum and to the lateral and medial sides was quite thickened. I had to open that, peel it down toward the common bile duct and then divided the attachments of the infundibulum laterally. I then worked into the triangle of Calot and dissected the triangle of Calot. There was a lot of thickened peritoneum and thickened lymphatics around the cystic duct. These were individually grasped, cauterized and peeled toward the common bile duct. That allowed me better access into the triangle of Calot and the cystic artery was identified. It was isolated, clamped 3 times proximally and once near the gallbladder and divided. That allowed much better mobility of the infundibulum and I was then able to establish a plane by peeling it and blunt dissection behind the cystic duct and was able to identify the cystic duct--gallbladder junction. I further dissected additional tissue away from the anterior and medial wall of the cystic duct. I then placed 2 clips on the proximal cystic duct and was placing a third clip near the cystic duct-gallbladder junction when the cystic duct fractured and somewhat retracted into the thickened tissues toward the common bile duct. I was able to identify where the edge of the duct was located and was able to place a clip across it. I did not want to dissect that cystic duct away from the other tissues with concern for not being able to identify the common bile duct and I did not want to injure the common bile duct and tried to dissect out the cystic duct. Considering that there was already a stent in place, I decided to leave the 1 clip present and then placed a drain. Once the duct was divided, I then dissected the gallbladder off the liver bed, placed into an Endobag and brought it out through the upper midline incision. In dissecting the gallbladder away from the liver, there was not a good plane of dissection. I was eventually able to continue this operation and finish the division. Once the gallbladder was removed from the abdomen within the bag, I then replaced that introducer and elevated the edge of the liver. There was a lot of oozing from a very significant amount of raw surface of the liver and the gallbladder bed and that required cautery, but I was eventually able to control all of the oozing. The subdiaphragmatic and subhepatic spaces were irrigated and irrigation removed and that was repeated until the return was clear. The gallbladder bed of the liver was again inspected. The previously placed clips were intact. There did not appear to be a bile leak. The gallbladder bed of the liver was then filled with FloSeal. A 10 mm Balbir-Frank drain was cut to size and brought out through the anterior axillary introducer site and placed in the subhepatic space. It was secured with 3-0 nylon. The gas was allowed to escape. The umbilical and upper midline introducer sites were closed with interrupted 0 Vicryl and skin of all the incisions was closed with 4-0 Monocryl in either an interrupted or running subcuticular fashion. Skin was anesthetized with 0.5% Marcaine. The skin was cleansed, dried, benzoin placed, Steri-Strips applied. Estimated blood loss was 25 mL. Sponge, needle and instrument counts were correct prior to closure. The patient tolerated the surgical procedure without complication and was transferred to recovery. I attest to the content of the Intraoperative Record and any orders documented therein. Any exception s are noted below.
[2017-04-15] MEDS: METFORMIN HCL 500 MG TABCR PO SCH (19:33)
[2017-04-15] MEDS ORDERED: TAMSULOSIN HCL 0.4 MG CAP PO SCH (21:00)
[2017-04-16] MEDS ORDERED: NURSING VERBAL MED ORDER ONE ×2 (01:00→11:45)
[2017-04-16] MEDS ORDERED: CALCIUM CARBONATE 500 MG CHEWABLE PO PRN (01:15)
[2017-04-16 03:20] VITALS: BP 108/53; PULSE 57; TEMP 36.7; O2SAT 95
[2017-04-16] MEDS ORDERED: LEVOTHYROXINE 75 MCG TAB PO SCH (06:00)
[2017-04-16 07:45] LABS: BASO % 0.1 %; BASO ABS # 0.01 K/uL (0-0.2); EOS % 0.2 %; EOS ABS # 0.02 K/uL (0-0.5); HEMATOCRIT 43.2 % (42-52); HEMOGLOBIN 15.2 g/dL (14.0-18.0); IG# 0.04 K/uL (0.00-0.02); LYMPH % 14.6 %; MEAN CELL VOLUME 92.3 fL (80-100); MEAN CORPUSCULAR HEMOGLOBIN 32.5 pg (25-34); MEAN CORPUSCULAR HGB CONC 35.2 g/dl (32-36); MEAN PLATELET VOLUME 9.6 fL (7.4-10.4); MONO ABS # 1.07 K/uL (0.11-0.59); NEUT % 71.6 %; NEUT ABS # 5.86 K/uL (1.4-6.5); PLATELET COUNT 180 K/uL (130-400); RED CELL DISTRIBUTION WIDTH CV 13.5 % (11.5-14.5); RED CELL DISTRIBUTION WIDTH SD 45.3 fL (36.4-46.3)
[2017-04-16] MEDS: METFORMIN HCL 500 MG TABCR PO SCH (07:48)
[2017-04-16 08:01] VITALS: BP 119/64; PULSE 56; TEMP 36.5; O2SAT 95
[2017-04-16 08:17] LABS: ALBUMIN 2.8 gm/dl (3.4-5.0); CREATININE 0.88 mg/dl (0.60-1.40); POTASSIUM 4.8 mmol/L (3.5-5.1)
[2017-04-16 08:20] LABS: TOTAL PROTEIN 6.2 gm/dl (6.4-8.2)
--- NOTE | 2017-04-16 08:41 | Anesthesiology Progress Note ---
Anesthesia Post Op Note Date & Time Apr 16, 2017 at 08:41 Vital Signs Pain Intensity: 0.0 Vital Signs Past 12 Hours Date Time Temp Pulse Resp B/P (MAP) Pulse Ox O2 Delivery O2 Flow Rate FiO2 04/16/17 08:01 36.5 56 18 119/64 (82) 95 Room Air 04/16/17 08:00 Room Air 04/16/17 03:20 36.7 57 14 108/53 (71) 95 Room Air 04/15/17 23:45 95 Room Air 04/15/17 23:05 36.9 58 16 112/64 (80) 95 Room Air Notes Mental Status: alert / awake / arousable Pt Amnestic to Procedure: Yes Nausea / Vomiting: adequately controlled Pain: adequately controlled Airway Patency, RR, SpO2: stable & adequate BP & HR: stable & adequate Hydration State: stable & adequate Anesthetic Complications: no major complications apparent
--- NOTE | 2017-04-16 11:16 | Surgery Progress Note ---
Surgery Progress Note Date of Service Apr 16, 2017. Subjective Post OP Day: 1 (s/p laparoscopic cholecystectomy with placement of DIANN drain) + feeling well, + pain controlled, + diet (diabetic diet), No complaints, No chest pain, No SOB, No bowel movement, No flatus, No nausea, No vomiting Objective Vital Signs: Date Time Temp Pulse Resp B/P (MAP) Pulse Ox O2 Delivery O2 Flow Rate FiO2 04/16/17 08:01 36.5 56 18 119/64 (82) 95 Room Air 04/16/17 08:00 Room Air 04/16/17 03:20 36.7 57 14 108/53 (71) 95 Room Air 04/15/17 23:45 95 Room Air 04/15/17 23:05 36.9 58 16 112/64 (80) 95 Room Air 04/15/17 18:30 36.6 84 18 145/76 (99) 92 Room Air 04/15/17 17:30 36.7 77 18 136/70 (92) 91 Room Air 04/15/17 16:30 36.5 64 18 139/67 (91) 92 Room Air 04/15/17 16:00 36.5 64 16 151/81 (104) 92 Room Air 04/15/17 15:30 36.3 64 18 124/70 (88) 95 Nasal Cannula 2.0 04/15/17 15:30 95 Nasal Cannula 2.0 04/15/17 15:30 Nasal Cannula 2.0 04/15/17 15:15 80 18 145/78 97 Nasal Cannula 2 04/15/17 15:00 89 19 164/84 97 Nasal Cannula 2 04/15/17 14:45 83 12 147/82 97 Nasal Cannula 2 04/15/17 14:30 79 15 161/88 98 Nasal Cannula 2 04/15/17 14:15 71 14 153/79 97 Nasal Cannula 2 04/15/17 14:00 52 12 130/42 97 Nasal Cannula 2 04/15/17 13:45 57 29 132/58 97 Nasal Cannula 2 04/15/17 13:35 54 20 136/53 97 Nasal Cannula 2 04/15/17 13:25 36.0 63 18 137/56 95 Nasal Cannula 2 04/15/17 13:15 71 19 138/72 95 Nasal Cannula 2 04/15/17 13:05 69 18 143/75 96 Oxymask 10 04/15/17 12:55 71 14 158/73 97 Oxymask 10 04/15/17 12:46 36.1 82 12 167/79 97 Oxymask 10 Physical Exam: DIANN drainage (serosanguineous, slightly bloody) General Appearance: WD/WN, no apparent distress Head: normocephalic, atraumatic Respiratory/Chest: no respiratory distress, no accessory muscle use Abdomen: normal bowel sounds, soft, no organomegaly, no pulsatile mass, + tenderness (at incision sites and RUQ, appropriate post op) Incision(s): clean, dry (dressings clean and dry, incisions not inspected) Laboratory Results: Results Past 24 Hours Test 04/15/17 12:49 04/16/17 07:32 04/16/17 07:58 Range/Units Bedside Glucose 148 138 70-99 mg/dl White Blood Count 8.20 4.8-10.8 K/uL Red Blood Count 4.68 4.7-6.1 M/uL Hemoglobin 15.2 14.0-18.0 g/dL Hematocrit 43.2 42-52 % Mean Corpuscular Volume 92.3 80-100 fL Mean Corpuscular Hemoglobin 32.5 25-34 pg Mean Corpuscular Hemoglobin Concent 35.2 32-36 g/dl Platelet Count 180 130-400 K/uL Mean Platelet Volume 9.6 7.4-10.4 fL Neutrophils (%) (Auto) 71.6 % Lymphocytes (%) (Auto) 14.6 % Monocytes (%) (Auto) 13.0 % Eosinophils (%) (Auto) 0.2 % Basophils (%) (Auto) 0.1 % Neutrophils # (Auto) 5.86 1.4-6.5 K/uL Lymphocytes # (Auto) 1.20 1.2-3.4 K/uL Monocytes # (Auto) 1.07 0.11-0.59 K/uL Eosinophils # (Auto) 0.02 0-0.5 K/uL Basophils # (Auto) 0.01 0-0.2 K/uL RDW Standard Deviation 45.3 36.4-46.3 fL RDW Coefficient of Variation 13.5 11.5-14.5 % Immature Granulocyte % (Auto) 0.5 % Immature Granulocyte # (Auto) 0.04 0.00-0.02 K/uL Sodium Level 134 136-145 mmol/L Potassium Level 4.8 3.5-5.1 mmol/L Chloride Level 99 98-107 mmol/L Carbon Dioxide Level 28 21-32 mmol/L Anion Gap 7.0 3-11 mmol/L Blood Urea Nitrogen 12 7-18 mg/dl Creatinine 0.88 0.60-1.40 mg/dl Est Creatinine Clear Calc Drug Dose 55.4 ml/min Estimated GFR () 90.8 Estimated GFR (Non- 78.3 BUN/Creatinine Ratio 13.8 10-20 Random Glucose 156 70-99 mg/dl Calcium Level 9.0 8.5-10.1 mg/dl Total Bilirubin 1.2 0.2-1 mg/dl Aspartate Amino Transf (AST/SGOT) 55 15-37 U/L Alanine Aminotransferase (ALT/SGPT) 42 12-78 U/L Alkaline Phosphatase 123 45-117 U/L Total Protein 6.2 6.4-8.2 gm/dl Albumin 2.8 3.4-5.0 gm/dl Globulin 3.4 2.5-4.0 gm/dl Albumin/Globulin Ratio 0.8 0.9-2 Assessment & Plan POD # 1 s/p laparoscopic cholecystectomy with placement of DIANN drain. - afebrile - no leukocytosis - T. Bili 1.2 however last labs on 03/23 showed t. bili at 1.2. Slightly elevated LFTs however improved compared to 03/23 labs - abdominal pain controlled - urinating without difficulty - diann with serosanguineous/bloody output, no bile. 80 cc yesterday, 15 cc last shift Plan: Continue current pain management Continue diabetic diet Encouraged OOB to chair and ambulation Continue DIANN drain to bulb suction Diann drain teaching prior to discharge Discharge this afternoon. F/u surgical office next Saturday Dr. Lagunas has seen patient, agrees with above
--- NOTE | 2017-04-16 11:39 | Discharge Instructions ---
Discharge Instructions Date of Service Apr 16, 2017. Admission Reason for Admission: Biliary Sludge Discharge Discharge Diagnosis / Problem: acute cholecystitis Discharge Goals Goal(s): Decrease discomfort, Improve function Activity Recommendations Activity Limitations: per Instructions/Follow-up section No heavy lifting over 20 pounds for 2 weeks No strenuous activity until cleared by surgeon No submerging incisions underwater for 2 weeks (no bathing, swimming, or hot tubs) No driving while taking narcotic pain medication or until you are pain free . Instructions / Follow-Up Instructions / Follow-Up You may shower in 24 hours. Remove outer dressing and replace as needed. Leave steri strips on incisions for 7 days and then remove. They may fall off on their own that is okay. Walking and light activity is encouraged to prevent blood clots from forming in legs. You will be given narcotic pain medication (Percocet) as needed for moderate to severe pain. You may take extra strength Tylenol/Ibuprofen as needed for mild pain. Be cautious, if you are still taking Percocet supplement with Ibuprofen as Percocet has Tylenol in it. If you are no longer requiring Percocet then you may take extra strength Tylenol. Follow-up in surgical office Next Saturday04/23/17 at 01:00 please call office at [phone] if you have any questions or concerns Remember to record PRASHANT drain output daily. Current Hospital Diet Patient's current hospital diet: Diabetes Type 2 Diet Discharge Diet Recommended Diet: Diabetes Type 2 Diet Procedures Procedures Performed: Laparoscopic cholecystectomy Pending Studies Studies pending at discharge: yes List of pending studies: gallbladder pathology- will be reviewed at follow up visit Laboratory Results Hemoglobin A1c Test 03/19/17 05:42 Range/Units Estimated Average Glucose 157 mg/dl Hemoglobin A1c 7.1 H 4.5-5.6 % Medical Emergencies . Who to Call and When: Medical Emergencies: If at any time you feel your situation is an emergency, please call 911 immediately. . Non-Emergent Contact Non-Emergency issues call your: Primary Care Provider, Surgeon Call Non-Emergent contact if: you have a fever, temperature is above 101, your pain is not controlled, your pain is worsening, your pain is unusual for you, wound has increased drainage, wound has increased redness, wound has increased pain . "Provider Documentation" section prepared by Kat Beckwith. . VTE Core Measure Inpt VTE Proph given/why not?: Treatment not indicated [place] Drug Monitoring Program Search Results: patient reviewed within database, no issues identified
[2017-04-16] MEDS ORDERED: OXYC-57 PO (11:44)
[2017-04-16 13:14] VITALS: Ht 167.6 cm; Wt 73.0 kg
[2017-04-16 13:48] VITALS: BP 119/64; PULSE 56; TEMP 36.5; O2SAT 95
== END 2017-04-16 15:20 | disposition home or self-care (01) ==
LOC: C.ACU 09:52 → C.MSW 12:39 → ENRESERV 14:39
PROVIDERS: ADMIT Surgery; ATTEND Surgery
DX: K81.1 Chronic cholecystitis (principal); E03.9 Hypothyroidism, unspecified; E11.9 Type 2 diabetes mellitus without complications; F41.9 Anxiety disorder, unspecified; F32.9 Major depressive disorder, single episode, unspecified; Z91.041 Radiographic dye allergy status; Z85.46 Personal history of malignant neoplasm of prostate; Z96.653 Presence of artificial knee joint, bilateral; Z90.89 Acquired absence of other organs; Z98.890 Other specified postprocedural states; M19.90 Unspecified osteoarthritis, unspecified site; Z86.73 Personal history of transient ischemic attack (TIA), and cerebral infarction without residual deficits; Z79.899 Other long term (current) drug therapy; Z83.3 Family history of diabetes mellitus; Z80.0 Family history of malignant neoplasm of digestive organs

== ENCOUNTER 2021-04-26 14:38 | Inpatient (IN) ==
[2021-04-26] MEDS ORDERED: SODIUM CHLORIDE 0.9% 1000ML 1,000 ML IV SCH (15:30)
[2021-04-26] MEDS ORDERED: SODIUM CHLORIDE 0.9% 500 ML IV SCH (15:30)
[2021-04-26 15:31] LABS: Appearance Urine Clear (Clear); Bacteria Urine Automated Negative (Negative); Bilirubin Urine Negative (Negative); Blood Urine Negative (Negative); Color Urine Dark Yellow; Glucose Urine UA 2+ (Negative); Ketones Urine 2+ (Negative); Leukocyte Esterase Urine Negative (Negative); Nitrite Urine Negative (Negative); Protein Urine 1+ (Negative); Specific Gravity Urine 1.022 (1.000-1.030); Urobilinogen Urine Negative (Negative)
[2021-04-26 16:05] LABS: Basophils # (auto) 0.01 K/uL (0-0.2); Basophils % (auto) 0.1 %; Hematocrit (blood only) 46.5 % (42-52); Hemoglobin 16.5 g/dL (14.0-18.0); Immature Granulocytes # (auto) 0.04 K/uL (0.00-0.02); Immature Granulocytes % (auto) 0.5 %; Lymphocytes # (auto) 1.12 K/uL (1.2-3.4); Mean Corpuscular Hemoglobin 32.9 pg (25-34); Mean Corpuscular Hgb Conc 35.5 g/dL (32-36); Mean Corpuscular Volume 92.6 fL (80-100); Mean Platelet Volume 10.7 fL (7.4-10.4); Monocytes # (auto) 0.91 K/uL (0.11-0.59); Monocytes % (auto) 12.2 %; Neutrophils # (auto) 5.39 K/uL (1.4-6.5); Neutrophils % (auto) 72.2 %; Platelet Count 217 K/uL (130-400); RDW Coefficient of Variation 12.7 % (11.5-14.5); Red Blood Count 5.02 M/uL (4.7-6.1); White Blood Count 7.47 K/uL (4.8-10.8)
--- NOTE | 2021-04-26 16:07 | XRay Report ---
XR chest 1V portable CLINICAL HISTORY: weakness COMPARISON STUDY: Chest radiograph March 18, 2017. FINDINGS: Lung volumes are normal. Right infrahilar triangular density is noted. There is no pneumoth orax or pleural effusion. Cardiac size is normal. Mediastinal contours are normal. There is no eviden ce for pulmonary edema. IMPRESSION: Right infrahilar triangular shaped density. This likely reflects pulmonary vessels howev er airspace disease or a pulmonary nodule could appear similar. Follow-up PA and lateral chest radiog raphs are recommended. ACT 112: Negative or not required by law. Electronically signed by: Ankit White M.D. 04/26/2021 4:06 PM
[2021-04-26 16:16] LABS: Albumin Globulin Ratio 1.5 (0.9-2); Albumin Level 3.7 gm/dl (3.4-5.0); BUN Creatinine Ratio 27.8 (10-20); Bilirubin,Total 1.6 mg/dl (0.2-1.0); Calcium 8.5 mg/dl (8.5-10.1); Est GFR (African American) 87.5 ml/min; Est GFR (Non-African American) 75.5 ml/min; Globulin 2.5 gm/dl (2.5-4.0); Magnesium 1.8 mg/dl (1.7-2.4); Potassium 3.9 mmol/L (3.5-5.1); Total Protein 6.2 gm/dl (6.0-8.3)
[2021-04-26] MEDS ORDERED: PIPERACILL/TAZOBAC CONSULT ACTIVE PRN (16:30)
[2021-04-26] MEDS ORDERED: PIPERACILLIN/TAZOBACTAM 4.5 GM/120 ML BAG IV ONE (16:30)
[2021-04-26] MEDS ORDERED: SODIUM CHLORIDE 0.9% 1000ML 1,000 ML IV ONE (16:30)
[2021-04-26 16:46] LABS: Thyroid Stimulating Hormone 10.254 uIu/ml (0.300-4.500)
[2021-04-26] MEDS ORDERED: AMPICILLIN/SULBACTAM SOD 3,000 MG in 0.9 % SODIUM CHLORIDE 100 ML IV ONE (17:00)
[2021-04-26 17:20] LABS: T4 Free Thyroxine 0.51 ng/dl (0.61-1.60)
--- NOTE | 2021-04-26 17:39 | CT Scan Report ---
CT head/brain wo con CLINICAL HISTORY: 89 years-old Male with AMS. Acutely altered mental status TECHNIQUE: Multiple axial CT images of the head were obtained without contrast. A dose lowering tech nique was utilized adhering to the principles of ALARA. CT DOSE: 614.27 mGy.cm COMPARISON: Head CT 12/19/2016 FINDINGS: No acute intracranial hemorrhage, midline shift, intracranial mass, hydrocephalus, territorial ischem ia or abnormal extra-axial collection. 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 White matter hypodensities suggest chronic microvascular ischemic disease. Cerebral vascular calci fications. The calvarium is intact. There is severe near complete opacification of the right maxillary sinus. T he mastoid air cells and middle ear cavities are clear. Mild polypoid mucosal thickening of the left maxillary sinus. IMPRESSION: No acute intracranial abnormality. ACT 112: Negative or not required by law. The above report was generated using voice recognition software. It may contain grammatical, syntax o r spelling errors. Electronically signed by: Albin Cordova M.D. 04/26/2021 5:37 PM
--- NOTE | 2021-04-26 18:20 | CT Scan Report ---
ABDOMEN AND PELVIS CT WITHOUT CONTRAST CT DOSE: 291.87 mGy.cm HISTORY: Acute nausea with vomiting and altered mental status vomiting, AMS TECHNIQUE: Multiaxial CT images of the abdomen and pelvis were performed without contrast. A dose lo wering technique was utilized adhering to the principles of ALARA. COMPARISON STUDY: CT abdomen and pelvis 03/18/2017 FINDINGS: Cardiomegaly with coronary artery calcifications. Trace pleural effusions with bibasilar dependent co nsolidation. Additional ill-defined consolidative opacities are noted within the right middle lobe. B ibasilar mucous plugging. Respiratory motion artifact and lack of contrast limits the study. No pneum atosis or pneumoperitoneum. The unenhanced spleen, moderately atrophic pancreas and adrenal glands are unremarkable. Cholecystect génesis with mild pneumobilia. The unenhanced liver is unremarkable. Bilateral renal calcifications measu re up to 7 mm on the left and 4 mm on the right. No ureteral calculi or hydronephrosis. 9.9 x 8.3 cm left renal cyst. A Smith catheter is noted within the urinary bladder lumen. Moderate urinary bladder wall thickening. Intraluminal air is likely secondary to instrumentation. Prostamegaly with brachial therapy seeds. Extensive atherosclerosis of the abdominal aorta without aneurysm. Fusiform dilation of the bilateral common iliac arteries measures up to 1.9 cm on the right and 1.6 cm on the left. The re is no adenopathy. No bowel obstruction. Mild wall thickening of the rectum with partial distention and mild perirectal stranding. Extensive colonic diverticulosis without acute diverticulitis. Mild to moderate fecal rete ntion. Normal appendix. Unremarkable soft tissues. Degenerative changes of the spine, pelvis and hips . There is a suggested chondroid lesion of the right femoral head. Healed chronic fracture deformity of the right pubic ramus. Chronic appearing L1 superior endplate compression deformity without retrop ulsion. IMPRESSION: 1. Trace pleural effusions with dependent bibasilar consolidation and mucous plugging. Correlate clin ically to exclude aspiration pneumonia. 2. No bowel obstruction. 3. Mild rectal wall thickening with perirectal stranding which may represent a mild proctitis. 4. Extensive colonic diverticulosis without acute diverticulitis. 5. Decompressed urinary bladder with wall thickening. Correlate with urinalysis. 6. Bilateral renal calcifications, likely vascular in origin. Nonobstructing renal calculi could appe ar similarly. 7. Additional findings as above. ACT 112: Negative or not required by law. The above report was generated using voice recognition software. It may contain grammatical, syntax o r spelling errors. Electronically signed by: Albin Cordova M.D. 04/26/2021 6:19 PM
[2021-04-26] MEDS ORDERED: cefTRIAXone SODIUM 1,000 MG in DEXTROSE 5% 50 ML IV SCH (18:30)
--- NOTE | 2021-04-26 18:31 | Emergency Department Note ---
Impression & Plan Hypoxia, Hypothyroidism, Aspiration pneumonia, Acute dehydration ED Provider Note INFORMANT: Patient ED PROVIDER(S): Sam Reno MD CHIEF COMPLAINT: Altered mental status PLAN: Disposition: Admitted Condition: Guarded Outpatient prescription management: none Referral: None MEDICAL DECISION MAKING: Patient presented to the emergency department because of altered mental status. He was found to be hypoxic. I presented to the room quickly as the nurses made him a priority patient due to the hypoxia. He did require significant supplemental oxygen by mask He clinically appeared to be dehydrated. IV fluids were administered. The patient had a chest x-ray that was concerning for possible pneumonia. IV Unasyn was administered after blood cultures. Lactate was mildly elevated. Patient CBC was unremarkable. Chemistry panel consistent with dehydration. Mild elevation of glucose. Elevation of LFTs is present but is chronic. Additional fluids were given. The patient underwent head CT imaging which was negative for acute process. CT scan of the abdomen and pelvis revealed basilar infiltrates supporting the possibility of aspiration. Patient's urinalysis was not overly concerning for infection. Discussed this with the patient and the son. Patient will need further management in the hospital. [facility] Abel morales will be admitted under Dr. Dye. Triage Nursing notes reviewed and agree them. Vital Signs: reviewed and remarkable for hypoxia Differential diagnosis: Infection, hypoglycemia, electrolyte abnormalities, overdose, toxicologic, cardiac sources, intracerebral event, neurologic, trauma, as well as other pathologies. Diagnostics interpreted by me: ECG: Twelve-lead ECG reveals sinus rhythm first-degree block at 74 bpm. Right bundle branch block present. Lateral Q waves present. No ST elevation or depression. Normal axis. Cardiac Monitoring: Cardiac monitoring ordered by me: The patient was placed on continuous cardiac monitoring and observed. It revealed a normal sinus rhythm at 70 beats per minute without ectopy or evidence of dysrhythmia. Imaging studies: Chest x-ray and CT scans as noted above. HPI: The patient is a 89 year old male who presents to the Emergency Room due to AMS. This started over the last few days and is worsening prednisone. He is generally weak as well.. The patient also notes the following associated symptoms, vomiting and diarrhea over the weekend but that had resolved. The family was sick with similar symptoms. The patient has been given no medicati on for relieving factors. Patient denies any chest pain, headache, breathing difficulty, or abdominal pain. History is limited secondary to the patient's altered mental status and medical illness. ROS: See above HPI for pertinent positives & negatives. Limited secondary to altered mental status. PAST MEDICAL HISTORY:See Below , diabetes, prostate cancer PAST SURGICAL HISTORY:See Below, cholecystectomy FAMILY HISTORY:See Below SOCIAL HISTORY:See Below, lives with family HOME MEDICATIONS:See Below ALLERGIES:See Below VITALS:See Below PHYSICAL EXAMINATION: GENERAL: Very sleepy but arousable. Dehydrated appearing, in no distress HENT: Normocephalic, atraumatic. Oropharynx unremarkable. EYES: Normal conjunctiva. Sclera non-icteric. NECK: Inspection normal. Non-tender. Supple. No nuchal rigidity. FROM. No masses. RESPIRATORY: Clear to auscultation. No wheezes. No rales. Normal respiratory effort. CARDIAC: Normal rate. Normal rhythm. No murmurs. No rubs. Extremities warm and well perfused. Pulses equal. No JVD. GI: Soft, non-distended. No tenderness to palpation. No rebound or guarding. No masses. RECTAL: Deferred. MUSCULOSKELETAL: Atraumatic. Chest examination reveals no tenderness. The back is symmetrical on inspection without obvious abnormality. There is no CVA tenderness to palpation. No joint edema. LOWER EXTREMITIES: Calves are equal size bilaterally and non-tender. No edema. No discoloration. NEURO: Altered sensorium. Speech is slow but not slurred. Very weak in the lower and upper extremities. SKIN: No rash or jaundice noted. CRITICAL CARE: I have personally spent greater than 35 minutes of critical care time in the direct management of this patient. This includes bedside care, interpretation of diagnostic studies, and testing, discussion with consultants, patient, and family members, and other required patient management activities. These minutes are in excess of all separately billable procedures. Sam Reno MD Past Med/Surg History Medical History Diabetes Hard of hearing History of fall HX FALLS YEARS AGO History of prostate cancer DX YRS AGO - HX SEEDS IMPLANTED Hypothyroid Tremor of both hands HEREDITARY Surgical History History of brachytherapy SEEDS IMPLANTED FOR PROSTATE CA History of cholecystectomy History of colonoscopy History of tonsillectomy Family History Other Family history of diabetes mellitus Social History Smoking Status: Smoker, status unknown Hx Alcohol Use: No Preferred Language: Malawian Communication Ability: Effective Infrastructure Project Manager Required: No Beliefs That Will Affect Care: None Current Living Situation: Spouse Feels Safe at Home: Yes Assistive Devices: Cane, Denture - Upper, Glasses and Hearing Aid - Bilateral Allergies Allergies Allergy/AdvReac Type Severity Reaction Status Date / Time Iodinated Contrast Media Allergy Intermediate HIVES Verified 04/26/21 17:38 iodine Allergy Intermediate ALLERGY TO Verified 04/26/21 17:38 IVP DYE/HIVES Home Meds Home Medications Medication Instructions Recorded Confirmed alprazolam 0.5 mg tablet 0.5 mg PO TID PRN 01/08/20 04/26/21 glipizide 10 mg tablet 10 mg PO BID 01/08/20 04/26/21 metformin 500 mg tablet 1,000 mg PO BID 01/08/20 04/26/21 tamsulosin 0.4 mg capsule 0.4 mg PO HS 01/08/20 04/26/21 dulaglutide 4.5 mg/0.5 mL 4.5 mg SUBCUT WK 04/26/21 04/26/21 subcutaneous pen injector (Trulicity) escitalopram oxalate 10 mg tablet 10 mg PO DAILY 04/26/21 04/26/21 etodolac 300 mg capsule 300 mg PO BID 04/26/21 04/26/21 levothyroxine 100 mcg tablet 100 mcg PO DAILYBB 04/26/21 04/26/21 omeprazole 20 mg capsule,delayed 20 mg PO DAILYBB 04/26/21 04/26/21 release Results & Data (ED) Vital Signs Vital Signs - 24 hr 04/26/21 15:12 04/26/21 15:19 04/26/21 15:23 Temperature 36.7 C Temperature Source Axillary Pulse Rate 71 Pulse Rate [Apical] 74 Pulse Rhythm [Apical] Regular Respiratory Rate 17 Respiratory Depth Shallow Blood Pressure 135/72 Blood Pressure [Left Arm] 135/72 Blood Pressure Mean 93 Blood Pressure Mean [Left Arm] 93 Pulse Oximetry 90 90 90 Oxygen Delivery Method Oxymask Oxymask Oxymask Oxygen Flow Rate 10 10 10 Sepsis New/Unexplained Change in Mental Status Yes Sepsis Action Taken by Nursing No Action Required 04/26/21 17:51 Temperature Temperature Source Pulse Rate Pulse Rate [Apical] 71 Pulse Rhythm [Apical] Regular Respiratory Rate 16 Respiratory Depth Normal Blood Pressure Blood Pressure [Left Arm] 135/70 Blood Pressure Mean Blood Pressure Mean [Left Arm] 91 Pulse Oximetry 96 Oxygen Delivery Method Oxymask Oxygen Flow Rate 8 Sepsis New/Unexplained Change in Mental Status Sepsis Action Taken by Nursing Laboratory Data Result diagrams: 04/26/21 14:06 04/26/21 14:06 Lab Results 04/26/21 04/26/21 04/26/21 Range/Units 14:06 14:06 14:06 WBC 7.47 (4.8-10.8) K/uL RBC 5.02 (4.7-6.1) M/uL Hgb 16.5 (14.0-18.0) g/dL Hct 46.5 (42-52) % MCV 92.6 (80-100) fL MCH 32.9 (25-34) pg MCHC 35.5 (32-36) g/dL RDW Std Deviation 43.0 (36.4-46.3) fL RDW Coeff of Rosa 12.7 (11.5-14.5) % Plt Count 217 (130-400) K/uL MPV 10.7 H (7.4-10.4) fL Immature Gran % (Auto) 0.5 % Neut % (Auto) 72.2 % Lymph % (Auto) 15.0 % [place] % (Auto) 12.2 % Eos % (Auto) 0.0 % Baso % (Auto) 0.1 % Neut # (Auto) 5.39 (1.4-6.5) K/uL Lymph # (Auto) 1.12 L (1.2-3.4) K/uL [place] # (Auto) 0.91 H (0.11-0.59) K/uL Eos # (Auto) 0.00 (0-0.5) K/uL Baso # (Auto) 0.01 (0-0.2) K/uL Immature Gran # (Auto) 0.04 H (0.00-0.02) K/uL Sodium 134 L (136-145) mmol/L Potassium 3.9 (3.5-5.1) mmol/L Chloride 97 L (98-107) mmol/L Carbon Dioxide 24 (21-32) mmol/L Anion Gap 13 H (3-11) BUN 25 H (6-23) mg/dl Creatinine 0.90 (0.6-1.4) mg/dl Est Cr Clr Drug Dosing 52.0 ml/min Est GFR ( Amer) 87.5 ml/min Est GFR (Non-Af Amer) 75.5 ml/min BUN/Creatinine Ratio 27.8 H (10-20) Glucose 212 H (70-99(Fasting)) mg/dl POC Glucose (70-99) mg/dl Lactate (0.4-2.0) mmol/L Calcium 8.5 (8.5-10.1) mg/dl Magnesium 1.8 (1.7-2.4) mg/dl Total Bilirubin 1.6 H (0.2-1.0) mg/dl AST 43 H (13-39) U/L ALT 27 (7-52) U/L Alkaline Phosphatase 71 (34-104) U/L Troponin I Cancelled Total Protein 6.2 (6.0-8.3) gm/dl Albumin 3.7 (3.4-5.0) gm/dl Globulin 2.5 (2.5-4.0) gm/dl Albumin/Globulin Ratio 1.5 (0.9-2) TSH 10.254 H (0.300-4.500) uIu/ml Free T4 0.51 L (0.61-1.60) ng/dl Urine Color Urine Appearance (Clear) Urine pH (4.5-7.5) Ur Specific [place] (1.000-1.030) Urine Protein (Negative) Urine Glucose (UA) (Negative) Urine Ketones (Negative) Urine Blood (Negative) Urine Nitrite (Negative) Urine Bilirubin (Negative) Urine Urobilinogen (Negative) Ur Leukocyte Esterase (Negative) Urine WBC (Auto) (0-5) /hpf Urine RBC (Auto) (0-4) /hpf U Hyaline Cast (Auto) (0-5) /lpf U Epithel Cells (Auto) (0-5) /lpf Urine Bacteria (Auto) (Negative) Urine Yeast SARS-CoV-2, RNA, NAAT (NEGATIVE) 04/26/21 04/26/21 04/26/21 Range/Units 15:00 15:13 15:40 WBC (4.8-10.8) K/uL RBC (4.7-6.1) M/uL Hgb (14.0-18.0) g/dL Hct (42-52) % MCV (80-100) fL MCH (25-34) pg MCHC (32-36) g/dL RDW Std Deviation (36.4-46.3) fL RDW Coeff of Rosa (11.5-14.5) % Plt Count (130-400) K/uL MPV (7.4-10.4) fL Immature Gran % (Auto) % Neut % (Auto) % Lymph % (Auto) % [place] % (Auto) % Eos % (Auto) % Baso % (Auto) % Neut # (Auto) (1.4-6.5) K/uL Lymph # (Auto) (1.2-3.4) K/uL [place] # (Auto) (0.11-0.59) K/uL Eos # (Auto) (0-0.5) K/uL Baso # (Auto) (0-0.2) K/uL Immature Gran # (Auto) (0.00-0.02) K/uL Sodium (136-145) mmol/L Potassium (3.5-5.1) mmol/L Chloride (98-107) mmol/L Carbon Dioxide (21-32) mmol/L Anion Gap (3-11) BUN (6-23) mg/dl Creatinine (0.6-1.4) mg/dl Est Cr Clr Drug Dosing ml/min Est GFR ( Amer) ml/min Est GFR (Non-Af Amer) ml/min BUN/Creatinine Ratio (10-20) Glucose (70-99(Fasting)) mg/dl POC Glucose 275 H (70-99) mg/dl Lactate 2.1 H* (0.4-2.0) mmol/L Calcium (8.5-10.1) mg/dl Magnesium (1.7-2.4) mg/dl Total Bilirubin (0.2-1.0) mg/dl AST (13-39) U/L ALT (7-52) U/L Alkaline Phosphatase (34-104) U/L Troponin I Total Protein (6.0-8.3) gm/dl Albumin (3.4-5.0) gm/dl Globulin (2.5-4.0) gm/dl Albumin/Globulin Ratio (0.9-2) TSH (0.300-4.500) uIu/ml Free T4 (0.61-1.60) ng/dl Urine Color Dark Yellow Urine Appearance Clear (Clear) Urine pH 5.0 (4.5-7.5) Ur Specific [place] 1.022 (1.000-1.030) Urine Protein 1+ H (Negative) Urine Glucose (UA) 2+ H (Negative) Urine Ketones 2+ H (Negative) Urine Blood Negative (Negative) Urine Nitrite Negative (Negative) Urine Bilirubin Negative (Negative) Urine Urobilinogen Negative (Negative) Ur Leukocyte Esterase Negative (Negative) Urine WBC (Auto) 1-5 (0-5) /hpf Urine RBC (Auto) 5-10 H (0-4) /hpf U Hyaline Cast (Auto) 5-10 H (0-5) /lpf U Epithel Cells (Auto) 10-20 H (0-5) /lpf Urine Bacteria (Auto) Negative (Negative) Urine Yeast Not Reportable SARS-CoV-2, RNA, NAAT (NEGATIVE) 04/26/21 04/26/21 04/26/21 Range/Units 16:22 18:17 Unknown WBC (4.8-10.8) K/uL RBC (4.7-6.1) M/uL Hgb (14.0-18.0) g/dL Hct (42-52) % MCV (80-100) fL MCH (25-34) pg MCHC (32-36) g/dL RDW Std Deviation (36.4-46.3) fL RDW Coeff of Rosa (11.5-14.5) % Plt Count (130-400) K/uL MPV (7.4-10.4) fL Immature Gran % (Auto) % Neut % (Auto) % Lymph % (Auto) % [place] % (Auto) % Eos % (Auto) % Baso % (Auto) % Neut # (Auto) (1.4-6.5) K/uL Lymph # (Auto) (1.2-3.4) K/uL [place] # (Auto) (0.11-0.59) K/uL Eos # (Auto) (0-0.5) K/uL Baso # (Auto) (0-0.2) K/uL Immature Gran # (Auto) (0.00-0.02) K/uL Sodium (136-145) mmol/L Potassium (3.5-5.1) mmol/L Chloride (98-107) mmol/L Carbon Dioxide (21-32) mmol/L Anion Gap (3-11) BUN (6-23) mg/dl Creatinine (0.6-1.4) mg/dl Est Cr Clr Drug Dosing ml/min Est GFR ( Amer) ml/min Est GFR (Non-Af Amer) ml/min BUN/Creatinine Ratio (10-20) Glucose (70-99(Fasting)) mg/dl POC Glucose (70-99) mg/dl Lactate 1.9 (0.4-2.0) mmol/L Calcium (8.5-10.1) mg/dl Magnesium (1.7-2.4) mg/dl Total Bilirubin (0.2-1.0) mg/dl AST (13-39) U/L ALT (7-52) U/L Alkaline Phosphatase (34-104) U/L Troponin I 0.03 Total Protein (6.0-8.3) gm/dl Albumin (3.4-5.0) gm/dl Globulin (2.5-4.0) gm/dl Albumin/Globulin Ratio (0.9-2) TSH (0.300-4.500) uIu/ml Free T4 (0.61-1.60) ng/dl Urine Color Urine Appearance (Clear) Urine pH (4.5-7.5) Ur Specific [place] (1.000-1.030) Urine Protein (Negative) Urine Glucose (UA) (Negative) Urine Ketones (Negative) Urine Blood (Negative) Urine Nitrite (Negative) Urine Bilirubin (Negative) Urine Urobilinogen (Negative) Ur Leukocyte Esterase (Negative) Urine WBC (Auto) (0-5) /hpf Urine RBC (Auto) (0-4) /hpf U Hyaline Cast (Auto) (0-5) /lpf U Epithel Cells (Auto) (0-5) /lpf Urine Bacteria (Auto) (Negative) Urine Yeast SARS-CoV-2, RNA, NAAT NEGATIVE (NEGATIVE) Administered Medications Sodium Chloride (Nss 1000ml) 1,000 mls @ 125 mls/hr IV .Q8H BLACK Stop: 04/26/21 23:29 Last Admin: 04/26/21 15:45 Dose: 125 mls/hr Documented by: [id number] Discontinued Medications Sodium Chloride (Nss) 500 mls @ 999 mls/hr IV .Q31M BLACK Stop: 04/26/21 16:00 Last Infusion: 04/26/21 16:22 Dose: 0 mls/hr Documented by: [id number] Admin: 04/26/21 15:45 Dose: 999 mls/hr Documented by: [id number] Sodium Chloride (Nss 1000ml) 1,000 mls @ 999 mls/hr IV .Q1H1M ONE Stop: 04/26/21 17:30 Last Infusion: 04/26/21 18:41 Dose: 0 mls/hr Documented by: [id number] Admin: 04/26/21 17:22 Dose: 999 mls/hr Documented by: [id number] Ampicillin Sodium/Sulbactam Sodium 3,000 mg/ Sodium Chloride 108 mls @ 216 mls/hr IV NOW ONE Stop: 04/26/21 17:29 Last Infusion: 04/26/21 18:41 Dose: 0 mls/hr Documented by: [id number] Admin: 04/26/21 17:22 Dose: 216 mls/hr Documented by: [id number] Imaging Data Radiologist's Impression: Chest X-Ray 04/26/21 15:20 XR chest 1V portable CLINICAL HISTORY: weakness COMPARISON STUDY: Chest radiograph March 18, 2017. FINDINGS: Lung volumes are normal. Right infrahilar triangular density is noted. There is no pneumothorax or pleural effusion. Cardiac size is normal. Medi astinal contours are normal. There is no evidence for pulmonary edema. IMPRESSION: Right infrahilar triangular shaped density. This likely reflects pulmonary vessels however airspace disease or a pulmonary nodule could appear similar. Follow-up PA and lateral chest radiographs are recommended. ACT 112: Negative or not required by law. Electronically signed by: Ankit White M.D. 04/26/2021 4:06 PM Abdomen/Pelvis CT 04/26/21 16:[address] WITHOUT CONTRAST CT DOSE: 291.87 mGy.cm HISTORY: Acute nausea with vomiting and altered mental status vomiting, AMS TECHNIQUE: Multiaxial CT images of the abdomen and pelvis were performed without contrast. A dose lowering technique was utilized adhering to the principles of ALARA. COMPARISON STUDY: CT abdomen and pelvis 03/18/2017 FINDINGS: Cardiomegaly with coronary artery calcifications. Trace pleural effusions with bibasilar dependent consolidation. Additional ill-defined consolidative op acities are noted within the right middle lobe. Bibasilar mucous plugging. Respiratory motion artifact and lack of contrast limits the study. No pneumatosis or pneumoperitoneum. The unenhanced spleen, moderately atrophic pancreas and adrenal glands are unremarkable. Cholecystectomy with mild pneumobilia. The unenhanced liver is unremarkable. Bilateral renal calcifications measure up to 7 mm on the left and 4 mm on the right. No ureteral calculi or hydronephrosis. 9.9 x 8.3 cm left renal cyst. A Smith catheter is noted within the urinary bladder lumen. Moderate urinary bladder wall thickening. Intraluminal air is likely secondary to instrumentation. Prostamegaly with brachial therapy seeds. Extensive atherosclerosis of the abdominal aorta without aneurysm. Fusiform dilation of the bilateral common iliac arteries measures up to 1.9 cm on the right and 1.6 cm on the left. There is no adenopathy. No bowel obstruction. Mild wall thickening of the rectum with partial distention and mild perirectal stranding. Extensive colonic diverticulosis without acute diverticulitis. Mild to moderate fecal retention. Normal appendix. Unremarkable soft tissues. Degenerative changes of the spine, pelvis and hips. There is a suggested chondroid lesion of the right femoral head. Healed chronic fracture deformity of the right pubic ramus. Chronic appearing L1 superior endplate compression deformity without retropulsion. IMPRESSION: 1. Trace pleural effusions with dependent bibasilar consolidation and mucous plugging. Correlate clinically to exclude aspiration pneumonia. 2. No bowel obstruction. 3. Mild rectal wall thickening with perirectal stranding which may represent a mild proctitis. 4. Extensive colonic diverticulosis without acute diverticulitis. 5. Decompressed urinary bladder with wall thickening. Correlate with urinalysis. 6. Bilateral renal calcifications, likely vascular in origin. Nonobstructing renal calculi could appear similarly. 7. Additional findings as above. ACT 112: Negative or not required by law. The above report was generated using voice recognition software. It may contain grammatical, syntax or spelling errors. Electronically signed by: Albin Cordova M.D. 04/26/2021 6:[address] 04/26/21 16:32 CT head/brain wo con CLINICAL HISTORY: 89 years-old Male with AMS. Acutely altered mental status TECHNIQUE: Multiple axial CT images of the head were obtained without contrast. A dose lowering technique was utilized adhering to the principles of ALARA. CT DOSE: 614.27 mGy.cm COMPARISON: Head CT 12/19/2016 FINDINGS: No acute intracranial hemorrhage, midline shift, intracranial mass, hydrocephalus, territorial ischemia or abnormal extra-axial collection. 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 White matter hypodensities suggest chronic microvascular ischemic disease. Cerebral vascular calcifications. The calvarium is intact. There is severe near complete opacification of the right maxillary sinus. The mastoid air cells and middle ear cavities are clear. Mild polypoid mucosal thickening of the left maxillary sinus. IMPRESSION: No acute intracranial abnormality. ACT 112: Negative or not required by law. The above report was generated using voice recognition software. It may contain grammatical, syntax or spelling errors. Electronically signed by: Albin Cordova M.D. 04/26/2021 5:37 PM Discharge Plan Visit Data Chief Complaint: Altered Mental Status Stated Complaint: DECREASED LOC, LETHARGIC, ED Provider: Sam Reno Discharge Problem: Hypoxia, Hypothyroidism, Aspiration pneumonia, Acute dehydration Forms Stand Alone Forms: My [facility] Prescriptions Prescriptions: No Action metformin 500 mg Tablet 1,000 mg PO BID RF: 0 glipizide 10 mg Tablet 10 mg PO BID RF: 0 alprazolam 0.5 mg Tablet 0.5 mg PO TID PRN (Reason: Anxiety) RF: 0 tamsulosin 0.4 mg Capsule 0.4 mg PO HS RF: 0 levothyroxine 100 mcg tablet 100 mcg PO DAILYBB RF: 0 etodolac 300 mg capsule 300 mg PO BID RF: 0 omeprazole 20 mg capsule,delayed release(DR/EC) 20 mg PO DAILYBB RF: 0 escitalopram oxalate 10 mg tablet 10 mg PO DAILY RF: 0 Trulicity 4.5 mg/0.5 mL pen injector 4.5 mg SUBCUT WK RF: 0 Referrals Referrals: Malcolm Cruz MD [Primary Care Provider] -
--- NOTE | 2021-04-26 18:33 | History & Physical Report ---
Date of Service April 26, 2021 Assessment & Plan (1) Pneumonia: Plan: Could be secondary to aspiration We will start intravenous Unasyn and doxycycline to cover atypicals Blood and urine cultures have been taken Speech evaluation We will keep him n.p.o. for now Will need PT and OT evaluation (2) Change in mental status: Plan: Could be secondary to infection and dehydration (3) Nausea & vomiting: Plan: Likely secondary to infection Denies any more nausea or vomiting in the emergency room (4) Diabetes mellitus, type II: Plan: We will hold off any oral medications Put him on sliding scale insulin coverage in the hospital (5) Hypothyroidism: Plan: TSH has been high with low T4 Has not been taking his medicine for the last 3 days We will continue his usual dose of thyroxine (6) Depression: Plan: We will continue medications but will not give any Ativan (7) Prostate cancer: Plan: No acute problem DVT prophylaxis Subcu heparin CODE STATUS Full History of Present Illness Chief Complaint: Nausea and vomiting and change in mental status since Saturday last Primary Care Provider: Malcolm Cruz MD He is an 89-year-old male with significant past medical history including type 2 diabetes, hypothyroidism, history of prostate cancer, anxiety and depression apparently has been having nausea and vomiting since Saturday last. He has not been eating or drinking much since Saturday and was noted to be more confused as of today when he was brought into the emergency room for further evaluation. He also has been complaining of increasing weakness and tiredness since Saturday last. He is almost bedbound and requires help with ADL S. He does not have any acute symptoms during examination specifically did not have any pain, palpitation, nausea and or vomiting and did not have any focal neurological deficit on examination. He remains generally weak and lethargic. Chest x-ray did show possible pulmonary vasculature prominence on the right side or could be infiltration and he was a started with intravenous antibiotic and was admitted to medical floor for continuation of care. Allergies Allergy/AdvReac Type Severity Reaction Status Date / Time Iodinated Contrast Media Allergy Intermediate HIVES Verified 04/26/21 17:38 iodine Allergy Intermediate ALLERGY TO Verified 04/26/21 17:38 IVP DYE/HIVES Home Medications Medication Instructions Recorded Confirmed Type alprazolam 0.5 mg tablet 0.5 mg PO TID PRN 01/08/20 04/26/21 History glipizide 10 mg tablet 10 mg PO BID 01/08/20 04/26/21 History metformin 500 mg tablet 1,000 mg PO BID 01/08/20 04/26/21 History tamsulosin 0.4 mg capsule 0.4 mg PO HS 01/08/20 04/26/21 History dulaglutide 4.5 mg/0.5 mL 4.5 mg SUBCUT WK 04/26/21 04/26/21 History subcutaneous pen injector (Trulicity) escitalopram oxalate 10 mg tablet 10 mg PO DAILY 04/26/21 04/26/21 History etodolac 300 mg capsule 300 mg PO BID 04/26/21 04/26/21 History levothyroxine 100 mcg tablet 100 mcg PO DAILYBB 04/26/21 04/26/21 History omeprazole 20 mg capsule,delayed 20 mg PO DAILYBB 04/26/21 04/26/21 History release Past Med/Surg History Medical History Diabetes Hard of hearing History of fall HX FALLS YEARS AGO History of prostate cancer DX YRS AGO - HX SEEDS IMPLANTED Hypothyroid Tremor of both hands HEREDITARY Surgical History History of brachytherapy SEEDS IMPLANTED FOR PROSTATE CA History of cholecystectomy History of colonoscopy History of tonsillectomy Family History Other Family history of diabetes mellitus Social History Smoking Status: Smoker, status unknown Hx Alcohol Use: No Preferred Language: Vietnamese Communication Ability: Effective Public Speaking Coach Required: No Beliefs That Will Affect Care: None Current Living Situation: Spouse Feels Safe at Home: Yes Assistive Devices: Cane, Denture - Upper, Glasses and Hearing Aid - Bilateral Review of Systems Review of Systems: Unobtainable due to cognitive status Physical Exam Physical Exam: Lying in bed comfortably Constitutional: + ill appearing and average body habitus Eyes: PERRL, conjunctivae normal, anicteric sclerae ENMT: external ear and nose normal, oropharynx normal Neck: trachea midline, no thyromegaly Respiratory: no respiratory distress Auscultation: + diminished lung sounds and + crackles (Bibasilar but more on the right base); no wheezes Gastrointestinal (Abdomen): Inspection/Auscultation: normal bowel sounds; abdomen not distended Percussion/Palpation: abdomen soft; abdomen nontender Musculoskeletal: No acute arthritis in any joint Neurologic: Alert and awake. Seems to be pleasantly confused. Generally weak and lethargic but no focal neurological deficit Results & Data Results & Data ([facility]) Vital Signs (Past 12 Hours) Vital Signs Temp Pulse Pulse Resp BP BP Pulse Ox 04/26/21 17:51 71 16 135/70 96 04/26/21 15:23 90 04/26/21 15:19 90 04/26/21 15:12 36.7 C 71 74 17 135/72 135/72 90 Laboratory Results Short CBC 04/26/21 Range/Units 14:06 WBC 7.47 (4.8-10.8) K/uL Hgb 16.5 (14.0-18.0) g/dL Hct 46.5 (42-52) % Plt Count 217 (130-400) K/uL BMP 04/26/21 14:06 Sodium 134 L Potassium 3.9 Chloride 97 L Carbon Dioxide 24 BUN 25 H Creatinine 0.90 Glucose 212 H Calcium 8.5 Cardiac Enzymes 04/26/21 04/26/21 Range/Units 14:06 16:22 Troponin I Cancelled 0.03 Liver Function 04/26/21 Range/Units 14:06 Total Bilirubin 1.6 H (0.2-1.0) mg/dl AST 43 H (13-39) U/L ALT 27 (7-52) U/L Alkaline Phosphatase 71 (34-104) U/L Albumin 3.7 (3.4-5.0) gm/dl Urine 04/26/21 Range/Units 15:00 Urine Color Dark Yellow Urine Appearance Clear (Clear) Urine pH 5.0 (4.5-7.5) Ur Specific [place] 1.022 (1.000-1.030) Urine Protein 1+ H (Negative) Urine Glucose (UA) 2+ H (Negative) Medications Administered Current Inpatient Medications Sodium Chloride (Nss 1000ml) 1,000 mls @ 125 mls/hr IV .Q8H BLACK Stop: 04/26/21 23:29 Last Admin: 04/26/21 15:45 Dose: 125 mls/hr Documented by: Ceftriaxone Sodium 1,000 mg/ (Dextrose) 50 mls @ 100 mls/hr IV Q24H BLACK; Protocol Stop: 05/03/21 18:29 Doxycycline Hyclate 100 mg/ (Dextrose) 110 mls @ 50 mls/hr IV Q12H BLACK Stop: 05/03/21 18:29
[2021-04-26] MEDS: DOXYCYCLINE HYCLATE 100 MG in DEXTROSE 5% 100 ML IV SCH (19:34)
[2021-04-26] MEDS ORDERED: INSULIN ASPART PER UNIT SC SCH (21:00)
[2021-04-26] MEDS ORDERED: Nursing to Pharmacy Communication SCH (22:15)
[2021-04-26] MEDS: HEPARIN SOD 5,000 UNIT/0.5 ML VIAL SQ SCH (23:12)
[2021-04-26] MEDS: TAMSULOSIN HCL 0.4 MG CAP PO SCH (23:13)
[2021-04-27] MEDS: INSULIN ASPART PER UNIT SC SCH ×6 (00:12→21:30)
[2021-04-27] MEDS: AMPICILLIN/SULBACTAM SOD 3,000 MG in 0.9 % SODIUM CHLORIDE 100 ML IV SCH ×3 (02:20→17:26)
[2021-04-27] MEDS: LEVOTHYROXINE SODIUM 100 MCG TABLET PO SCH (06:24)
[2021-04-27] MEDS: PANTOprazole 40 MG TAB PO SCH (06:29)
[2021-04-27] MEDS: DOXYCYCLINE HYCLATE 100 MG in DEXTROSE 5% 100 ML IV SCH ×2 (06:34→18:18)
[2021-04-27 06:45] LABS: Basophils # (auto) 0.01 K/uL (0-0.2); Basophils % (auto) 0.1 %; Eosinophils # (auto) 0.01 K/uL (0-0.5); Eosinophils % (auto) 0.1 %; Hematocrit (blood only) 44.1 % (42-52); Hemoglobin 15.3 g/dL (14.0-18.0); Immature Granulocytes # (auto) 0.03 K/uL (0.00-0.02); Immature Granulocytes % (auto) 0.3 %; Lymphocytes # (auto) 0.85 K/uL (1.2-3.4); Mean Corpuscular Hemoglobin 32.7 pg (25-34); Mean Corpuscular Hgb Conc 34.7 g/dL (32-36); Mean Corpuscular Volume 94.2 fL (80-100); Mean Platelet Volume 10.1 fL (7.4-10.4); Monocytes # (auto) 1.05 K/uL (0.11-0.59); Monocytes % (auto) 11.1 %; Neutrophils # (auto) 7.48 K/uL (1.4-6.5); Neutrophils % (auto) 79.4 %; Platelet Count 162 K/uL (130-400); RDW Coefficient of Variation 12.8 % (11.5-14.5); RDW Standard Deviation 44.2 fL (36.4-46.3); Red Blood Count 4.68 M/uL (4.7-6.1); White Blood Count 9.43 K/uL (4.8-10.8)
[2021-04-27 07:09] LABS: BUN Creatinine Ratio 21.7 (10-20); Calcium 8.2 mg/dl (8.5-10.1); Creatinine Clr Calc Pharmacy 56.4 ml/min; Est GFR (African American) 90.4 ml/min; Potassium 3.7 mmol/L (3.5-5.1)
[2021-04-27] MEDS: HEPARIN SOD 5,000 UNIT/0.5 ML VIAL SQ SCH ×2 (08:50→20:08)
[2021-04-27] MEDS: ESCITALOPRAM OXALATE 10 MG TAB PO SCH (08:50)
--- NOTE | 2021-04-27 11:18 | Electrocardiogram Report ---
Test Reason : Blood Pressure : / mmHG Vent. Rate : 074 BPM Atrial Rate : 074 BPM P-R Int : 238 ms QRS Dur : 180 ms QT Int : 406 ms P-R-T Axes : 081 122 057 degrees QTc Int : 450 ms Sinus rhythm with 1st degree A-V block Right bundle branch block Possible Lateral infarct , age undetermined Abnormal ECG When compared with ECG of 20-MAR-2017 07:11, Premature ventricular complexes are no longer Present Borderline criteria for Lateral infarct are now Present T wave inversion now evident in Anterior leads Confirmed by Brandan Cox ([id number] on 04/27/2021 11:18:29 AM Referred By: REFERRED SELF Confirmed By:Uziel Cox
[2021-04-27] MEDS ORDERED: Nursing to Pharmacy Communication SCH (13:00)
--- NOTE | 2021-04-27 17:18 | Hospitalist Progress Note ---
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 Per patient's son Cali, patient does not use home oxygen and he needs some assistance with activities of daily living and patient walks carefully with the help of a cane. On the day prior to arrival patient was very weak and needed assistance while getting up off a chair and fell. He is being managed for the following: (1) likely aspiration pneumonia: (1) mild proctitis (1) metabolic encephalopathy: / above (1) Fall - PT/OT Nausea and vomiting prior to arrival [see above] likely leading to aspiration pneumonia Patient had decreased appetite, weakness and tiredness and increasing confusion prior to arrival Admitting CTAP: Dependent bibasilar consolidation and mucous plugging suggestive of aspiration pneumonia. Mild proctitis. Admitting CT head: No acute findings. Await admitting blood cultures - no growth after 24 hours. Speech evaluated 04/27, made dietary recommendations. No straws. Continue with Unasyn 04/26 and doxycycline 04/26 PT/OT (4) Diabetes mellitus, type II: Plan: Hold oral med Put him on sliding scale insulin coverage in the hospital update A1c (5) Hypothyroidism: Plan: TSH has been high with low T4 Has not been taking his medicine for the last 3 days We will continue his usual dose of thyroxine f/u with thyroid function test in 6 weeks as Outpatient. (6) Depression: Plan: We will continue medications but will not give any Ativan (7) Prostate cancer: Plan: No acute problem DVT prophylaxis Subcu heparin CODE STATUS Full 04/27--> patient son Cali was given a phone call and updated about the current status of the patient including aspiration pneumonia and treatment he is receiving. Answered all his questions. He voiced understanding and was agreeable to the plan of care. Admission and Anticipated Discharge Date Admission Date: April 26, 2021 Subjective Patient seen and examined at bedside as follow-up for likely aspiration pneumonia. Patient was lying in bed, on 10 L oxygen by oxygen mask, AOx3, NAD, Per RN no new acute events overnight but patient aspirates and foods. Speech evaluated the patient and made dietary recommendation. Patient reports no home oxygen requirement. Patient denies any headache/fever/chills/chest pain/belly pain/other review of symptoms. Patient was n.p.o. because of altered mentation at presentation, has already been started on diet as per speech. Physical Exam Physical Exam: GENERAL: Alert and oriented x3. NAD, on RA. Ill appearing HEENT: No pallor, no icterus. Pupils equal, round and reactive to light. Oral mucosa moist. NECK: No JVD, no neck masses. HEART: S1 and S2 heard. Regular rate and rhythm. No murmur, no gallop. RESPIRATORY SYSTEM: Normal AP diameter. No accessory muscle use. No wheezing, + crackles R>L bases, decreased breath sounds. ABDOMEN: Soft, bowel sounds present, nontender, no distention. CENTRAL NERVOUS SYSTEM: No facial droop. Speech is clear. Obeys simple commands. Moves extremities. EXTREMITIES: No edema, no erythema seen. Results & Data Results & Data ([facility]) Vital Signs (Past 12 Hours) Vital Signs Temp Pulse Pulse Resp BP Pulse Ox 04/27/21 15:34 73 04/27/21 14:32 36.4 C L 75 18 142/119 H 92 04/27/21 11:18 36.3 C L 65 18 128/74 97 04/27/21 07:29 68 04/27/21 07:27 36.4 C L 63 18 133/77 99
[2021-04-27] MEDS: TAMSULOSIN HCL 0.4 MG CAP PO SCH (20:08)
[2021-04-28] MEDS: AMPICILLIN/SULBACTAM SOD 3,000 MG in 0.9 % SODIUM CHLORIDE 100 ML IV SCH ×4 (01:24→19:06)
[2021-04-28 06:07] LABS: Hemoglobin 14.6 g/dL (14.0-18.0); Mean Corpuscular Hemoglobin 32.4 pg (25-34); Mean Corpuscular Hgb Conc 34.8 g/dL (32-36); Mean Corpuscular Volume 93.1 fL (80-100); Platelet Count 168 K/uL (130-400); RDW Coefficient of Variation 12.8 % (11.5-14.5); RDW Standard Deviation 43.4 fL (36.4-46.3); Red Blood Count 4.51 M/uL (4.7-6.1); White Blood Count 9.06 K/uL (4.8-10.8)
[2021-04-28] MEDS: PANTOprazole 40 MG TAB PO SCH (06:24)
[2021-04-28] MEDS: LEVOTHYROXINE SODIUM 100 MCG TABLET PO SCH (06:24)
[2021-04-28] MEDS: DOXYCYCLINE HYCLATE 100 MG in DEXTROSE 5% 100 ML IV SCH ×2 (06:25→19:49)
[2021-04-28 06:34] LABS: BUN Creatinine Ratio 27.7 (10-20); Calcium 8.2 mg/dl (8.5-10.1); Creatinine Clr Calc Pharmacy 56.4 ml/min; Est GFR (African American) 90.4 ml/min; Potassium 3.5 mmol/L (3.5-5.1)
[2021-04-28 06:38] LABS: Magnesium 1.8 mg/dl (1.7-2.4); Phosphorus 1.3 mg/dl (2.5-4.9)
[2021-04-28] MEDS ORDERED: POTASSIUM PHOS 3 MMOL/1 ML INFUSION IV STA (06:44)
[2021-04-28 06:58] LABS: Estimated Average Glucose 192 mg/dl; Hemoglobin A1C 8.3 % (4.5-5.6)
[2021-04-28] MEDS ORDERED: POTASSIUM PHOSPHATE 30 MMOL in SODIUM CHLORIDE 0.9% 500 ML IV ONE (07:00)
[2021-04-28] MEDS: HEPARIN SOD 5,000 UNIT/0.5 ML VIAL SQ SCH ×2 (08:36→19:52)
[2021-04-28] MEDS: INSULIN ASPART PER UNIT SC SCH ×4 (08:36→22:04)
[2021-04-28] MEDS: ESCITALOPRAM OXALATE 10 MG TAB PO SCH (08:36)
--- NOTE | 2021-04-28 12:40 | Fluoroscopy Report ---
FL video swallow CLINICAL HISTORY: 89 years-old Male with assess for aspiration. Screening study in a patient with po ssible aspiration pneumonia TECHNIQUE: Video fluoroscopic evaluation of swallowing was performed in the AP and lateral projection s by the speech pathology staff. The patient is fed thin liquid, mildly thick liquid, pudding and aircraft manager cker with paste consistencies. FLUOROSCOPY TIME: 3.2 minutes. COMPARISON STUDY: CT abdomen and pelvis 04/26/2021 FINDINGS: There is penetration and trace aspiration with thin liquid barium. Vallecular retention is most pronounced with pudding and cracker with paste consistencies. There is decreased epiglottic inve rsion most notably seen with the thin liquid consistency. IMPRESSION: 1. Trace aspiration with thin liquid barium. 2. Please see the speech pathologist report for detailed findings and recommendations. ACT 112: Negative or not required by law. Electronically signed by: Albin Cordova M.D. 04/28/2021 12:38 PM
--- NOTE | 2021-04-28 18:25 | Hospitalist Progress Note ---
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 Per patient's son Cali, patient does not use home oxygen and he needs some assistance with activities of daily living and patient walks carefully with the help of a cane. On the day prior to arrival patient was very weak and needed assistance while getting up off a chair and fell. He is being managed for the following: (1) likely aspiration pneumonia: (1) mild proctitis (1) metabolic encephalopathy: / above (1) Fall - PT/OT Nausea and vomiting prior to arrival [see above] likely leading to aspiration pneumonia Patient had decreased appetite, weakness and tiredness and increasing confusion prior to arrival Admitting CTAP: Dependent bibasilar consolidation and mucous plugging suggestive of aspiration pneumonia. Mild proctitis. Admitting CT head: No acute findings. Await admitting blood cultures - no growth after 48 hours. Speech evaluated 04/27, made dietary recommendations. No straws. Provide good mouth care. Continue with Unasyn 04/26 and doxycycline 04/26 --> transition to oral juan manuel PT/OT (4) Diabetes mellitus, type II: Plan: Hold oral med Put him on sliding scale insulin coverage in the hospital update A1c --> 8.3% (5) Hypothyroidism: Plan: TSH has been high with low T4 Has not been taking his medicine for the last 3 days We will continue his usual dose of thyroxine f/u with thyroid function test in 6 weeks as Outpatient. (6) Depression: Plan: We will continue medications but will not give any Ativan (7) Prostate cancer: Plan: No acute problem DVT prophylaxis Subcu heparin CODE STATUS Full 04/27--> patient son Cali was given a phone call and updated about the current status of the patient including aspiration pneumonia and treatment he is receiving. Answered all his questions. He voiced understanding and was agreeable to the plan of care. Disposition: PT/OT. CM to assist with DC planning. Medically stable. Admission and Anticipated Discharge Date Admission Date: April 26, 2021 Subjective Patient seen and examined at bedside as follow-up for likely aspiration pneumonia. Patient was lying in bed, on 8 L oxygen by oxygen mask, AOx3, NAD, Per RN no new acute events overnight. Speech further evaluated the patient , NO STRAWS. Patient reports no home oxygen requirement. Medicated with RN to wean down oxyge n. Patient denies any headache/fever/chills/chest pain/belly pain/other review of symptoms. Physical Exam Physical Exam: GENERAL: Alert and oriented x3. NAD, on RA. HEENT: No pallor, no icterus. Pupils equal, round and reactive to light. Oral mucosa moist. NECK: No JVD, no neck masses. HEART: S1 and S2 heard. Regular rate and rhythm. No murmur, no gallop. RESPIRATORY SYSTEM: Normal AP diameter. No accessory muscle use. No wheezing, + crackles R>L bases --> improving. ABDOMEN: Soft, bowel sounds present, nontender, no distention. CENTRAL NERVOUS SYSTEM: No facial droop. Speech is clear. Obeys simple commands. Moves extremities. EXTREMITIES: No edema, no erythema seen. Results & Data Results & Data ([facility]) Vital Signs (Past 12 Hours) Vital Signs Temp Pulse Pulse Resp BP Pulse Ox Pulse Ox 04/28/21 15:14 88 04/28/21 15:11 36.5 C 89 20 114/73 92 04/28/21 14:48 90 04/28/21 11:53 59 L 04/28/21 11:23 36.4 C L 79 20 123/74 92 04/28/21 07:56 36.2 C L 67 20 126/70 98 Pulse Ox Pulse Ox 04/28/21 15:14 04/28/21 15:11 04/28/21 14:48 90 88 L 04/28/21 11:53 04/28/21 11:23 04/28/21 07:56
[2021-04-28] MEDS: TAMSULOSIN HCL 0.4 MG CAP PO SCH (19:50)
[2021-04-29] MEDS: AMPICILLIN/SULBACTAM SOD 3,000 MG in 0.9 % SODIUM CHLORIDE 100 ML IV SCH (01:27)
[2021-04-29 07:02] LABS: BUN Creatinine Ratio 35.4 (10-20); Calcium 7.7 mg/dl (8.5-10.1); Est GFR (Non-African American) 86.3 ml/min; Magnesium 1.7 mg/dl (1.7-2.4); Phosphorus 1.8 mg/dl (2.5-4.9); Potassium 3.6 mmol/L (3.5-5.1)
[2021-04-29] MEDS: DOXYCYCLINE HYCLATE 100 MG in DEXTROSE 5% 100 ML IV SCH (07:34)
[2021-04-29] MEDS: PANTOprazole 40 MG TAB PO SCH (07:35)
[2021-04-29] MEDS: LEVOTHYROXINE SODIUM 100 MCG TABLET PO SCH (07:35)
[2021-04-29] MEDS: INSULIN ASPART PER UNIT SC SCH ×4 (08:26→20:38)
[2021-04-29] MEDS: ESCITALOPRAM OXALATE 10 MG TAB PO SCH (08:28)
[2021-04-29] MEDS: HEPARIN SOD 5,000 UNIT/0.5 ML VIAL SQ SCH ×2 (08:28→20:39)
[2021-04-29] MEDS: AMOXICILLIN/CLAVULANATE 875 MG TAB PO SCH ×2 (09:42→18:17)
[2021-04-29] MEDS ORDERED: SODIUM PHOSPHATE 3 MMOL/1 ML INFUSION IV STA (16:45)
--- NOTE | 2021-04-29 16:50 | Hospitalist Progress Note ---
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 Per patient's son Cali, patient does not use home oxygen and he needs some assistance with activities of daily living and patient walks carefully with the help of a cane. On the day prior to arrival patient was very weak and needed assistance while getting up off a chair and fell. He is being managed for the following: (1) likely aspiration pneumonia: (1) mild proctitis (1) metabolic encephalopathy: / above (1) Fall - PT/OT Nausea and vomiting prior to arrival [see above] likely leading to aspiration pneumonia Patient had decreased appetite, weakness and tiredness and increasing confusion prior to arrival Admitting CTAP: Dependent bibasilar consolidation and mucous plugging suggestive of aspiration pneumonia. Mild proctitis. Admitting CT head: No acute findings. Await admitting blood cultures - no growth after 48 hours. Speech evaluated 04/27, made dietary recommendations. No straws. Provide good mouth care. Continue with Unasyn 04/26 and doxycycline 04/26 --> 04/29 Augmentin and 04/29 Doxy PT/OT (4) Diabetes mellitus, type II: Plan: Hold oral med Put him on sliding scale insulin coverage in the hospital update A1c --> 8.3% (5) Hypothyroidism: Plan: TSH has been high with low T4 Has not been taking his medicine for the last 3 days We will continue his usual dose of thyroxine f/u with thyroid function test in 6 weeks as Outpatient. (6) Depression: Plan: We will continue medications but will not give any Ativan (7) Prostate cancer: Plan: No acute problem DVT prophylaxis Subcu heparin CODE STATUS Full 04/27--> patient son Cali was given a phone call and updated about the current status of the patient including aspiration pneumonia and treatment he is receiving. Answered all his questions. He voiced understanding and was a greeable to the plan of care. Disposition: PT/OT. CM to assist with DC planning. Medically stable. Awaiting placement. Admission and Anticipated Discharge Date Admission Date: April 26, 2021 Subjective Patient seen and examined at bedside as follow-up for likely aspiration pneumonia. Patient was lying in bed, on 2 L oxygen by oxygen mask, AOx3, NAD, Per RN, pt aspirating on foods. NO STRAWS. Patient reports no home oxygen requirement. Patient denies any headache/fever/chills/chest pain/belly pain/other review of symptoms. Physical Exam Physical Exam: GENERAL: Alert and oriented x3. NAD, on RA. HEENT: No pallor, no icterus. Pupils equal, round and reactive to light. Oral mucosa moist. NECK: No JVD, no neck masses. HEART: S1 and S2 heard. Regular rate and rhythm. No murmur, no gallop. RESPIRATORY SYSTEM: Normal AP diameter. No accessory muscle use. No wheezing, + crackles R>L bases --> improving. ABDOMEN: Soft, bowel sounds present, nontender, no distention. CENTRAL NERVOUS SYSTEM: No facial droop. Speech is clear. Obeys simple commands. Moves extremities. EXTREMITIES: No edema, no erythema seen. Results & Data Results & Data ([facility]) Vital Signs (Past 12 Hours) Vital Signs Temp Pulse Resp BP Pulse Ox 04/29/21 07:00 36.8 C 64 18 106/62 96
[2021-04-29] MEDS ORDERED: SODIUM PHOSPHATE 30 MMOL in SODIUM CHLORIDE 0.9% 500 ML IV ONE (17:00)
[2021-04-29] MEDS: TAMSULOSIN HCL 0.4 MG CAP PO SCH (20:39)
[2021-04-29] MEDS: DOXYCYCLINE HYCLATE 100 MG CAP PO SCH (20:39)
[2021-04-30] MEDS: PANTOprazole 40 MG TAB PO SCH (06:05)
[2021-04-30] MEDS: LEVOTHYROXINE SODIUM 100 MCG TABLET PO SCH (06:05)
[2021-04-30] MEDS: INSULIN ASPART PER UNIT SC SCH ×2 (08:40→13:12)
[2021-04-30] MEDS: DOXYCYCLINE HYCLATE 100 MG CAP PO SCH (08:42)
[2021-04-30] MEDS: ESCITALOPRAM OXALATE 10 MG TAB PO SCH (08:42)
[2021-04-30] MEDS: AMOXICILLIN/CLAVULANATE 875 MG TAB PO SCH (08:42)
[2021-04-30] MEDS: HEPARIN SOD 5,000 UNIT/0.5 ML VIAL SQ SCH (08:42)
[2021-04-30] MEDS ORDERED: ADVANCED PROBIOTIC 1250 MG CAPSULE PO SCH (13:45)
--- NOTE | 2021-04-30 13:54 | Discharge Summary ---
Date of Service April 30, 2021 Admission HPI Per Admitting Provider He is an 89-year-old male with significant past medical history including type 2 diabetes, hypothyroidism, history of prostate cancer, anxiety and depression apparently has been having nausea and vomiting since Saturday last. He has not been eating or drinking much since Saturday and was noted to be more confused as of today when he was brought into the emergency room for further evaluation. He also has been complaining of increasing weakness and tiredness since Saturday last. He is almost bedbound and requires help with ADL S. He does not have any acute symptoms during examination specifically did not have any pain, palpitation, nausea and or vomiting and did not have any focal neurological deficit on examination. He remains generally weak and lethargic. Chest x-ray did show possible pulmonary vasculature prominence on the right side or could be infiltration and he was a started with intravenous antibiotic and was admitted to medical floor for continuation of care. Admission Exam Per Admitting Provider Physical Exam: Lying in bed comfortably Constitutional: + ill appearing and average body habitus Eyes: PERRL, conjunctivae normal, anicteric sclerae ENMT: external ear and nose normal, oropharynx normal Neck: trachea midline, no thyromegaly Respiratory: no respiratory distress Auscultation: + diminished lung sounds and + crackles (Bibasilar but more on the right base); no wheezes Gastrointestinal (Abdomen): Inspection/Auscultation: normal bowel sounds; abdomen not distended Percussion/Palpation: abdomen soft; abdomen nontender Musculoskeletal: No acute arthritis in any joint Neurologic: Alert and awake. Seems to be pleasantly confused. Generally weak and lethargic but no focal neurological deficit Principal Diagnosis Likely aspiration pneumonia Mild proctitis Fall Hypothyroidism Discharge Exam GENERAL: Alert and oriented x3. NAD, on RA. HEENT: No pallor, no icterus. Pupils equal, round and reactive to light. Oral mucosa moist. NECK: No JVD, no neck masses. HEART: S1 and S2 heard. Regular rate and rhythm. No murmur, no gallop. RESPIRATORY SYSTEM: Normal AP diameter. No accessory muscle use. No wheezing, no crackles ABDOMEN: Soft, bowel sounds present, nontender, no distention. CENTRAL NERVOUS SYSTEM: No facial droop. Speech is clear. Obeys simple commands. Moves extremities. EXTREMITIES: No edema, no erythema seen. Discharge Data Allergies Allergy/AdvReac Type Severity Reaction Status Date / Time Iodinated Contrast Media Allergy Intermediate HIVES Verified 04/26/21 17:38 iodine Allergy Intermediate ALLERGY TO Verified 04/26/21 17:38 IVP DYE/HIVES Consultations 04/26/21 17:39 ED Decision to Admit Stat Ordered Studies 04/26/21 16:32 CT abd pelvis wo con Stat CT head/brain wo con Stat 04/28/21 11:30 FL video swallow Routine Hospital Course (1) Aspiration pneumonia: 89-year-old male with PMH of type 2 diabetes, hypothyroidism, prostate cancer, anxiety and depression was brought in 04/26 for N, V going on for 4-5 days ago STEEP TENDER leading to decreased appetitie and more confusion on the day of arrival a/w increased weakness and tiredness. Per patient's son Cali, patient does not use home oxygen and he needs some assistance with activities of daily living and patient walks carefully with the help of a cane. On the day prior to arrival patient was very weak and needed assistance while getting up off a chair and fell. He was managed for the following: (1) likely aspiration pneumonia: (1) mild proctitis (1) metabolic encephalopathy: 2/ above (1) Fall - PT/OT Nausea and vomiting prior to arrival [see above] likely leading to aspiration pneumonia Patient had decreased appetite, weakness and tiredness and increasing confusion prior to arrival Admitting CTAP: Dependent bibasilar consolidation and mucous plugging suggestive of aspiration pneumonia. Mild proctitis. Admitting CT head: No acute findings. Admitting blood cultures - no growth after 48 hours. Speech evaluated 04/27, made dietary recommendations. No straws. Provide good mouth care. Continue with Unasyn 04/26 and doxycycline 04/26 --> 04/29 Augmentin and 04/29 Doxy 7 more days of Augmentin and doxycycline upon discharge. Probiotic for the same duration. PT/OT (4) Diabetes mellitus, type II: Plan: Hold oral med Put him on sliding scale insulin coverage in the hospital update A1c --> 8.3% (5) Hypothyroidism: Plan: TSH has been high with low T4 Has not been taking his medicine for the last 3 days We will continue his usual dose of thyroxine f/u with thyroid function test in 6 weeks as Outpatient. (6) Depression: Plan: We will continue medications but will not give any Ativan (7) Prostate cancer: Plan: No acute problem CODE STATUS Full 04/27--> patient son Cali was given a phone call and updated about the current status of the patient including aspiration pneumonia and treatment he is receiving. Answered all his questions. He voiced understanding and was agreeable to the plan of care. 04/30--> patient son Cali was given a phone call and updated about the status of the patient and went through the discharge instructions with him. Patient being discharged to [facility] with following instruction at the point of discharge: Follow-up with the primary care physician within a week time. Diet recommendation: Minced and moist diet, side of gravy/broth/ostomy A, carb consistent diet, heart healthy diet;no straws. Sit up while eating. For your aspiration pneumonia and mild proctitis, continue with antibiotics for 7 more days. Probiotics added for the same duration. You need a thyroid function tests in 6 weeks upon discharge. Communicate with your primary care physician. Take your medications as prescribed. Total Time Total Time Spent Total Time Spent (In Minutes): 35 Discharge Plan Discharge Items Patient Disposition: Transfer Inpatient Rehab Fac Reason For Visit: PNEUMONIA, AMS Discharge Diagnosis: Likely aspiration pneumonia Mild proctitis Fall Hypothyroidism Activity: Resume your previous activity Non-emergency contact: Primary Care Provider Call non-emergency contact if: you have any medication questions, your symptoms worsen and your temperature is above 101 Follow-up/Referrals: Malcolm Cruz MD [Primary Care Provider] - Diet: Carb Consistent or DM2 and Heart Healthy Diet Texture: Mechanical soft (ground) Diet Comment: Minced and moist diet, side of gravy/broth/sauce to meal tray, NO STRAWS Addtl Attending Provider Instructions: Follow-up with the primary care physician within a week time. Diet recommendation: Minced and moist diet, side of gravy/broth/ostomy A, carb consistent diet, heart healthy diet;no straws. Sit up while eating. For your aspiration pneumonia and mild proctitis, continue with antibiotics for 7 more days. Probiotics added for the same duration. You need a thyroid function tests in 6 weeks upon discharge. Communicate with your primary care physician. Take your medications as prescribed. Pending Studies at Discharge: Yes (resultsAdmitting blood culture final results) Stand-Alone Forms: [facility] Skilled Items Patient informed of condition?: Yes DNR: No Discharge Level of Care: Acute rehab Communicable Disease: No Discharge Prognosis: Stable Lines: None Urinary Catheter: No Medications and DC Order Prescriptions: New doxycycline hyclate 100 mg tablet 100 mg PO BID 7 Days Qty: 14 RF: 0 amoxicillin-pot clavulanate 875-125 mg tablet 1 tab PO BID 7 Days Qty: 14 RF: 0 Probiotic 3 billion cell capsule 3,000 mmu cells PO DAILY 7 Days Qty: 7 RF: 0 Continued metformin 500 mg Tablet 1,000 mg PO BID RF: 0 glipizide 10 mg Tablet 10 mg PO BID RF: 0 tamsulosin 0.4 mg Capsule 0.4 mg PO HS RF: 0 levothyroxine 100 mcg tablet 100 mcg PO DAILYBB RF: 0 etodolac 300 mg capsule 300 mg PO BID RF: 0 omeprazole 20 mg capsule,delayed release(DR/EC) 20 mg PO DAILYBB RF: 0 escitalopram oxalate 10 mg tablet 10 mg PO DAILY RF: 0 Trulicity 4.5 mg/0.5 mL pen injector 4.5 mg SUBCUT WK RF: 0 Discontinued alprazolam 0.5 mg Tablet 0.5 mg PO TID PRN (Reason: Anxiety) RF: 0 Discharge Orders: Discharge Order (Routine); Ordered 04/30/21 Ordered By: Denzel Nath/Other Patient Handouts: High Blood Sugar (Hyperglycemia), Hypoglycemia (Low Blood Sugar), Managing Type 2 Diabetes Admission Data Admit Date/Time: 04/26/21 18:48 Attending Provider: Denzel Cardenas Admit Provider: Cornelius Dye Primary Care Provider: Malcolm Cruz Other Providers: Cornelius Dye ; [facility] ; [facility]
== END 2021-04-30 14:30 | DRG 177 ==
LOC: ED 14:40 → SUATTDRO 18:48 → 2W 18:48 → 3W 04-29 11:04